=== PATIENT | female | born 1945 | race Caucasian/White ===

== ENCOUNTER 2017-10-27 14:33 | Outpatient (CLI) | payer MEDICARE | END 2017-10-27 14:34 | disposition home or self-care (01) | LOC: BICMAMMO 14:33 | PROVIDERS: ATTEND Obstetrics & Gynecology | DX: Z12.31 Encounter for screening mammogram for malignant neoplasm of breast (principal) | CPT/HCPCS: 77063; 77067 ==

== ENCOUNTER 2020-09-14 22:24 | Inpatient (IN) | payer MEDICARE ==
[2020-09-14] MEDS ORDERED: Dextrose 5% in Water 1,000 ML IV PRN (23:35)
[2020-09-14] MEDS ORDERED: Dextrose 50% Abboject 50 ML SYRINGE SLOW IVP PRN (23:35)
[2020-09-14] MEDS ORDERED: Ventilator Sedation Protocol 1 EACH FS ONE (23:38)
[2020-09-14] MEDS ORDERED: metroNIDAZOLE 500 MG/100 ML BAG ONE (23:38)
[2020-09-14] MEDS ORDERED: Ketamine 50 MG/ML (10ML VIAL) ONE ×2 (23:41→23:42)
[2020-09-14] MEDS ORDERED: Fentanyl 100 MCG/2 ML VIAL ONE (23:41)
[2020-09-14] MEDS ORDERED: Fentanyl BOLUS 250 ML IVPB PRN (23:45)
[2020-09-14] MEDS ORDERED: Lorazepam 2 MG/ML VIAL SLOW IVP PRN (23:45)
[2020-09-14] MEDS ORDERED: Propofol BOLUS 1,000 MG/100 ML VIAL IV PRN (23:45)
[2020-09-14] MEDS ORDERED: fentaNYL Citrate/PF 2,000 MCG in Sodium Chloride 0.9% 60 ML IV SCH (23:45)
[2020-09-14] MEDS ORDERED: Midazolam HCl 2 mg/2 ml Vial ONE (23:45)
[2020-09-14] MEDS ORDERED: DISCONTINUE PREVIOUS NARCOTIC PAIN MEDICATIONS AND BENZODIAZEPINES FS SCH (23:45)
[2020-09-14] MEDS ORDERED: Morphine 2 MG/ML VIAL SLOW IVP PRN (23:45)
[2020-09-14] MEDS ORDERED: Propofol 1,000 MG/100 ML VIAL IV PRN (23:45)
[2020-09-14] MEDS ORDERED: Albumin 5% 500 ML ONE ×2 (23:47→23:48)
[2020-09-14] MEDS ORDERED: Sodium Chloride 0.9% 10 ML ONE (23:57)
[2020-09-15 00:06] LABS: INR-International Normal Ratio 1.4; PTT 35.8 sec (22.9-36.1); Prothrombin Time 17.1 sec (12.0-14.7)
[2020-09-15] MEDS ORDERED: Dextrose 50% Abboject 50 ML SYRINGE ONE ×2 (01:15)
[2020-09-15] MEDS ORDERED: Sodium Bicarb 50 MEQ/50 ML Abboject 8.4% SYRINGE ONE ×3 (01:17→16:13)
[2020-09-15] MEDS ORDERED: Diltiazem HCl 125 MG, Admixture Fee 1 EACH in Sodium Chloride 0.9% 100 ML IVPB SCH (01:30)
[2020-09-15] MEDS ORDERED: Adenosine 6 MG/2 ML VIAL ONE ×2 (01:42→01:48)
[2020-09-15] MEDS ORDERED: Amiodarone 150 MG/3 ML VIAL ONE ×5 (01:55→02:23)
[2020-09-15 02:05] LABS: SARS-CoV-2 NAA Rapid Test Not Detected (NotDetected)
[2020-09-15] MEDS ORDERED: Calcium Chloride 1 GM/10 ML Abboject SYRINGE ONE ×2 (02:30→09:23)
[2020-09-15] MEDS: Sodium Chloride 0.9% 1,000 ML IV SCH ×3 (05:34→16:28)
[2020-09-15] MEDS: Piperacillin/Tazobactam 3.375 GM in Sodium Chloride 0.9% 100 ML IVPB SCH ×5 (05:46→23:03)
[2020-09-15 06:01] LABS: ALT (SGPT) 27 U/L (8-55); AST (SGOT) 99 U/L (5-34); Albumin 1.8 g/dL (3.4-4.8); Alkaline Phosphatase 112 U/L (40-110); Anion Gap 12 mmol/L (10-20); BUN (Urea Nitrogen) 30 mg/dL (9.8-20.1); Bilirubin, Total 2.3 mg/dL (0.2-1.2); Calc. Creatinine Clearance 0 mL/min (70-130); Calcium 7.9 mg/dL (7.8-10.44); Carbon Dioxide 20 mmol/L (23-31); Chloride 110 mmol/L (98-107); Globulin 1.7 g/dL (2.4-3.5); Glucose 112 mg/dL (83-110); Magnesium 1.8 mg/dL (1.6-2.6); Phosphorus 4.7 mg/dL (2.3-4.7); Potassium 4.3 mmol/L (3.5-5.1); Protein, Total 3.5 g/dL (6.0-8.3); Sodium 138 mmol/L (136-145)
--- NOTE | 2020-09-15 06:04 | OP ---
DATE OF PROCEDURE: 09/15/2020 PREOPERATIVE DIAGNOSES: 1. Perforated viscus with acute peritonitis. 2. Colonic mass. 3. Partial small bowel obstruction. 4. Acute septic shock. 5. Acute kidney injury secondary to acute septic shock. POSTOPERATIVE DIAGNOSES: 1. Perforated viscus with acute peritonitis. 2. Colonic mass. 3. Partial small bowel obstruction. 4. Acute septic shock. 5. Acute kidney injury secondary to acute septic shock. 6. Perforated splenic flexure neoplasm with extensive intraabdominal fecal peritonitis. Additionally, extensive adhesions were encountered involving multiple loops of small bowel and abdominal wall. 7. There were also large left lower quadrant abdominal wall defects which contained multiple loops of small and large bowel as well as omentum. OPERATIONS PERFORMED: 1. Placement of triple-lumen left subclavian central venous catheter. 2. Exploratory laparotomy. 3. Extensive adhesiolysis. 4. Total colectomy with segmental small bowel resection. 5. End ileostomy. 6. Placement of feeding nasojejunal tube. ANESTHESIA: General endotracheal. ESTIMATED BLOOD LOSS: 200 mL. FLUIDS GIVEN: 3500 mL crystalloids, 500 mL of albumin, and 3 units packed red blood cells. COUNTS: Sponge and instrument counts were verified as correct x2. COMPLICATIONS: None apparent at the time of operation. INDICATIONS FOR OPERATION: A 74-year-old woman presented to Emergency Department in [place] with several days of worsening abdominal pain, malaise, anorexia, and diarrhea. Clinical and radiographic examination were consistent with perforated viscus with pneumoperitoneum and free intraperitoneal fluid. Additionally, tumor was said to be in the descending colon. Also noted is non-incarcerated left lower quadrant large abdominal wall hernia. The patient was hemodynamically unstable in septic shock. Decision was made to bring the patient back to the operating room for urgent exploratory laparotomy. FINDINGS: Consistent with extensive intraabdominal adhesions from previous abdominal operations. There was a perforation of the proximal transverse colon, just proximal to the splenic flexure, where there is a bulky colonic mass. Additionally, intraabdominal adhesions had caused multiple strictures in the distal ileum. Decision was made to incorporate this with the colectomy. Additionally, the patient underwent previous sigmoidectomy with colostomy, which was ultimately taken down for colorectal anastomosis about approximately 30 years ago. Resecting the bulky tumor in the transverse colon leaves the patient with short length of colon which will be impossible to reach the pelvis. Therefore, decision was made to complete a total colectomy and proceed with permanent ileostomy. DESCRIPTION OF OPERATION: Informed consent was obtained from the patient, was brought to the operating room and placed in supine position. Following general anesthesia, left chest wall sterilely prepped and draped in usual fashion. The skin below the left clavicle was anesthetized with 1% lidocaine. The left subclavian vein was cannulated with an 18-gauge introducer needle returning dark venous blood. Guidewire passed through the needle and advanced into the left subclavian vein without resistance. Needle was withdrawn over the guidewire. A stab incision was made adjacent to the guidewire using 11 scalpel. Dilator was passed over the guidewire dilating the subcutaneous tissues. Dilator was removed and a triple-lumen central venous catheter was advanced over the guidewire and placed in the left subclavian vein without resistance stopping at the 18 cm jemma. Guidewire was removed. Dark venous blood was aspirated from all three ports, which were individually flushed with saline. Sterile dressings were applied. Attention was then turned over to the abdominal part of the operation. At that juncture, Olguin catheter was inserted and placed to bedside drain. Orogastric tube was inserted and placed to wall suction. The abdomen was then sterilely prepped and draped in usual fashion. A midline incision was made using 10 scalpel. Incision was carried through subcutaneous tissues and maintained hemostasis using cautery. The fascia was incised at midline along the line of the incision and the peritoneum was grasped x2 with hemostats. The peritoneal cavity was carefully entered using a fresh scalpel. Upon entrance into the peritoneal cavity, extensive amount of dense adhesions were encountered and were meticulously taken down. 2 hours of the operation were spent during the adhesiolysis. At that juncture, small bowel was run from ligament of Treitz down to the level of the distal ileum, where multiple loops of small bowel was entrapped into the large left lower quadrant defect. This was meticulously dissected off the surrounding structures and the hernia contents were reduced into the peritoneal cavity. The distal sigmoid colon appeared dusky. We were then able to run the rest of the small bowel to the level of the terminal ileum. The distal ileum had long segment with multiple interrupted strictures. Decision was made to incorporate these into the right colectomy. The large intestine was inspected from the cecum through the ascending, transverse colon down to the splenic flexure where a bulky colonic mass was encountered. Distal to this, bowel appeared to be decompressed. Due to previous sigmoidectomy with primary anastomosis, not enough length of colon will be left after the transverse colonic mass is resected. We, therefore, decided to complete the total colectomy. To achieve this, the right colon was mobilized along the white line of Toldt. Hepatic flexure was sharply taken down using Metzenbaum scissors. Care was taken to avoid injury to underlying duodenum. Lesser sac was opened. Stomach was freed from the colon. Care taken to avoid injuries to the stomach itself. Hemostasis was achieved using LigaSure device. The splenic flexure was sharply taken down. The remainder of the colon was then mobilized along the white line of Toldt on the left. I created a rent through the mesorectum through which a SANDY stapler was introduced and bowel was divided. I then created a rent in the mesentery of the ileum proximal to the involved strictured segments, through this again re-loaded SANDY stapler was introduced and the bowel was divided. Mesentery of the specimen was serially divided using LigaSure device with good hemostasis and was passed off the operative field for formal transmission to Pathology. Abdominal cavity was copiously irrigated, cleared with saline. I then turned my attention to the left lower quadrant hernia defect. The hernia sac was excised and the subcutaneous pocket was irrigated, cleared with saline. Large amount of purulent fluid having been evacuated from the peritoneal cavity, the abdominal cavity was again re-irrigated until it was clear. Oozing liver surface as well as the surface of the spleen, hemostasis was achieved here using Arixtra and direct pressure. Once this areas were inspected for good hemostasis, decision was made therefore to proceed with abdominal closure. Prior to this, a feeding nasojejunal tube was inserted by Anesthesia, the tip of which was palpated by myself within the gastric lumen. I manipulated tip of this catheter into proximal small bowel without resistance. I placed a #19 Sushil drain into the left lower quadrant subcutaneous pocket created by the previous hernia defect and allowed this to exit through a separate stab incision. I then closed the peritoneal aspect of the hernia defect using interrupted sutures of 0 Vicryl. I then created a core incision in the right lower quadrant in the area chosen for the ileostomy, and this was dilated to two fingerbreadths. [place] forceps introduced through the peritoneal cavity through this defect, grasping the stapled ileum. This was pulled out through the cord defect and secured within the peritoneal cavity using interrupted sutures of 3-0 silk at 3 points. At this juncture, I placed a sheet of Seprafilm in the deep pelvis returning the rest of the small bowel to normal anatomic location. I placed two other pieces of Seprafilm between small bowel loops due to the prior extensive adhesions. All sponges and instruments having been reported as correct x2. A second #19 Sushil drain was introduced into the deep pelvis and allowed to exit the abdominal cavity through a separate stab incision. Both drains were secured to anterior abdominal wall using 2-0 silk suture. Fascia was then approximated in the midline using a running stitch of #1 single stranded PDS. Subcutaneous tissues were pulse lavaged with 3 L of saline. Deep subcutaneous tissues were approximated using interrupted sutures of 2-0 Vicryl. Skin incisions closed using keith. Sterile dressings were applied here. I turned my attention then to the ileostomy site. Staple line was excised and the functional Ольга ileostomy was perfected using interrupted sutures of 3-0 Vicryl. Ostomy appliance was then put in place. The patient tolerated the operation without any apparent complication and was returned to the intensive care unit in critical, but stable condition. Job ID: [id number] [facility]
[2020-09-15 06:18] LABS: Band 46 % (5-11); Hemoglobin 9.4 g/dL (12.0-16.0); Lymphocytes 4 % (21-51); MDiff Complete? YES; Mean Corpuscular HGB CONC 31.4 g/dL (32.0-36.0); Mean Corpuscular Hemoglobin 28.2 pg (27.0-31.0); Mean Corpuscular Volume 89.9 fL (78.0-98.0); Mean Platelet Volume 9.5 fL (7.4-10.4); Monocytes 1 % (0-10); Neutrophil 49 % (42-75); Platelet Count 80 thou/uL (130-400); Platelet Morphology Comment Appears Decreased; RBC Distribution Width 14.8 % (11.5-14.5); Red Blood Cell (RBC) Count 3.34 mill/uL (4.20-5.40); Toxic Granulation SLIGHT; Vacuoles SLIGHT; White Blood Cell (WBC) Count 21.1 thou/uL (4.8-10.8)
--- NOTE | 2020-09-15 07:19 | HP ---
HISTORY OF PRESENT ILLNESS: Ms. Lai is a 74-year-old woman, who presented to [facility] in [place] earlier today. Patient reports her daughter visited with her and found her quite deconditioned with profound fatigue, abdominal pain, malaise, and poor hygiene over the past week. She was then brought to the emergency department, where she complained of about a week history of progressive abdominal pain, diarrhea, profound fatigue, anorexia, and weight loss over several weeks. Patient denies any fevers at all. She reports some chills. She admits to some nausea, but no emesis. She denies any hematochezia or melena. PAST MEDICAL HISTORY: Pertinent for essential hypertension and diverticulosis coli, for which she underwent surgery years ago. PAST SURGICAL HISTORY: Pertinent for childhood open appendectomy. She had a total abdominal hysterectomy with salpingo-oophorectomy many years ago. Additionally, she had sigmoidectomy with end colostomy approximately 30 years ago followed by colostomy takedown 6 months later. She has had no further surgery since that time. She has never had any colonoscopy. SOCIAL HISTORY: She lives independently. She has been a since November 2019 when she lost her . 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 She denies any cigarette smoking, ethanol, or illicit drug abuse. FAMILY HISTORY: Noncontributory for this patient's age. PREHOSPITALIZATION MEDICATIONS: Some antihypertensive. She does not recall specifics. ALLERGIES: PATIENT DENIES ANY KNOWN DRUG ALLERGIES. REVIEW OF SYSTEMS: 10-point review of systems essentially unremarkable except as stated in past medical history and chief complaint. PHYSICAL EXAMINATION: GENERAL: This reveals a 74-year-old normally developed woman, who is otherwise coherent and interactive, appears stated age. The patient is alert and oriented x3. She appears to be in no acute distress at the time of my evaluation. She is obviously quite fatigued. VITAL SIGNS: Blood pressure 86/43, pulse 113 and irregular, respiratory rate is 15, temperature 97.9 degrees Fahrenheit, oxygen saturation is 96% on room air. HEENT: Reveals normocephalic and atraumatic. Pupils are equal, round, and reactive to light and accommodation. Extraocular muscles are intact bilaterally. No scleral icterus present. Oral mucosa is quite pale and dry. She has no jugular venous distention noted. HEART: Reveals irregular rate and irregular rhythm. LUNGS: Clear to auscultation bilaterally. Her breathing is regular and nonlabored. ABDOMEN: Soft, moderately distended, and diffusely tender to palpation. She has a positive rebound tenderness. She has irregularly shaped midline incisional wound as well as McBurney's wound consistent with prior history of abdominal operations. There is a hernia defect involving the lower abdominal wall on both sides. No evidence of incarceration. Liver and spleen otherwise nonpalpable below costal margins. EXTREMITIES: Reveal 1+ bilateral pedal and radial pulses. Capillary refill nevertheless less than 2 seconds in all extremities. NEUROLOGIC: Reveals no focal deficits present. LABORATORY DATA: Laboratory findings from [place] includes a CBC with 43,700 white blood cells, hemoglobin and hematocrit at 9.9 and 33.5 respectively, MCV is 87.8, platelet count is 165,000. Metabolic profile includes sodium 136, potassium 4.8, chloride is 103, bicarb is 21, BUN is 34, creatinine is 1.79. Her creatinine was normal on 03/01/2020, it was 0.80 at that time. Glucose today is 71. Lactic acid is 1.7, AST and ALT are 63 and 28 respectively. Serum lipase is less than 4 units/L. Albumin is low at 1.9 g/dL. IMAGING DATA: I have personally reviewed CT scan of the abdomen and pelvis, which was obtained in [place] and this is remarkable for a colonic mass involving the descending colon in addition to multiple loops of distended proximal small bowel and pneumoperitoneum. Large abdominal wall defect in the left lower quadrant contains loops of small and large bowel, no evidence of incarceration. There is incidental notation of small bilateral pleural effusions. IMPRESSION: 1. Acute perforated viscus, likely secondary to perforated colon neoplasm. 2. Partial small bowel obstruction. 3. Acute peritonitis secondary to #1. 4. Acute septic shock. 5. Acute kidney injury. 6. Anemia of chronic disease. 7. Moderate protein-calorie malnutrition. RECOMMENDATIONS AND PLAN: 1. Broad-spectrum antibiotic therapy. 2. Urgent exploratory laparotomy and bowel resection with possible colostomy versus primary anastomosis. 3. Aggressive, but cautious fluid resuscitation, monitoring patient's renal function and urinary output as endpoint. 4. We will initiate enteral nutritional supplementation postoperatively. Anticipate ultimate discharge of this patient to inpatient rehabilitation. 5. Above findings and plan discussed with the patient in the presence of her nurse. I have advised her of the risks and benefits of the proposed surgery to include, but not limited to bleeding, infection, injury to bowel or surrounding structures. She indicated understanding information provided. 6. We made several attempts to contact her adult daughter via the telephone number she provided without success. Patient has granted consent for this admission and surgical intervention. Job ID: [id number]
[2020-09-15] MEDS ORDERED: Magnesium 2 GM/50 ML 2 GM in Premix Bag 1 BAG IVPB SCH (07:45)
--- NOTE | 2020-09-15 07:56 | RAD ---
XR Abdomen 1 View/KUB History: Dobbhoff tube placement Comparison: Radiograph prior day Findings: A weighted feeding tube tip projects over the upper abdomen likely within the gastric body. Suction tube tip projects over the gastric body. Right lower quadrant midline surgical keith. Impression: Weighted feeding tube tip and enteric suction tube tips both project over the gastric bod y.
--- NOTE | 2020-09-15 08:06 | RAD ---
XR Chest 1 View Portable History: Intubated patient Comparison: Radiograph September 14, 2020 Findings: Moderate layering pleural effusions. Weighted feeding tube and suction enteric tube tips ar e both below the diaphragm. Endotracheal tube tip at the clavicular level. Heart size is enlarged. Impression: 1. Satisfactory location of the endotracheal tube with tip at the clavicular level. 2. Enteric section and weighted feeding tube tips are below diaphragm although out of field of view. 3. Moderate effusions are similar as well as bibasilar atelectatic changes. 4. Pneumoperitoneum not seen.
--- NOTE | 2020-09-15 08:07 | RAD ---
XR Abdomen 1 View/KUB History: Dobbhoff tube placement Comparison: Radiograph same day Findings: A weighted feeding tube tip projects over the gastric body. Drainage catheters project over the left lower quadrant and central deep left pelvis. Surgical staple s along the abdomen/pelvis. Possible ostomy site over the pelvis. Small volume pneumoperitoneum. Impression: Weighted feeding tube tip and enteric tube suction tips both project over the gastric bod y.
[2020-09-15] MEDS: Famotidine/PF 20 mg/2ml Vial SLOW IVP SCH ×2 (09:00→21:45)
[2020-09-15] MEDS: Enoxaparin Sodium 30 MG/0.3 ML SYRINGE SC SCH (09:00)
[2020-09-15] MEDS ORDERED: Sodium Chloride 0.9% 500 ML IV SCH (09:15)
[2020-09-15] MEDS ORDERED: Esmolol 100 MG/10 ML VIAL ONE (09:23)
[2020-09-15] MEDS ORDERED: Dexamethasone 20 MG/5 ML VIAL ONE (09:23)
[2020-09-15] MEDS ORDERED: Ondansetron PF 4 MG/2 ML Vial ONE (09:23)
[2020-09-15] MEDS ORDERED: Rocuronium Bromide 10 MG/ML (10ML VIAL) ONE (09:23)
--- NOTE | 2020-09-15 09:49 | CT ---
CT OF BRAIN PERFORMED WITHOUT CONTRAST ENHANCEMENT: HISTORY: Altered mental status. FINDINGS: There is some mild generalized ventricular and sulcal prominence which is fairly age-appropriate. Th ere are no signs of intracerebral hemorrhage or extraaxial fluid collections. Mastoid air cells and visualized sinuses are clear. NG tube is present. IMPRESSION: No acute intracranial abnormalities. POS: ZOË
[2020-09-15] MEDS: Amiodarone 450 MG, Admixture Fee 1 EACH in Dextrose 5% in Water 250 ML IVPB SCH ×2 (11:23→23:34)
[2020-09-15] MEDS ORDERED: Sodium Chloride 0.9% 1,000 ML IV SCH (11:30)
[2020-09-15] MEDS ORDERED: Sodium Bicarbonate 50 MEQ in Dextrose 5% in Water 1,000 ML IV SCH (12:45)
[2020-09-15] MEDS ORDERED: Sodium Bicarb 50 MEQ/50 ML Abboject 8.4% SYRINGE IVP SCH ×2 (12:45→16:15)
[2020-09-15] MEDS ORDERED: Fluconazole In NaCl,Iso-Osm 400 MG in Premix Bag 1 BAG IVPB SCH (12:45)
[2020-09-15] MEDS ORDERED: Calcium Chloride 13.6 MEQ in Sodium Chloride 0.9% 100 ML IVPB SCH (12:45)
[2020-09-15] MEDS ORDERED: Artificial Tear Sol 15 ML BOT EA EYE PRN (12:58)
[2020-09-15 16:05] LABS: CO2 Tension 38.7 mmHg (35.0-45.0); O2 Tension (PaO2), arterial 106.6 mmHg (> 70.0); pH, Arterial 7.31 (7.35-7.45)
[2020-09-15 16:06] LABS: Actual Bicarbonate (HCO3a) 19.2 mEq/L (22-28); Analyzer IN Cardio ER; Base Excess (BEa) -6.4 mEq/L (-2.0 to +3.0); Calcium, Ionized (arterial) 1.33 mmol/L (1.12-1.30); Carboxyhemoglobin (COHb) 0.3 gm% (0.0-3.0); Hemoglobin (Hb) 9.6 g/dL (12.0-16.0); Potassium - ABG Lab 3.37 mmol/L (3.70-5.30)
[2020-09-15 16:11] LABS: Puncture Site Arterial Line
[2020-09-15 16:12] LABS: ALV-art Gradient 130.225 mmHg (0-20)
--- NOTE | 2020-09-15 16:13 | PRG ---
DATE OF SERVICE: 09/15/2020 SUBJECTIVE: The patient was seen this morning during rounds. First independently and then with Dr. Carcamo. She is intubated, but not sedated. She has not woken up from anesthesia yet. She is postoperative day 0, status post ex lap, extensive adhesiolysis, total colectomy with segmental small-bowel resection, and end ileostomy. There was concern as the patient did not have a gag or a cough reflex. Pupils were equal and reactive bilaterally. CT scan of the brain was completed at that time. Otherwise, the patient was continuing fluid resuscitation with intermittently hypotensive with associated decline in urinary output. She was responsive to IV fluid resuscitation. OBJECTIVE: VITAL SIGNS: Temperature 95, pulse 68, respirations 10, oxygen saturation 99% on the ventilator, blood pressure 93/56. GENERAL: Elderly female, lying in bed, intubated and sedated with no signs of acute distress. PULMONARY: Equal chest rise and fall. Clear breath sounds bilaterally. No signs of acute respiratory distress. CARDIAC: Regular rate and rhythm. GI: Abdomen is soft, nondistended. Midline abdominal wound dressing is in place with no signs of oozing. Her ileostomy is in place with no output. Tissue appears well perfused. EXTREMITIES: 2+ pulses in all extremities. Gross motor and sensation intact. There is some mild generalized swelling. NEUROLOGIC: GCS is 3T. LABORATORY FINDINGS: White count 21.1, hemoglobin 9.4, hematocrit 30.0, platelets 80. Sodium 138, potassium 4.3, chloride 110, bicarb 20, BUN 30, creatinine 1.20, glucose 112, lactic acid 1.2, phosphorus 4.7, magnesium 1.8. Cortisol is 108.7. DIAGNOSTIC FINDINGS: CT of the brain completed this morning demonstrates no acute intrathoracic abnormalities. ASSESSMENT: 1. Postop day #1, status post ex lap, adhesiolysis, total colectomy with segmental small-bowel resection and end ileostomy due to perforated viscus, colon mass, and peritonitis. 2. Acute kidney injury, improving. 3. Acute respiratory failure due to sepsis. 4. Sacral decubitus ulcer. 5. History of diverticulitis, hypertension, colostomy takedown, and partial bowel resection. PLAN: Continue n.p.o. Continue mechanical ventilation. Continue to monitor for the patient wake up from anesthesia. Pain control and sedation as needed. We will start the patient on Diflucan today. Continue Zosyn. Wound care to evaluate the patient. Continue JABARI drains x2. One amp of bicarb and 1 g of calcium given at bedside. Replace other electrolytes including magnesium. Continue fluid resuscitation and continue to monitor endpoint closely. This patient was seen and evaluated by Dr. Carcamo and myself this morning during rounds. Job ID: [id number] MTDD
[2020-09-15] MEDS: Lactated Ringer's 1,000 ML IV SCH (17:42)
[2020-09-15 21:53] LABS: Actual Bicarbonate (HCO3a) 19.1 mEq/L (22-28); Base Excess (BEa) -4.8 mEq/L (-2.0 to +3.0); CO2 Tension 30.9 mmHg (35.0-45.0); Calcium, Ionized (arterial) 1.29 mmol/L (1.12-1.30); Carboxyhemoglobin (COHb) 0.9 gm% (0.0-3.0); Hemoglobin (Hb) 9.2 g/dL (12.0-16.0); O2 Tension (PaO2), arterial 99.1 mmHg (> 70.0); Potassium - ABG Lab 3.21 mmol/L (3.70-5.30); pH, Arterial 7.41 (7.35-7.45)
[2020-09-15 21:55] LABS: ALV-art Gradient 147.475 mmHg (0-20); Puncture Site Arterial Line
--- NOTE | 2020-09-15 22:04 | RAD ---
CHEST ONE VIEW: History: Intubated patient. Comparison: Radiograph, same day. FINDINGS: Endotracheal tube tip at the clavicular level. Left subclavian central venous catheter with tip in th e SVC. Feeding tube and suction enteric tube tips below the diaphragm, out of the field of view. Prom inent right hemithorax skin fold. Moderate effusions. Airspace opacities are similar. IMPRESSION: Similar examination of the chest. POS: HOME
[2020-09-15 22:39] LABS: Hemoglobin 9.1 g/dL (12.0-16.0); Mean Corpuscular HGB CONC 31.5 g/dL (32.0-36.0); Mean Corpuscular Volume 88.8 fL (78.0-98.0); Mean Platelet Volume 10.5 fL (7.4-10.4); Platelet Count 61 thou/uL (130-400); RBC Distribution Width 14.9 % (11.5-14.5); Red Blood Cell (RBC) Count 3.24 mill/uL (4.20-5.40); White Blood Cell (WBC) Count 22.8 thou/uL (4.8-10.8)
[2020-09-15 22:49] LABS: Band 43 % (5-11); Crenated RBC SLIGHT = 1-5 cells (100X) (None Seen); Lymphocytes 5 % (21-51); MDiff Complete? YES; Metamyelocyte 3 % (0-0); Monocytes 2 % (0-10); Neutrophil 47 % (42-75); Platelet Morphology Comment Appears Decreased
[2020-09-15 22:56] LABS: Anion Gap 16 mmol/L (10-20); BUN (Urea Nitrogen) 30 mg/dL (9.8-20.1); Calc. Creatinine Clearance 48 mL/min (70-130); Calcium 8.5 mg/dL (7.8-10.44); Carbon Dioxide 20 mmol/L (23-31); Chloride 112 mmol/L (98-107); Glucose 84 mg/dL (83-110); Magnesium 2.5 mg/dL (1.6-2.6); Phosphorus 3.2 mg/dL (2.3-4.7); Potassium 3.3 mmol/L (3.5-5.1); Sodium 145 mmol/L (136-145)
[2020-09-16] MEDS: Lactated Ringer's 1,000 ML IV SCH ×3 (02:45→17:13)
[2020-09-16] MEDS ORDERED: Potassium Chloride 40 MEQ in Sodium Chloride 0.9% 250 ML 250 ML IVPB SCH (03:00)
--- NOTE | 2020-09-16 03:31 | PRG ---
DATE OF SERVICE: 09/16/2020 SUBJECTIVE: The patient was seen in the critical care unit, sedated on full mechanical ventilatory support. The patient's vital signs are currently stable and she remains afebrile. The patient's urinary output has been marginal most of the day, but is starting to pick. The patient was given fluids and albumin earlier today for low urinary output. The patient's maintenance IV fluids were changed to lactated Ringer's. LABORATORY DATA: This evening, WBC 22.8, RBC 3.24, hemoglobin 9.1, hematocrit 28.8. Sodium 145, potassium 3.3, chloride 112, carbon dioxide 20, BUN 30, creatinine 1.23, estimated GFR 42, magnesium 2.5. PLAN: Continue full mechanical ventilatory support. Continue to monitor hemodynamics and urinary output. We will replace electrolytes. Job ID: [id number]
[2020-09-16 05:07] LABS: Lactic Acid 0.9 mmol/L (0.5-2.2)
[2020-09-16 05:12] LABS: Anion Gap 16 mmol/L (10-20); BUN (Urea Nitrogen) 31 mg/dL (9.8-20.1); Calc. Creatinine Clearance 49 mL/min (70-130); Calcium 8.4 mg/dL (7.8-10.44); Carbon Dioxide 19 mmol/L (23-31); Chloride 113 mmol/L (98-107); Glucose 102 mg/dL (83-110); Magnesium 2.4 mg/dL (1.6-2.6); Phosphorus 2.8 mg/dL (2.3-4.7); Potassium 3.4 mmol/L (3.5-5.1); Sodium 145 mmol/L (136-145)
[2020-09-16 05:37] LABS: Anisocytosis SLIGHT = 6-15 cells (100X) (0-5/hpf); Band 38 % (5-11); Lymphocytes 9 % (21-51); MDiff Complete? YES; Mean Corpuscular Hemoglobin 27.8 pg (27.0-31.0); Mean Corpuscular Volume 89.6 fL (78.0-98.0); Mean Platelet Volume 6.1 fL (7.4-10.4); Neutrophil 53 % (42-75); Platelet Count 49 thou/uL (130-400); Platelet Morphology Comment Appears Decreased; RBC Distribution Width 15.1 % (11.5-14.5); Red Blood Cell (RBC) Count 3.24 mill/uL (4.20-5.40); White Blood Cell (WBC) Count 20.9 thou/uL (4.8-10.8)
[2020-09-16] MEDS: Piperacillin/Tazobactam 3.375 GM in Sodium Chloride 0.9% 100 ML IVPB SCH ×4 (05:42→23:16)
[2020-09-16] MEDS ORDERED: Potassium Phosphate 30 MMOL in Sodium Chloride 0.9% 250 ML 250 ML IVPB SCH (07:15)
[2020-09-16 07:46] LABS: Actual Bicarbonate (HCO3a) 18.2 mEq/L (22-28); Base Excess (BEa) -5.4 mEq/L (-2.0 to +3.0); CO2 Tension 28.8 mmHg (35.0-45.0); Calcium, Ionized (arterial) 1.28 mmol/L (1.12-1.30); Carboxyhemoglobin (COHb) 1.1 gm% (0.0-3.0); Hemoglobin (Hb) 9.5 g/dL (12.0-16.0); O2 Tension (PaO2), arterial 129.3 mmHg (> 70.0); Potassium - ABG Lab 3.44 mmol/L (3.70-5.30); pH, Arterial 7.42 (7.35-7.45)
[2020-09-16 08:14] LABS: Puncture Site RRA
--- NOTE | 2020-09-16 08:14 | RAD ---
XR Chest 1 View Portable History: Intubated patient Comparison: Radiograph prior day Findings: Moderate effusions are similar. Dense bibasilar atelectasis is similar. The central venous catheter is similar as well as the endotracheal tube along with the weighted feeding tube and enteric suction tubes. Impression: Similar examination of the chest.
[2020-09-16] MEDS ORDERED: Acetaminophen W/ Codeine 5 ML UDCUP PO PRN (08:47)
[2020-09-16] MEDS ORDERED: Morphine 2 MG/ML VIAL SLOW IVP PRN ×2 (08:49→11:45)
[2020-09-16] MEDS ORDERED: Fluconazole In NaCl,Iso-Osm 400 MG in Premix Bag 1 BAG IVPB SCH (09:00)
[2020-09-16] MEDS ORDERED: Furosemide 20 MG/2 ML VIAL SLOW IVP SCH (09:00)
[2020-09-16] MEDS: Famotidine/PF 20 mg/2ml Vial SLOW IVP SCH ×2 (09:18→20:52)
[2020-09-16] MEDS: Enoxaparin Sodium 30 MG/0.3 ML SYRINGE SC SCH ×2 (09:19→09:31)
[2020-09-16] MEDS: Acetaminophen 325 MG/10.15 ML UDCUP PO SCH ×3 (09:31→21:57)
[2020-09-16] MEDS ORDERED: Metoprolol Tartrate 5 MG/5 ML VIAL ONE (10:19)
[2020-09-16] MEDS ORDERED: Albumin 5% 250 ML ONE (10:29)
[2020-09-16] MEDS ORDERED: Metolazone 2.5 MG TAB PO SCH (10:30)
[2020-09-16] MEDS ORDERED: Metoprolol Tartrate 5 MG/5 ML VIAL IVP SCH (10:30)
[2020-09-16 11:14] LABS: Actual Bicarbonate (HCO3a) 19.7 mEq/L (22-28); Base Excess (BEa) -8.9 mEq/L (-2.0 to +3.0); CO2 Tension 55.5 mmHg (35.0-45.0); Calcium, Ionized (arterial) 1.28 mmol/L (1.12-1.30); Carboxyhemoglobin (COHb) 0.8 gm% (0.0-3.0); Hemoglobin (Hb) 10.6 g/dL (12.0-16.0); O2 Tension (PaO2), arterial 68.8 mmHg (> 70.0); Potassium - ABG Lab 4.34 mmol/L (3.70-5.30)
[2020-09-16 11:15] LABS: ALV-art Gradient 360.925 mmHg (0-20); Puncture Site Arterial Line; pH, Arterial 7.17 (7.35-7.45)
[2020-09-16] MEDS ORDERED: Fentanyl BOLUS 250 ML IVPB PRN (11:45)
[2020-09-16] MEDS ORDERED: Ventilator Sedation Protocol 1 EACH FS SCH (11:45)
[2020-09-16] MEDS ORDERED: Propofol BOLUS 1,000 MG/100 ML VIAL IV PRN (11:45)
[2020-09-16] MEDS ORDERED: Propofol 1,000 MG/100 ML VIAL IV PRN (11:45)
--- NOTE | 2020-09-16 12:02 | RAD ---
XR Chest 1 View Portable History: Reintubated Comparison: Radiograph same day Findings: Endotracheal tube tip at the clavicular level. Large effusions. Dense atelectasis both lung bases. Central venous catheter is similar. The enteric suction tube has been removed. The weighted feeding tube tip is below diaphragm although out of field of view. No pneumothorax. Impression: 1. Endotracheal tube tip at the clavicular level and the position. 2. Removed enteric suction tube.
[2020-09-16] MEDS: fentaNYL Citrate/PF 2,000 MCG in Sodium Chloride 0.9% 60 ML IV SCH (12:42)
[2020-09-16 12:51] LABS: Actual Bicarbonate (HCO3a) 18.3 mEq/L (22-28); Base Excess (BEa) -5.6 mEq/L (-2.0 to +3.0); CO2 Tension 29.9 mmHg (35.0-45.0); Calcium, Ionized (arterial) 1.22 mmol/L (1.12-1.30); Carboxyhemoglobin (COHb) 0.4 gm% (0.0-3.0); O2 Tension (PaO2), arterial 463.9 mmHg (> 70.0); Potassium - ABG Lab 3.99 mmol/L (3.70-5.30)
[2020-09-16 12:53] LABS: ALV-art Gradient -216.075 mmHg (0-20); Puncture Site Arterial Line
--- NOTE | 2020-09-16 14:33 | PRG ---
DATE OF SERVICE: 09/16/2020 I am seeing Ms. Lai today. She is a 74-year-old woman, who is postoperative day #1, status post exploratory laparotomy, extensive adhesiolysis, total colectomy with ileostomy. The patient is awake and alert on mechanical ventilator support. This morning, moving all extremities and following commands. Urinary output has been marginal overnight. She is on no vasopressor or inotropic support. OBJECTIVE: VITAL SIGNS: This morning included blood pressure 113/83, pulse is 73, respiratory rate 22, maximum temperature in last 24 hours is 98.1 degrees Fahrenheit, and oxygen saturation is 100% on FiO2 of 40%. HEENT: Pupils are equal, round, and reactive to light bilaterally. NECK: She has no jugular venous distention noted. HEART: Reveals regular rate and rhythm. No murmurs or gallops auscultated. LUNGS: Clear to auscultation bilaterally. Breathing, regular and unlabored. ABDOMEN: Soft and nondistended. Ileostomy is viable and nonproductive at this time. SKIN: Incision remains intact, clean, and dry. Peritoneal Kamar-Quinn drain returned 720 mL of serosanguinous fluid over the last 24 hours. The subcutaneous Kamar-Quinn drain returned 90 mL of serosanguinous fluid . EXTREMITIES: Reveal 2+ radial and pedal pulses bilaterally. NEUROLOGIC: Reveals no focal deficits present. LABORATORY FINDINGS: Include a CBC with 20,900 white blood cells, hemoglobin and hematocrit of 9.0 and 29.0 respectively, and platelet count is 49,000. Metabolic profile; sodium 145, potassium 3.4, chloride is 113, bicarb is 19, BUN is 31, creatinine is 1.20, glucose is 102, magnesium is 2.4, and phosphorus is 2.8. Chest x-ray today reveals residual right pleural effusion. No pneumothorax present. IMPRESSION: 1. Postop day #1, status post exploratory laparotomy, extensive adhesiolysis, total colectomy with permanent end-ileostomy. Pathology report is pending with regard to the colonic tumor mass. 2. Acute septic shock, stable. 3. Clinical oliguric renal insufficiency. I suspect the patient is probably still under resuscitated. 4. Acute hypokalemia. 5. Acute metabolic acidosis of hyperchloremic nature. 6. Acute hypophosphatemia. 7. Acute Respiratory Failure PLAN: 1. The patient was weaned and extubated and was reintubated within 2 hours for worsening hypoxemia as well as hypercarbia. 2. Correct abnormal electrolytes. 3. Increase total fluid intake. The patient was noted with acute hypoalbuminemia with serum albumin of 1.8 yesterday. Therefore, we will start albumin infusion to increase oncotic pressure in the meantime. We will obtain a 2D echocardiography to evaluate this patient's cardiac function. Above findings and plan discussed with the patient prior to intubation and also with the patient's son by telephone conversation. She indicates understanding information provided. I have answered her questions. Total critical care time is 45 minutes. Job ID: [id number] MTDD
[2020-09-16] MEDS: Albumin 25% 25 GM/100 ML BOT IVPB SCH ×2 (14:57→23:15)
[2020-09-16] MEDS ORDERED: Lactated Ringer's 1,000 ML IV SCH (15:45)
[2020-09-16 18:05] LABS: Lactic Acid 1.3 mmol/L (0.5-2.2)
[2020-09-16 18:09] LABS: ALT (SGPT) 24 U/L (8-55); AST (SGOT) 43 U/L (5-34); Albumin 2.6 g/dL (3.4-4.8); Alkaline Phosphatase 158 U/L (40-110); Anion Gap 17 mmol/L (10-20); BUN (Urea Nitrogen) 32 mg/dL (9.8-20.1); Bilirubin, Total 3.4 mg/dL (0.2-1.2); Calc. Creatinine Clearance 45 mL/min (70-130); Calcium 8.2 mg/dL (7.8-10.44); Carbon Dioxide 18 mmol/L (23-31); Chloride 114 mmol/L (98-107); Globulin 1.5 g/dL (2.4-3.5); Glucose 151 mg/dL (83-110); Magnesium 2.2 mg/dL (1.6-2.6); Phosphorus 3.3 mg/dL (2.3-4.7); Potassium 3.7 mmol/L (3.5-5.1); Protein, Total 4.1 g/dL (6.0-8.3); Sodium 145 mmol/L (136-145)
[2020-09-16 18:14] LABS: Band 54 % (5-11); Hemoglobin 7.7 g/dL (12.0-16.0); Hypochromia SLIGHT = 6-15 cells (100X) (0-5/hpf); Large Platelets SLIGHT; Lymphocytes 11 % (21-51); MDiff Complete? YES; Mean Corpuscular HGB CONC 31.6 g/dL (32.0-36.0); Mean Corpuscular Volume 88.8 fL (78.0-98.0); Mean Platelet Volume 12.4 fL (7.4-10.4); Monocytes 1 % (0-10); Neutrophil 33 % (42-75); Platelet Count 30 thou/uL (130-400); Platelet Morphology Comment Appears Decreased; Polychromasia SLIGHT = 2-3 cells (100X) (0-2/hpf); RBC Distribution Width 15.2 % (11.5-14.5); Reactive Lymphocytes 1 % (0-10); Red Blood Cell (RBC) Count 2.76 mill/uL (4.20-5.40); Target Cells SLIGHT = 2-5 cells (100X) (0-1/hpf); White Blood Cell (WBC) Count 12.7 thou/uL (4.8-10.8)
[2020-09-16] MEDS: Amiodarone 450 MG, Admixture Fee 1 EACH in Dextrose 5% in Water 250 ML IVPB SCH (18:19)
[2020-09-16] MEDS ORDERED: Potassium Phosphate 15 MMOL in Sodium Chloride 0.9% 250 ML 250 ML IVPB SCH (19:00)
[2020-09-16] MEDS ORDERED: Sodium Bicarb 50 MEQ/50 ML Abboject 8.4% SYRINGE IVP SCH (22:30)
[2020-09-17] MEDS ORDERED: Sodium Bicarb 50 MEQ/50 ML Abboject 8.4% SYRINGE IVP SCH (00:15)
[2020-09-17] MEDS: Lactated Ringer's 1,000 ML IV SCH ×3 (03:37→17:50)
[2020-09-17] MEDS: Acetaminophen 325 MG/10.15 ML UDCUP PO SCH ×4 (03:41→20:25)
[2020-09-17] MEDS ORDERED: Furosemide 100 MG in Sodium Chloride 0.9% 100 ML IVPB SCH (04:00)
[2020-09-17] MEDS: DOBUTamine 500 mg/250 ml 500 MG in Premix Bag 1 BAG IVPB SCH ×2 (04:12→09:30)
[2020-09-17 04:29] LABS: Anion Gap 15 mmol/L (10-20); BUN (Urea Nitrogen) 36 mg/dL (9.8-20.1); Calc. Creatinine Clearance 45 mL/min (70-130); Calcium 8.2 mg/dL (7.8-10.44); Carbon Dioxide 22 mmol/L (23-31); Chloride 112 mmol/L (98-107); Glucose 178 mg/dL (83-110); Magnesium 2.2 mg/dL (1.6-2.6); Phosphorus 3.8 mg/dL (2.3-4.7); Potassium 3.6 mmol/L (3.5-5.1); Sodium 145 mmol/L (136-145)
[2020-09-17 05:10] LABS: Hemoglobin 8.4 g/dL (12.0-16.0); Mean Corpuscular Hemoglobin 28.4 pg (27.0-31.0); Mean Corpuscular Volume 88.7 fL (78.0-98.0); Mean Platelet Volume 13.9 fL (7.4-10.4); Platelet Count 24 thou/uL (130-400); RBC Distribution Width 15.3 % (11.5-14.5); Red Blood Cell (RBC) Count 2.95 mill/uL (4.20-5.40); White Blood Cell (WBC) Count 9.7 thou/uL (4.8-10.8)
[2020-09-17 05:12] LABS: Band 25 % (5-11); Lymphocytes 12 % (21-51); MDiff Complete? YES; Myelocyte 1 % (0-0); Neutrophil 62 % (42-75); Platelet Morphology Comment Appears Decreased; Target Cells SLIGHT = 2-5 cells (100X) (0-1/hpf)
--- NOTE | 2020-09-17 05:23 | PRG ---
DATE OF SERVICE: 09/16/2020 SUBJECTIVE: The patient was seen during evening rounds in the critical care unit. The patient is currently sedated and on full ventilatory support. The patient has had a low urinary output all day. The patient did receive albumin and a liter bolus of normal saline earlier today. The patient does continue to follow commands. The patient is currently not on any vasopressors or inotropes. OBJECTIVE: VITAL SIGNS: Stable and she remains afebrile. The patient's JABARI drain has a minimal serosanguineous output. LABORATORY DATA: P.m. labs include WBC 12.7, RBC 2.76, hemoglobin 7.7, hematocrit 24.5, platelets 30. PLAN: We will transfuse 1 unit of packed red blood cells as the patient's hemoglobin is 7.7 and her urinary output is low. Continue to monitor urinary output and hemodynamics. We will start the patient on dobutamine as her SVRI is elevated and cardiac output and cardiac index are low. Continue supportive care and full ventilatory support. Pending echocardiogram. The plan was discussed with Dr. Carcamo. Job ID: [id number]
[2020-09-17] MEDS: Piperacillin/Tazobactam 3.375 GM in Sodium Chloride 0.9% 100 ML IVPB SCH (06:17)
--- NOTE | 2020-09-17 07:57 | RAD ---
Portable frontal chest radiograph: 09/17/2020 COMPARISON: 09/16/2020 HISTORY: Intubated patient FINDINGS: Stable endotracheal tube, Dobbhoff feeding tube, and left vascular catheter. New nasogastri c tube extends into the left upper quadrant. Persistent pulmonary vascular congestion. Persistent bibasilar airspace disease/consolidation with associated pleural effusions, left greater than right. IMPRESSION: New nasogastric tube-otherwise unchanged.
[2020-09-17 08:11] LABS: Actual Bicarbonate (HCO3a) 18.9 mEq/L (22-28); Base Excess (BEa) -3.2 mEq/L (-2.0 to +3.0); CO2 Tension 24.4 mmHg (35.0-45.0); Calcium, Ionized (arterial) 1.17 mmol/L (1.12-1.30); Carboxyhemoglobin (COHb) 1.1 gm% (0.0-3.0); Hemoglobin (Hb) 8.9 g/dL (12.0-16.0); Potassium - ABG Lab 3.31 mmol/L (3.70-5.30); pH, Arterial 7.51 (7.35-7.45)
[2020-09-17 08:12] LABS: Puncture Site Arterial Line
[2020-09-17] MEDS: Metolazone 5 MG TAB PO SCH (09:26)
[2020-09-17 09:29] LABS: Actual Bicarbonate (HCO3a) 21.3 mEq/L (22-28); Base Excess (BEa) -2.2 mEq/L (-2.0 to +3.0); Calcium, Ionized (arterial) 1.17 mmol/L (1.12-1.30); Carboxyhemoglobin (COHb) 0.7 gm% (0.0-3.0); Hemoglobin (Hb) 9.2 g/dL (12.0-16.0); O2 Tension (PaO2), arterial 150.3 mmHg (> 70.0); Potassium - ABG Lab 3.29 mmol/L (3.70-5.30); pH, Arterial 7.44 (7.35-7.45)
[2020-09-17] MEDS: Fluconazole In NaCl,Iso-Osm 200 MG in Premix Bag 1 BAG IVPB SCH (09:29)
[2020-09-17] MEDS: Enoxaparin Sodium 30 MG/0.3 ML SYRINGE SC SCH (09:29)
[2020-09-17 09:30] LABS: Puncture Site Arterial Line
[2020-09-17] MEDS: Albumin 25% 25 GM/100 ML BOT IVPB SCH (09:33)
[2020-09-17] MEDS: fentaNYL Citrate/PF 2,000 MCG in Sodium Chloride 0.9% 60 ML IV SCH (10:36)
[2020-09-17] MEDS: Amiodarone 450 MG, Admixture Fee 1 EACH in Dextrose 5% in Water 250 ML IVPB SCH (11:59)
[2020-09-17] MEDS: Piperacillin/Tazobactam 2.25 GM in Sodium Chloride 0.9% 100 ML IVPB SCH ×3 (11:59→23:38)
[2020-09-17] MEDS: Lorazepam 2 MG/ML VIAL SLOW IVP PRN (13:48)
[2020-09-17 14:15] LABS: Critical Call w/ Read Back CCU.JAG; Hemoglobin 8.4 g/dL (12.0-16.0); Mean Corpuscular HGB CONC 32.2 g/dL (32.0-36.0); Mean Corpuscular Hemoglobin 28.5 pg (27.0-31.0); Mean Corpuscular Volume 88.6 fL (78.0-98.0); Mean Platelet Volume 13.5 fL (7.4-10.4); Platelet Count 21 thou/uL (130-400); RBC Distribution Width 15.7 % (11.5-14.5); Red Blood Cell (RBC) Count 2.96 mill/uL (4.20-5.40); White Blood Cell (WBC) Count 11.8 thou/uL (4.8-10.8)
[2020-09-17 14:23] LABS: Anion Gap 13 mmol/L (10-20); BUN (Urea Nitrogen) 33 mg/dL (9.8-20.1); Calc. Creatinine Clearance 45 mL/min (70-130); Calcium 7.9 mg/dL (7.8-10.44); Carbon Dioxide 23 mmol/L (23-31); Chloride 113 mmol/L (98-107); Glucose 177 mg/dL (83-110); Magnesium 2.1 mg/dL (1.6-2.6); Phosphorus 3.1 mg/dL (2.3-4.7); Potassium 3.4 mmol/L (3.5-5.1); Sodium 146 mmol/L (136-145)
[2020-09-17 14:42] LABS: Band 12 % (5-11); Lymphocytes 6 % (21-51); Monocytes 1 % (0-10); Neutrophil 81 % (42-75)
[2020-09-17 14:43] LABS: MDiff Complete? YES
[2020-09-17 14:44] LABS: Anisocytosis SLIGHT = 6-15 cells (100X) (0-5/hpf); Target Cells SLIGHT = 2-5 cells (100X) (0-1/hpf); Vacuoles MODERATE
[2020-09-17] MEDS ORDERED: Potassium Phosphate 30 MMOL in Sodium Chloride 0.9% 250 ML 250 ML IVPB SCH (16:30)
--- NOTE | 2020-09-17 16:47 | PRG ---
DATE OF SERVICE: 09/17/2020 SUBJECTIVE: The patient was seen this morning during rounds. She is intubated and sedated. Overnight, the patient was placed on a Lasix drip as well as a dobutamine drip. Since that time, the patient's urinary output has improved minimally from 0 to 5. She is hemodynamically stable. Awake and alert. Answers questions appropriately. Nursing at the bedside reports no significant changes, JABARI drains continue to put out serosanguineous output. OBJECTIVE: VITAL SIGNS: Temperature 97.6, pulse 111, respirations 14, oxygen saturation 100% on the ventilator, and blood pressure 128/95. GENERAL: An ill-appearing elderly female, intubated and sedated, with no signs of acute distress. PULMONARY: Equal chest rise and fall. Clear breath sounds bilaterally and slightly diminished at the bases. No signs of acute respiratory distress. CARDIAC: Tachycardic, but regular rhythm. GI: Abdomen is soft, appropriately tender to palpation, nondistended. Ostomy is well perfused and there is a green output in bag. No gas. Midline abdominal wound is clean, dry, and intact. Saleem were removed and replaced by nursing today. Two left lower quadrant drains, one with higher outputs with serosanguineous output and the other with serous output. EXTREMITIES: 2+ pulses in all extremities. Edema throughout upper and lower extremities. NEUROLOGIC: GCS is eyes 3, verbal 1T, and motor 6. LABORATORY FINDINGS: White count 9.7, hemoglobin 8.4, hematocrit 26.2, and platelets 24. Sodium 146, potassium 3.6, chloride 111, bicarb 22, BUN 36, creatinine 1.29, and glucose 178. Phosphorus 3.8. Magnesium 2.2. BNP 476. DIAGNOSTIC FINDINGS: Chest x-ray completed this morning demonstrates new nasogastric tube, otherwise unchanged. Echo completed today demonstrates ejection fraction is visually estimated at 45% to 50%, left ventricular size is normal, apex is hypokinetic. ASSESSMENT: 1. Postoperative day 2 status post exploratory laparotomy, extensive adhesiolysis, total colectomy with segmental small-bowel resection, and end colostomy for colon mass and colon rupture. 2. Acute respiratory failure due to sepsis. 3. Sepsis. 4. Acute kidney injury, slightly worsened. 5. Supraventricular tachycardia, now rate controlled. 6. Thrombocytopenia. 7. History of diverticulitis. 8. Hypertension. 9. Colostomy takedown. 10. Partial bowel resection. PLAN: Continue n.p.o. Continue dobutamine and Lasix drips. Re-evaluate labs this afternoon. Continue amiodarone drip. Continue Zosyn. We will renal dose the patient's antibiotics. Job ID: [id number]
[2020-09-17] MEDS: Famotidine/PF 20 mg/2ml Vial SLOW IVP SCH ×2 (20:26→20:40)
--- NOTE | 2020-09-18 01:38 | PRG ---
DATE OF SERVICE: 09/17/2020 The patient was seen during evening rounds in the critical care unit. The patient remains on full ventilatory support. The patient is sedated, but arousable and follows commands. The patient remains on a dobutamine drip at this time. The patient's Lovenox has been held due to her thrombocytopenia. The patient had her electrolytes replaced earlier today. The patient is hypothermic, currently on a warmer. The patient's urinary output has increased some today. Later in the night, the patient's blood pressure did drop. Albumin was given. We will continue to monitor urinary output and hemodynamics. We will continue to warm patient for hypothermia. Continue full mechanical ventilatory support until patient is hemodynamically stable. Job ID: [id number]
[2020-09-18] MEDS: Acetaminophen 325 MG/10.15 ML UDCUP PO SCH ×4 (03:07→20:18)
[2020-09-18] MEDS: Amiodarone 450 MG, Admixture Fee 1 EACH in Dextrose 5% in Water 250 ML IVPB SCH ×2 (03:10→17:57)
[2020-09-18 04:11] LABS: Magnesium 2.1 mg/dL (1.6-2.6); Phosphorus 4.5 mg/dL (2.3-4.7)
[2020-09-18 04:15] LABS: Platelet Count 20 thou/uL (130-400)
[2020-09-18 04:53] LABS: Anisocytosis SLIGHT = 6-15 cells (100X) (0-5/hpf); Band 33 % (5-11); Hemoglobin 8.3 g/dL (12.0-16.0); Lymphocytes 10 % (21-51); MDiff Complete? YES; Mean Corpuscular HGB CONC 30.7 g/dL (32.0-36.0); Mean Corpuscular Hemoglobin 27.6 pg (27.0-31.0); Mean Corpuscular Volume 89.9 fL (78.0-98.0); Mean Platelet Volume 14.7 fL (7.4-10.4); Neutrophil 57 % (42-75); Platelet Morphology Comment Appears Decreased; RBC Distribution Width 15.8 % (11.5-14.5); Red Blood Cell (RBC) Count 3.01 mill/uL (4.20-5.40); White Blood Cell (WBC) Count 12.7 thou/uL (4.8-10.8)
[2020-09-18] MEDS: Piperacillin/Tazobactam 2.25 GM in Sodium Chloride 0.9% 100 ML IVPB SCH ×3 (05:04→17:03)
[2020-09-18] MEDS: fentaNYL Citrate/PF 2,000 MCG in Sodium Chloride 0.9% 60 ML IV SCH (06:58)
[2020-09-18 07:34] LABS: Anion Gap 16 mmol/L (10-20); BUN (Urea Nitrogen) 34 mg/dL (9.8-20.1); Calc. Creatinine Clearance 46 mL/min (70-130); Calcium 7.8 mg/dL (7.8-10.44); Carbon Dioxide 21 mmol/L (23-31); Chloride 113 mmol/L (98-107); Glucose 176 mg/dL (83-110); Potassium 4.3 mmol/L (3.5-5.1); Sodium 146 mmol/L (136-145)
[2020-09-18] MEDS: Lactated Ringer's 1,000 ML IV SCH (07:55)
[2020-09-18] MEDS: Metolazone 5 MG TAB PO SCH (07:55)
[2020-09-18] MEDS: Enoxaparin Sodium 30 MG/0.3 ML SYRINGE SC SCH (08:02)
[2020-09-18] MEDS: Fluconazole In NaCl,Iso-Osm 200 MG in Premix Bag 1 BAG IVPB SCH (08:19)
[2020-09-18] MEDS ORDERED: Sodium Bicarbonate 150 MEQ in Dextrose 5% in Water 1,000 ML IV SCH (08:30)
[2020-09-18] MEDS ORDERED: Metolazone 2.5 MG TAB PO SCH (09:00)
[2020-09-18] MEDS: Lorazepam 2 MG/ML VIAL SLOW IVP PRN (09:41)
[2020-09-18] MEDS: Albumin 25% 25 GM/100 ML BOT IVPB SCH (15:56)
[2020-09-18] MEDS ORDERED: Sodium Bicarbonate 50 MEQ in Dextrose 5% in Water 1,000 ML IV SCH (16:00)
--- NOTE | 2020-09-18 16:39 | PRG ---
DATE OF SERVICE: 09/18/2020 SUBJECTIVE: Ms. Lai is a 74-year-old woman, postoperative day #3, status post exploratory laparotomy, extensive adhesiolysis, total colectomy with ileostomy. The patient remains on mechanical ventilator support. She is sedated with fentanyl. She remains on dobutamine at 2.5 mcg/kg per minute. Urinary output is slightly improving. She is arousable to voice, moving all extremities and following commands. OBJECTIVE: VITAL SIGNS: This morning include blood pressure 118/85, pulse is 112 and irregular, respiratory rate is 18, maximum temperature in last 24 hours is 98.6 degrees Fahrenheit, oxygen saturation is 100% on FiO2 of 35% on mechanical ventilator support. HEENT: Reveals pupils equally round and reactive to light bilaterally. NECK: She has no jugular venous distention noted. HEART: Reveals irregular rate and irregular rhythm. LUNGS: Reveal bibasilar rhonchi. Breathing regular and nonlabored. ABDOMEN: Soft and nondistended. Incision is intact, clean, and dry. Kamar-Quinn drains in place returning 105 and 990 mL of serous fluid respectively over the last 24 hours. EXTREMITIES: Reveal 2+ radial and pedal pulses bilaterally. No ankle edema is present. NEUROLOGIC: Reveals no focal deficits present. LABORATORY FINDINGS: Today include a CBC with 12,700 white blood cells, hemoglobin and hematocrit stable at 8.3 and 27.0 respectively, platelet count is low at 20,000, but stable. Metabolic profile; sodium 146, potassium is 4.3, chloride is 113, bicarb is 21, BUN is 34, creatinine is 1.36, glucose is 176, magnesium 2.1, and phosphorus is 4.5. BNP 511.9. I have personally reviewed chest x-ray, which was obtained yesterday. This reveals cardiomegaly with increasing pulmonary vascular markings. I did also review the report of the echocardiogram, which was obtained yesterday, pertinent for ejection fraction of 45% to 50%, apical hypokinesis, [id number] mitral regurgitation. IMPRESSION: 1. Postoperative day #3, status post exploratory laparotomy, total colectomy with ileostomy, and extensive adhesiolysis. 2. Acute respiratory failure. 3. Acute congestive heart failure. 4. Acute blood loss anemia, stable. 5. Acute hypomagnesemia. 6. Acute hypernatremia. PLAN: 1. Correct abnormal electrolytes. 2. We will continue with inotropic support and gentle diuresis. 3. We will increase free water intake, however, decrease overall total fluid intake. 4. We will ask Cardiology to evaluate the patient with regard to the abnormal echocardiography findings. Above findings and plan have been discussed with the patient's son, his name is Eitan, and he has indicated understanding of information provided and agreed with the plans. I have answered his questions. Total critical care time is 40 minutes. Job ID: [id number]
[2020-09-18 17:35] LABS: Troponin I 0.948 ng/mL (< 0.028)
[2020-09-18] MEDS ORDERED: Sodium Chloride 0.9% (PF) 10 ML VIAL FS PRN (20:15)
[2020-09-18] MEDS: Pantoprazole 40 MG VIAL IVP SCH (20:22)
[2020-09-18] MEDS: DOBUTamine 500 mg/250 ml 500 MG in Premix Bag 1 BAG IVPB SCH (20:25)
--- NOTE | 2020-09-18 22:28 | OP ---
DATE OF PROCEDURE: 09/18/2020 PROCEDURE PERFORMED: Arterial line insertion. INDICATION: Invasive monitoring and frequent blood gas analysis as needed in face of hemodynamic monitoring. Further indication, deveined and nonviable right radial arterial line. Shock requiring inotropic agents. Acute heart failure. CONSENT: Implied/emergent. DESCRIPTION OF PROCEDURE: Patient was prepped and draped in usual fashion. Left radial artery was palpated. Collateral circulation was confirmed. Hand hygiene was undertaken. The patient's wrist was secured in a flexed position, secured with tape to bedside table that had been cleaned with bleach wipe. The area of the skin was prepped with 4% chlorhexidine and allowed to completely dry. Under sterile technique, sterile gloves, mask were donned. Sterile field was created with OR towels. Next, a 20-gauge arrow catheter was inserted with palpation to the left radial artery with one attempt, bright red blood flashed. Via Seldinger technique, catheter was placed over the guidewire with no complication. Guidewire and the needle were then removed. The catheter was advanced to the hub. Pressure was applied at the end of the catheter, this was removed. Next, a flushed pressurized line was hooked up to the catheter. The catheter was next sewn in place with 0 nylon suture x1. This was secured with Tegaderm and tape. There was good waveform. Sharps were disposed off. Total blood loss less than 2 mL. Confirmed placement by an appropriate waveform on the monitor. COMPLICATIONS: None. The patient tolerated the procedure well. Job ID: [id number]
[2020-09-19] MEDS: Piperacillin/Tazobactam 2.25 GM in Sodium Chloride 0.9% 100 ML IVPB SCH ×5 (00:08→23:18)
[2020-09-19] MEDS: Albumin 25% 25 GM/100 ML BOT IVPB SCH ×2 (00:08→07:58)
[2020-09-19] MEDS: Acetaminophen 325 MG/10.15 ML UDCUP PO SCH ×4 (03:10→20:19)
[2020-09-19 04:50] LABS: Hemoglobin 8.2 g/dL (12.0-16.0); Mean Corpuscular Volume 90.3 fL (78.0-98.0); Platelet Count 26 thou/uL (130-400); RBC Distribution Width 16.1 % (11.5-14.5); Red Blood Cell (RBC) Count 2.94 mill/uL (4.20-5.40); White Blood Cell (WBC) Count 14.2 thou/uL (4.8-10.8)
[2020-09-19 05:15] LABS: MDiff Complete? YES
[2020-09-19 05:16] LABS: Band 20 % (5-11); Large Platelets SLIGHT; Lymphocytes 8 % (21-51); Metamyelocyte 1 % (0-0); Neutrophil 71 % (42-75); Platelet Morphology Comment Appears Decreased
[2020-09-19 05:32] LABS: Anion Gap 13 mmol/L (10-20); BUN (Urea Nitrogen) 36 mg/dL (9.8-20.1); Calc. Creatinine Clearance 54 mL/min (70-130); Carbon Dioxide 24 mmol/L (23-31); Chloride 112 mmol/L (98-107); Glucose 170 mg/dL (83-110); Phosphorus 3.1 mg/dL (2.3-4.7); Sodium 145 mmol/L (136-145)
[2020-09-19 07:22] LABS: Critical Call Chem Troponin I RESULT DECREASING; Troponin I 0.712 ng/mL (< 0.028)
[2020-09-19] MEDS: Amiodarone 450 MG, Admixture Fee 1 EACH in Dextrose 5% in Water 250 ML IVPB SCH (07:53)
[2020-09-19] MEDS: Metolazone 5 MG TAB PO SCH (07:53)
[2020-09-19] MEDS: Fluconazole In NaCl,Iso-Osm 200 MG in Premix Bag 1 BAG IVPB SCH (08:00)
[2020-09-19 08:48] LABS: Actual Bicarbonate (HCO3a) 25.3 mEq/L (22-28); Base Excess (BEa) -0.8 mEq/L (-2.0 to +3.0); CO2 Tension 49.1 mmHg (35.0-45.0); Calcium, Ionized (arterial) 1.18 mmol/L (1.12-1.30); Hemoglobin (Hb) 8.6 g/dL (12.0-16.0); O2 Tension (PaO2), arterial 65.4 mmHg (> 70.0); Potassium - ABG Lab 3.94 mmol/L (3.70-5.30); pH, Arterial 7.33 (7.35-7.45)
[2020-09-19 08:51] LABS: Puncture Site Arterial Line
[2020-09-19 08:52] LABS: ALV-art Gradient 122.775 mmHg (0-20)
[2020-09-19] MEDS: Furosemide 100 MG in Sodium Chloride 0.9% 100 ML IVPB SCH (09:59)
[2020-09-19] MEDS ORDERED: Furosemide 40 MG/4 ML VIAL SLOW IVP SCH (10:30)
--- NOTE | 2020-09-19 13:59 | PRG ---
DATE OF SERVICE: 09/19/2020 SUBJECTIVE: Ms. Lai is currently stable. Likely extubation in the next 24 hours. She is currently intubated and sedated. Her cardiac output and cardiac index have improved overnight. She is on low-dose Dobutrex. It has not been weaned. OBJECTIVE: VITAL SIGNS: Blood pressure 129/85, pulse 123, respirations 20. LUNGS: Rhonchi and rales bilaterally. HEART: Irregularly irregular. ABDOMEN: Decreased bowel sounds. EXTREMITIES: 1+ pitting edema. PERTINENT LABORATORY DATA: Hemoglobin 8.2, hematocrit 26.5, platelet count 26. IMPRESSION: 1. Acute diastolic heart failure. 2. Recent colectomy. 3. Mild cardiomyopathy. 4. [id number] mitral regurgitation. RECOMMENDATIONS: Ms. Lai's blood pressure appears stable. Her heart rate is increased in the 120s. This is likely due to dobutamine. We would recommend trying to wean off Dobutrex. Her cardiac output and cardiac index have improved. Her cardiac output and index may also improve with decreasing heart rate. The patient is to be extubated in the next 24 hours if weanable. Job ID: [id number]
[2020-09-19] MEDS ORDERED: Digoxin 0.5 MG/2 ML AMP SLOW IVP SCH (15:00)
--- NOTE | 2020-09-19 15:08 | PRG ---
DATE OF SERVICE: 09/19/2020 SUBJECTIVE: Ms. Lai is a 74-year-old woman, postoperative day #4, status post exploratory laparotomy, extensive adhesiolysis, total colectomy with ileostomy. The patient remains on mechanical ventilator support. She is on dobutamine at 2.5 mcg/kg per minute. Urinary output is adequate for this patient's age and weight. She is on no vasopressor support. She is tolerating tube feeds at 10 mL/h. She is on amiodarone by continuous infusion to treat acute paroxysmal atrial fibrillation with rapid ventricular response. OBJECTIVE: VITAL SIGNS: Currently include blood pressure 129/85, pulse 123 and irregular, respiratory rate is 12, maximum temperature in last 24 hours is 98.6 degrees Fahrenheit, oxygen saturation 100% on FiO2 of 35%, mechanical ventilator support. HEENT: Pupils are equal, round, and reactive to light bilaterally. NECK: She has no jugular venous distention noted. HEART: Reveals irregular rate and rhythm. LUNGS: Reveals scattered rhonchi. Breathing regular and nonlabored. ABDOMEN: Soft, nontender, and nondistended. Ileostomy is viable with moderate amount of liquid stool. SKIN: Incision is intact, clean, dry. NEUROLOGIC: Reveals no focal deficits present. LABORATORY FINDINGS: Today include a CBC with 14,200 white blood cells, hemoglobin and hematocrit are 8.2 and 26.5 respectively. Platelet count is 26,000. Metabolic profile; sodium 145, potassium 4.0, chloride is 112, bicarb is 24, BUN is 36, creatinine is 1.17, glucose is 170, magnesium 2.0, and phosphorus 3.1. BUN and creatinine yesterday 34 and 1.36 respectively. Pathology report from the surgical specimen is pertinent for stage IIA T3 N0 M0 moderately differentiated adenocarcinoma of the colon. IMPRESSION: 1. Stage IIA T3 N0 M0 moderately differentiated adenocarcinoma of the colon. 2. Acute respiratory failure. 3. Postoperative day #4 status post laparotomy, extensive adhesiolysis, and total colectomy with ileostomy. 4. Acute congestive heart failure exacerbation. 5. Paroxysmal atrial fibrillation with rapid ventricular response. 6. Acute blood loss anemia, stable. PLAN: 1. Continue with gentle diuresis, monitoring renal function as well as hemodynamic parameters as endpoint. 2. Continue with full mechanical ventilator support and begin ventilatory wean as tolerated. 3. We will ask Oncology to evaluate the patient with regard to this new diagnosis of colon cancer. Total critical care time is 40 minutes. Job ID: [id number]
[2020-09-19] MEDS ORDERED: Albumin 25% 25 GM/100 ML BOT IVPB SCH (16:00)
--- NOTE | 2020-09-19 19:05 | CON ---
DATE OF CONSULTATION: REASON FOR CONSULT: Colon cancer. HISTORY OF PRESENT ILLNESS: Ms. Lai is a 74-year-old female who presented to the [facility] with abdominal pain and fatigue. She underwent abdominal pelvis CT which showed irregular mass involving the mid descending colon. She appeared to have a partial small-bowel obstruction. She was transferred to this facility and underwent exploratory laparotomy. She was noted to have perforated viscus with acute peritonitis, partial small-bowel obstruction. She was obstructed. She underwent a total colectomy with segmental small bowel resection and an end ileostomy. Her pathology returned invasive adenocarcinoma, moderately differentiated. The tumor size was 9 x 4.5 x 1 cm. It invaded the muscularis propria and focally into the adipose tissue making it a pT3, 0 of 17 lymph nodes were positive. All margins were negative for invasive carcinoma. She was a pT3 N0 MX colon cancer. The patient unfortunately has been in septic shock due to peritonitis and she is in the ICU on the ventilator. She is on dobutamine, amiodarone, and Lasix drips. She is sedated with Diprivan. History was obtained from review of medical records. PAST MEDICAL HISTORY: 1. Hypertension. 2. Diverticulitis. PAST SURGICAL HISTORY: Appendectomy, total hysterectomy, sigmoidectomy with end-colostomy followed by takedown. ALLERGIES: TO SULFA. CURRENT MEDICATIONS: 1. Amiodarone. 2. Lanoxin. 3. Dobutamine. 4. Fentanyl. 5. Fluconazole. 6. Lasix. 7. Zaroxolyn. 8. Protonix. 9. Zosyn. 10. Diprivan. FAMILY HISTORY: Unable to obtain. SOCIAL HISTORY: Apparently lives independently and has been a since November. No alcohol, tobacco, or illicit drug use. REVIEW OF SYSTEMS: Unable to obtain secondary to intubation and sedation. PHYSICAL EXAMINATION: VITAL SIGNS: Temperature 98.6, pulse is 123, respiratory rate is 17, BP is 134/87. She is 100% on 50% FiO2. GENERAL: Ill-appearing female, in no acute distress. HEENT: Normocephalic, atraumatic. NECK: Supple. CARDIOVASCULAR: Regular rate and rhythm. She is tachycardic. LUNGS: She has scattered rhonchi throughout. ET tube in place. ABDOMEN: Soft. She has a colostomy with brown stool. Midline incision with keith and a JABARI drain in her left lower quadrant. EXTREMITIES: 1+ edema in all extremities. NEUROLOGICAL: Unable to assess secondary to sedation. PERTINENT LABORATORY DATA AND X-RAYS: WBCs are 14.2, hemoglobin 8.2, hematocrit 26.5, platelets 26,000, 71% neutrophils, 20% bands, 8% lymphocytes. PT 17.1, INR is 1.4, PTT 35.8. Sodium 145, potassium 4, chloride 112, CO2 is 24, BUN 36, creatinine 1.17, calcium 8, bilirubin 3.4, AST 43, ALT is 24, alkaline phosphatase is 158. Serum total protein is 4.1, albumin 2.6, globulin 1.5. RADIOLOGY: Per HPI. ASSESSMENT: 1. Moderately-differentiated invasive adenocarcinoma of colon. 2. Septic shock secondary to peritonitis. DISCUSSION: Given patient's large tumor and adhesions, she maybe a candidate for chemotherapy. Obviously she has to recover from her acute illness. She is currently on the ventilator with pressure support. There is no family at bedside, so we will return once the patient has recovered from her septic shock. Case to be discussed with Dr. Chun. Thank you for the consult. Job ID: [id number]
[2020-09-19 20:18] LABS: Hemoglobin 9.2 g/dL (12.0-16.0); Mean Corpuscular HGB CONC 31.5 g/dL (32.0-36.0); Mean Corpuscular Hemoglobin 28.4 pg (27.0-31.0); Mean Corpuscular Volume 90.2 fL (78.0-98.0); RBC Distribution Width 16.1 % (11.5-14.5); Red Blood Cell (RBC) Count 3.25 mill/uL (4.20-5.40); White Blood Cell (WBC) Count 19.5 thou/uL (4.8-10.8)
[2020-09-19] MEDS: Digoxin 0.5 MG/2 ML AMP SLOW IVP SCH (20:18)
[2020-09-19] MEDS: Pantoprazole 40 MG VIAL IVP SCH (20:19)
[2020-09-19 20:40] LABS: Band 9 % (5-11); Hypochromia SLIGHT = 6-15 cells (100X) (0-5/hpf); Lymphocytes 12 % (21-51); MDiff Complete? YES; Monocytes 1 % (0-10); Neutrophil 78 % (42-75); Platelet Count 47 thou/uL (130-400); Platelet Morphology Comment Appears Decreased; Toxic Granulation SLIGHT; Vacuoles SLIGHT
[2020-09-19 20:41] LABS: Anion Gap 15 mmol/L (10-20); BUN (Urea Nitrogen) 32 mg/dL (9.8-20.1); Calc. Creatinine Clearance 27 mL/min (70-130); Calcium 8.2 mg/dL (7.8-10.44); Carbon Dioxide 26 mmol/L (23-31); Chloride 109 mmol/L (98-107); Glucose 141 mg/dL (83-110); Magnesium 1.9 mg/dL (1.6-2.6); Phosphorus 2.3 mg/dL (2.3-4.7); Sodium 146 mmol/L (136-145)
[2020-09-19] MEDS ORDERED: Magnesium 2 GM/50 ML 2 GM in Premix Bag 1 BAG IVPB SCH (21:15)
[2020-09-19] MEDS ORDERED: Potassium Phosphate 15 MMOL in Sodium Chloride 0.9% 250 ML 250 ML IVPB SCH (21:30)
[2020-09-20] MEDS: Acetaminophen 325 MG/10.15 ML UDCUP PO SCH ×4 (03:15→21:49)
[2020-09-20] MEDS: Digoxin 0.5 MG/2 ML AMP SLOW IVP SCH (05:13)
[2020-09-20 05:14] LABS: Anisocytosis SLIGHT = 6-15 cells (100X) (0-5/hpf); Band 36 % (5-11); Hemoglobin 9.2 g/dL (12.0-16.0); Lymphocytes 8 % (21-51); MDiff Complete? YES; Mean Corpuscular HGB CONC 30.9 g/dL (32.0-36.0); Mean Corpuscular Volume 90.3 fL (78.0-98.0); Mean Platelet Volume 10.2 fL (7.4-10.4); Monocytes 1 % (0-10); Neutrophil 55 % (42-75); Platelet Count 53 thou/uL (130-400); Platelet Morphology Comment Appears Decreased; RBC Distribution Width 16.1 % (11.5-14.5); Red Blood Cell (RBC) Count 3.29 mill/uL (4.20-5.40); White Blood Cell (WBC) Count 20.9 thou/uL (4.8-10.8)
[2020-09-20] MEDS: Piperacillin/Tazobactam 2.25 GM in Sodium Chloride 0.9% 100 ML IVPB SCH ×4 (05:14→23:46)
[2020-09-20 05:27] LABS: Anion Gap 13 mmol/L (10-20); BUN (Urea Nitrogen) 31 mg/dL (9.8-20.1); Calc. Creatinine Clearance 29 mL/min (70-130); Calcium 8.2 mg/dL (7.8-10.44); Carbon Dioxide 28 mmol/L (23-31); Chloride 107 mmol/L (98-107); Glucose 170 mg/dL (83-110); Magnesium 2.2 mg/dL (1.6-2.6); Potassium 3.8 mmol/L (3.5-5.1); Sodium 144 mmol/L (136-145)
[2020-09-20 08:24] LABS: Base Excess (BEa) 3.1 mEq/L (-2.0 to +3.0); CO2 Tension 38.2 mmHg (35.0-45.0); Calcium, Ionized (arterial) 1.15 mmol/L (1.12-1.30); Carboxyhemoglobin (COHb) 0.9 gm% (0.0-3.0); Hemoglobin (Hb) 9.7 g/dL (12.0-16.0); O2 Tension (PaO2), arterial 114.3 mmHg (> 70.0); Potassium - ABG Lab 3.79 mmol/L (3.70-5.30); pH, Arterial 7.47 (7.35-7.45)
[2020-09-20] MEDS ORDERED: Potassium Chloride 40 MEQ in Premix Bag 1 BAG IVPB SCH (08:45)
[2020-09-20 08:48] LABS: Digoxin 1.43 ng/mL (0.8-2.0)
[2020-09-20] MEDS: Metolazone 5 MG TAB PO SCH (08:54)
[2020-09-20 08:56] LABS: Puncture Site Arterial Line
[2020-09-20] MEDS: Fluconazole In NaCl,Iso-Osm 200 MG in Premix Bag 1 BAG IVPB SCH (09:01)
--- NOTE | 2020-09-20 09:08 | RAD ---
Chest AP view INDICATION: Intubation COMPARISON: Prior exam dated September 17, 2020 FINDINGS: Lungs: There is worsening bilateral lower lobe airspace disease. Cardiac silhouette: There is persistent mild cardiomegaly Pulmonary vasculature: There is persistent pulmonary vascular congestion Pleural spaces: There are enlarging bilateral pleural effusions. Upper abdomen: No abnormality seen. Osseous structures: Osseous structures are unchanged. Additional findings: ET tube, gastric catheter, feeding tube and left subclavian central venous cath eter are unchanged. No pneumothorax. IMPRESSION: Findings suspicious for worsening volume overload or CHF. There is worsening opacity within both lowe r lobes which may reflect atelectasis with layering pleural effusion. Continued follow-up is recommended.
[2020-09-20] MEDS ORDERED: Metoprolol Tartrate 5 MG/5 ML VIAL IVP SCH (12:30)
[2020-09-20] MEDS: Amiodarone 450 MG, Admixture Fee 1 EACH in Dextrose 5% in Water 250 ML IVPB SCH (14:59)
[2020-09-20] MEDS: Carvedilol 3.125 MG TAB PO SCH (17:10)
[2020-09-20] MEDS: Pantoprazole 40 MG VIAL IVP SCH (21:50)
[2020-09-21] MEDS: Furosemide 100 MG in Sodium Chloride 0.9% 100 ML IVPB SCH (02:51)
[2020-09-21] MEDS: Acetaminophen 325 MG/10.15 ML UDCUP PO SCH ×4 (02:51→21:01)
[2020-09-21 05:01] LABS: Band 39 % (5-11); Hemoglobin 9.3 g/dL (12.0-16.0); Hypochromia SLIGHT = 6-15 cells (100X) (0-5/hpf); Lymphocytes 3 % (21-51); MDiff Complete? YES; Mean Corpuscular HGB CONC 31.6 g/dL (32.0-36.0); Mean Corpuscular Hemoglobin 28.3 pg (27.0-31.0); Mean Corpuscular Volume 89.5 fL (78.0-98.0); Mean Platelet Volume 11.9 fL (7.4-10.4); Neutrophil 58 % (42-75); Platelet Count 100 thou/uL (130-400); Platelet Morphology Comment Appears Decreased; RBC Distribution Width 16.2 % (11.5-14.5); White Blood Cell (WBC) Count 20.6 thou/uL (4.8-10.8)
[2020-09-21 05:05] LABS: Anion Gap 13 mmol/L (10-20); BUN (Urea Nitrogen) 28 mg/dL (9.8-20.1); Calc. Creatinine Clearance 83 mL/min (70-130); Calcium 7.1 mg/dL (7.8-10.44); Carbon Dioxide 29 mmol/L (23-31); Chloride 100 mmol/L (98-107); Glucose 193 mg/dL (83-110); Magnesium 1.7 mg/dL (1.6-2.6); Phosphorus 1.8 mg/dL (2.3-4.7); Potassium 4.6 mmol/L (3.5-5.1); Sodium 137 mmol/L (136-145)
--- NOTE | 2020-09-21 05:22 | PRG ---
DATE OF SERVICE: 09/20/2020 SUBJECTIVE: Ms. Lai is a 74-year-old woman. She is postoperative day #5, status post exploratory laparotomy, extensive adhesiolysis, and total colectomy with ileostomy for what is probably going to be a stage IIA T3N0M0 moderately-differentiated adenocarcinoma of the colon. She remains on mechanical ventilator support. She is in acute congestive heart failure exacerbation. Currently, urinary output is responsive to diuresis. She remains on dobutamine at 2.5 mcg/kg per minute. OBJECTIVE: VITAL SIGNS: This morning includes blood pressure 133/81, pulse is 120 and irregular, respiratory rate is 18, maximum temperature in last 24 hours is 98.9 degrees Fahrenheit, oxygen saturation 100% on FiO2 of 35%, on mechanical ventilator support. HEENT: Pupils are equal, round, and reactive to light and accommodation. Bilateral scleral edema has resolved. She has no jugular venous distention noted. HEART: Reveals irregular rate and rhythm. LUNGS: Reveals bibasilar rhonchi. Breathing regular and nonlabored. ABDOMEN: Soft, nontender, and nondistended. Peritoneal Kamar-Quinn drain has returned 910 mL of ascites in the last 24 hours. Subcutaneous Kamar-Quinn drain returned 270 mL of serous fluid over the last 24 hours as well. Bowel sounds are present. Ileostomy is viable and functional with liquid stool and gas. EXTREMITIES: Reveal 2+ radial and pedal pulses bilaterally. No ankle edema is present. NEUROLOGIC: Reveals no focal deficits present. LABORATORY FINDINGS: Today includes a CBC with 20,900 white blood cells, hemoglobin and hematocrit are stable at 9.2 and 29.7 respectively, platelet count is 53,000 and improving. Metabolic profile; sodium 144, potassium 3.8, chloride is 107, bicarb is 28, BUN is 31, creatinine is 1.0, and this is in contrast to BUN and creatinine of 32 and 1.05 yesterday. Glucose is 170, magnesium 2.2, and phosphorus is 3.0. IMPRESSION: 1. Postoperative day #5, status post exploratory laparotomy, total colectomy with end ileostomy. 2. Acute respiratory failure. 3. Acute congestive heart failure exacerbation. 4. Acute blood loss anemia, stable. 5. Acute hypokalemia. 6. Acute paroxysmal atrial fibrillation with rapid ventricular response. The patient is on both amiodarone and digoxin. PLAN: 1. Correct abnormal electrolytes. 2. Continue with forced diuresis and monitor the patient for resolution of the acute congestive heart failure, this will be an endpoint. 3. Continue with enteral nutritional supplementation. We will increase tube feeds to goal. 4. Increase activity per Physical and Occupational Therapy. 5. Continue with full mechanical ventilator support and we will consider extubating the patient once she is out of congestive heart failure. Above findings and plan discussed with the patient and subsequently with her adult son, Mr. Eitan Lai, by telephone conversation. He indicated understanding of information provided. I have answered his questions. Total critical care time is 45 minutes. Job ID: [id number] MTDD
[2020-09-21] MEDS: Piperacillin/Tazobactam 2.25 GM in Sodium Chloride 0.9% 100 ML IVPB SCH ×4 (05:59→17:31)
[2020-09-21] MEDS ORDERED: Magnesium 2 GM/50 ML 2 GM in Premix Bag 1 BAG IVPB SCH (06:15)
[2020-09-21] MEDS ORDERED: Sodium Phosphate 30 MMOL in Sodium Chloride 0.9% 250 ML 250 ML IVPB SCH (06:30)
[2020-09-21] MEDS: Amiodarone 450 MG, Admixture Fee 1 EACH in Dextrose 5% in Water 250 ML IVPB SCH (06:45)
[2020-09-21] MEDS: Carvedilol 3.125 MG TAB PO SCH ×2 (08:25→16:35)
[2020-09-21] MEDS: Metolazone 5 MG TAB PO SCH (08:25)
[2020-09-21] MEDS: Fluconazole In NaCl,Iso-Osm 200 MG in Premix Bag 1 BAG IVPB SCH (08:26)
--- NOTE | 2020-09-21 08:50 | RAD ---
Exam: Chest one view HISTORY:Right lower lobe pneumonia. Comparison: 09/20/2020, 09/17/2020 FINDINGS: Lines and tubes: Redemonstration of a Dobbhoff feeding tube, nasogastric tube and endotracheal tube. Stable left-sided subclavian vascular catheter. Cardiac silhouette:Cardiomegaly. Aorta: Unremarkable Pulmonary vessels: Normal Costophrenic angles: Small bilateral pleural effusions. Degree of pleural fluid in the right hemithor ax has decreased. The degree of pleural fluid in left hemithorax has slightly progressed. LUNGS: Persistent bibasilar opacities. Degree of opacification in the lung bases has not significantl y changed. Pneumothorax: None Osseous abnormalities: None IMPRESSION: Persistent bibasilar pleural-parenchymal changes.
[2020-09-21] MEDS ORDERED: Digoxin 0.5 MG/2 ML AMP SLOW IVP SCH (09:00)
--- NOTE | 2020-09-21 14:29 | PRG ---
DATE OF SERVICE: 09/21/2020 SUBJECTIVE: The patient was seen this morning during rounds. She was intubated and comfortable with no signs of acute distress. Fentanyl drip was held and the patient was ultimately extubated by Dr. Carcamo and myself this morning. She is alert and oriented, following commands. OBJECTIVE: VITAL SIGNS: Temperature 98.1, pulse 72, respirations 24, oxygen saturation 97% on the ventilator, blood pressure 127/70. GENERAL: Well-appearing elderly female, sitting up in bed, intubated, awake and alert with no signs of acute distress. PULMONARY: Equal chest rise and fall. Clear breath sounds in bilateral upper lung downing and diminished at the bilateral lower lung downing. No signs of acute respiratory distress. CARDIAC: Regular rate and rhythm. GI: Abdomen is soft, appropriately tender to palpation, nondistended. Midline abdominal wound is clean, dry, and intact. Ostomy is well perfused with output. EXTREMITIES: 2+ pulses in all extremities. Moderate extremity swelling throughout. Gross motor and sensation intact. NEUROLOGIC: GCS is eyes 4, verbal 1T, and motor 6. LABORATORY FINDINGS: White count 20.6, hemoglobin 9.3, hematocrit 25.6, platelets 100. Sodium 137, potassium 4.6, chloride 100, bicarb 26, BUN 28, creatinine 0.77, glucose 193, phosphorus 1.9, magnesium 1.6. DIAGNOSTIC FINDINGS: Chest x-ray completed this morning demonstrates persistent bibasilar pleural-parenchymal changes. ASSESSMENT: 1. Postoperative day 6 status post exploratory laparotomy, extensive adhesiolysis total colectomy with segmental small-bowel resection and end ileostomy due to perforated viscus caused by colonic mass. 2. Adenocarcinoma identified on colon mass. 3. Acute kidney injury, resolved. 4. Atrial fibrillation with rapid ventricular response, resolved. 5. Thrombocytopenia, improving. 6. Acute hypophosphatemia. 7. History of diverticulitis, hypertension, colostomy takedown, and partial bowel resection. PLAN: The patient was extubated today and discontinue all IV fluids. Continue tube feeds at goal. Discontinue amiodarone. Continue digoxin, Zaroxolyn, Entresto, and carvedilol. Discontinue Lasix drip and change to Lasix 40 mg IV push daily. Continue to monitor I's and O's. The patient remains awake and alert and maintaining her airway and swallowing. We will advance her to a clear liquid diet this afternoon. The patient has been off dobutamine for the past 24 hours. This patient was seen and examined by Dr. Carcamo and myself this morning during rounds. Job ID: [id number]
[2020-09-21] MEDS: Pantoprazole 40 MG VIAL IVP SCH (21:01)
[2020-09-21] MEDS: Amiodarone 200 MG TAB PO SCH (21:02)
[2020-09-22] MEDS: Piperacillin/Tazobactam 2.25 GM in Sodium Chloride 0.9% 100 ML IVPB SCH ×4 (00:41→17:34)
[2020-09-22] MEDS: Acetaminophen 325 MG/10.15 ML UDCUP PO SCH ×4 (03:39→20:24)
[2020-09-22 05:23] LABS: Anion Gap 11 mmol/L (10-20); BUN (Urea Nitrogen) 26 mg/dL (9.8-20.1); Carbon Dioxide 32 mmol/L (23-31); Chloride 99 mmol/L (98-107); Potassium 3.9 mmol/L (3.5-5.1); Sodium 138 mmol/L (136-145)
[2020-09-22 05:24] LABS: Calc. Creatinine Clearance 85 mL/min (70-130); Calcium 8.6 mg/dL (7.8-10.44); Glucose 187 mg/dL (83-110); Magnesium 1.8 mg/dL (1.6-2.6); Phosphorus 2.6 mg/dL (2.3-4.7)
[2020-09-22 05:27] LABS: Band 18 % (5-11); Eosinophils 1 % (0-10); Hemoglobin 10.1 g/dL (12.0-16.0); Lymphocytes 2 % (21-51); MDiff Complete? YES; Mean Corpuscular HGB CONC 30.6 g/dL (32.0-36.0); Mean Corpuscular Hemoglobin 27.6 pg (27.0-31.0); Mean Corpuscular Volume 90.1 fL (78.0-98.0); Mean Platelet Volume 11.2 fL (7.4-10.4); Neutrophil 79 % (42-75); Platelet Count 159 thou/uL (130-400); Platelet Morphology Comment Appears Adequate; RBC Distribution Width 16.5 % (11.5-14.5); Red Blood Cell (RBC) Count 3.68 mill/uL (4.20-5.40); White Blood Cell (WBC) Count 23.1 thou/uL (4.8-10.8)
[2020-09-22] MEDS: Carvedilol 3.125 MG TAB PO SCH ×2 (08:10→16:21)
[2020-09-22] MEDS: Amiodarone 200 MG TAB PO SCH ×2 (08:10→20:24)
[2020-09-22] MEDS: Furosemide 40 MG/4 ML VIAL SLOW IVP SCH (08:11)
[2020-09-22] MEDS: Fluconazole In NaCl,Iso-Osm 200 MG in Premix Bag 1 BAG IVPB SCH (08:11)
--- NOTE | 2020-09-22 08:14 | RAD ---
Chest AP view INDICATION: Right lower lobe status post extubation evaluate COMPARISON: Prior exam dated September 21, 2020 FINDINGS: Lungs: There is worsening hazy airspace disease of the left perihilar region, left lower lobe and ri ght lung base Cardiac silhouette: There is worsening cardiomegaly Pulmonary vasculature: There is worsening pulmonary vascular congestion and central edema. Pleural spaces: Worsening moderate left and small right pleural effusions. No pneumothorax. Upper abdomen: Feeding tube is again seen projecting below the left hemidiaphragm and beyond the fie ld-of-view. Osseous structures: There is scattered degenerative and osteoarthritic change present. Additional findings: Left subclavian central venous catheter is unchanged. The patient has been extu bated. IMPRESSION: 1. Worsening CHF. 2. Interval extubation. 3. No pneumothorax
[2020-09-22] MEDS ORDERED: Magnesium Sulfate 2 GM in Sodium Chloride 0.9% 250 ML 250 ML IVPB SCH (08:30)
[2020-09-22] MEDS ORDERED: Magnesium 2 GM/50 ML 2 GM in Premix Bag 1 BAG IVPB SCH (08:45)
--- NOTE | 2020-09-22 15:50 | ULT ---
BILATERAL LOWER EXTREMITY VENOUS DOPPLER EVALUATION PROVIDED CLINICAL HISTORY: History of bilateral lower extremity edema TECHNIQUE: Grayscale, color doppler and spectral doppler images were obtained of the common femoral , femoral, profunda femoral, popliteal and posterior tibial veins of both lower extremities. FINDINGS: There is partially occlusive thrombus seen within the right common femoral vein, proximal greater sap henous vein and proximal superficial femoral vein. There is normal compression, flow and augmentation seen within the deep venous structures of the left lower extremity. IMPRESSION: Partially occlusive thrombus within the right common femoral vein, proximal greater saphenous vein an d proximal right superficial femoral vein. No evidence of DVT in the left lower extremity.
--- NOTE | 2020-09-22 15:55 | PRG ---
DATE OF SERVICE: 09/22/2020 SUBJECTIVE: The patient remains in the critical care unit. She is status post exploratory laparotomy for perforated viscus. She was extubated yesterday. She did well overnight. She, unfortunately, did not pass her swallow test by Speech, so they will continue to evaluate her. Otherwise, she is tolerating her tube feeds, and her pain is controlled. She is planned on working with Therapy to get out of bed today. The patient's ileostomy is functioning properly. Her JABARI drains put out 30 mL so far today and 160 mL. OBJECTIVE: VITAL SIGNS: Temperature is 98.5, heart rate 105, blood pressure 110/80, respirations 24, oxygen saturation 96% on 2 L via nasal cannula. GENERAL: The patient is resting comfortably in bed. She is awake, conversant appropriate. HEENT: Unremarkable. LUNGS: Scattered wheezes bilaterally. HEART: Regular rate and rhythm. ABDOMEN: Soft without gross peritoneal signs. Her ostomy shows stool and gas in the bag. Her midline dressing is clean, dry, and intact. EXTREMITIES: Neurovascularly intact x4. LABORATORY FINDINGS: White blood cell count 23.1, hemoglobin 10.1, hematocrit 33.1, platelets 159. Sodium 138, potassium 3.9, chloride 99, CO2 of 32, BUN 26, creatinine 0.69, glucose 187, magnesium 1.8, and phosphorus 2.6. RADIOGRAPHIC STUDIES: AP chest x-ray shows worsening CHF, interval extubation, and no pneumothorax. ASSESSMENT AND PLAN: 1. Status post exploratory laparotomy, extensive adhesiolysis with total colectomy with segmental small bowel resection and end-ileostomy due to perforated viscus caused by colonic mass, postop day #7. 2. Adenocarcinoma, pending plan by Oncology. 3. Acute kidney injury, resolved. 4. Atrial fibrillation with rapid ventricular response, resolved. 5. Thrombocytopenia, resolved. 6. History of diverticulitis, hypertension, colostomy takedown, and partial bowel resection. PLAN: Continue supportive care. The patient has received 40 mg of Lasix this morning. We will repeat that dose this evening and continue to follow her CHF. The patient will have labs in the morning. Repeat chest x-ray. Repeat evaluation by Speech and continue tube feeds. This patient was discussed with Dr. Carcamo this morning. We will get bilateral lower extremity venograms to evaluate for DVT and begin chemical VTE prophylaxis today. Job ID: [id number]
[2020-09-22] MEDS ORDERED: Enoxaparin Sodium 40 MG/0.4 ML SYRINGE SC SCH (16:00)
[2020-09-22] MEDS ORDERED: Metolazone 2.5 MG TAB PO SCH (17:45)
[2020-09-22] MEDS: Pantoprazole 40 MG VIAL IVP SCH (20:24)
[2020-09-22] MEDS ORDERED: Furosemide 40 MG/4 ML VIAL SLOW IVP SCH (21:00)
[2020-09-23] MEDS: Piperacillin/Tazobactam 2.25 GM in Sodium Chloride 0.9% 100 ML IVPB SCH ×4 (00:04→17:04)
[2020-09-23] MEDS: Acetaminophen 325 MG/10.15 ML UDCUP PO SCH ×4 (04:21→20:56)
[2020-09-23 06:07] LABS: Anion Gap 13 mmol/L (10-20); BUN (Urea Nitrogen) 27 mg/dL (9.8-20.1); Calc. Creatinine Clearance 90 mL/min (70-130); Calcium 8.6 mg/dL (7.8-10.44); Carbon Dioxide 31 mmol/L (23-31); Glucose 156 mg/dL (83-110); Magnesium 1.9 mg/dL (1.6-2.6); Phosphorus 2.8 mg/dL (2.3-4.7); Potassium 3.8 mmol/L (3.5-5.1); Sodium 138 mmol/L (136-145)
[2020-09-23 06:09] LABS: Chloride 98 mmol/L (98-107)
[2020-09-23 06:13] LABS: Band 13 % (5-11); Hypochromia SLIGHT = 6-15 cells (100X) (0-5/hpf); Lymphocytes 6 % (21-51); MDiff Complete? YES; Mean Corpuscular HGB CONC 30.1 g/dL (32.0-36.0); Mean Corpuscular Hemoglobin 27.1 pg (27.0-31.0); Mean Corpuscular Volume 90.1 fL (78.0-98.0); Mean Platelet Volume 10.3 fL (7.4-10.4); Monocytes 5 % (0-10); Neutrophil 76 % (42-75); Platelet Count 207 thou/uL (130-400); Platelet Morphology Comment Appears Adequate; RBC Distribution Width 16.5 % (11.5-14.5); Red Blood Cell (RBC) Count 3.32 mill/uL (4.20-5.40); White Blood Cell (WBC) Count 21.9 thou/uL (4.8-10.8)
[2020-09-23] MEDS: Carvedilol 3.125 MG TAB PO SCH ×2 (07:55→16:23)
[2020-09-23] MEDS: Spironolactone 25 MG TAB PO SCH (07:55)
[2020-09-23] MEDS: Amiodarone 200 MG TAB PO SCH ×2 (07:55→20:56)
[2020-09-23] MEDS: Furosemide 40 MG/4 ML VIAL SLOW IVP SCH (07:56)
[2020-09-23] MEDS ORDERED: Sodium Phosphate 15 MMOL in Sodium Chloride 0.9% 250 ML 250 ML IVPB SCH (08:30)
[2020-09-23] MEDS ORDERED: Magnesium Sulfate 2 GM in Sodium Chloride 0.9% 250 ML 250 ML IVPB SCH (08:30)
[2020-09-23] MEDS: Fluconazole In NaCl,Iso-Osm 200 MG in Premix Bag 1 BAG IVPB SCH (08:59)
[2020-09-23] MEDS ORDERED: Enoxaparin Sodium 30 MG/0.3 ML SYRINGE SC SCH (09:00)
--- NOTE | 2020-09-23 12:25 | PRG ---
DATE OF SERVICE: 09/23/2020 SUBJECTIVE: Ms. Lai is extubated. She is off Dobutrex. She appears weak. No specific complaints. OBJECTIVE: VITAL SIGNS: Blood pressure 119/59, pulse 85, respirations 20. LUNGS: Minimal rhonchi and rales bilaterally. HEART: Regular rate and rhythm. ABDOMEN: Soft, nontender, nondistended. EXTREMITIES: No edema. PERTINENT LABORATORY DATA: Include hemoglobin 9.0. Creatinine 0.64. IMPRESSION: 1. Diastolic dysfunction. 2. Mild cardiomyopathy. 3. Recent colectomy. 4. DVT RECOMMENDATIONS: Ms. Lai is currently doing well. Blood pressure and heart rate are marginal in the upper 90s to 110s. The patient did develop atrial fibrillation, has been on p.o. amiodarone therapy. We will reduce . Continue carvedilol at the current dose. The patient is also started on Entresto, which may be off-label due to LVEF 45% to 50%. We will continue to monitor, but consider stopping Entresto. Also recommend full dose ACT with lovenox if ok with GS. When near DC, recommend eliquis. There is no contradiction to ACT unless surgery feels she is at high risk for bleeding on lovenox If high risk, recommend IVC filter Job ID: [id number] [facility]
--- NOTE | 2020-09-23 13:42 | PRG ---
DATE OF SERVICE: 09/23/2020 SUBJECTIVE: The patient remains in the critical care unit. She is status post exploratory laparotomy for perforated viscus. She did well overnight. She is tolerating her tube feeds and her pain is controlled. She is scheduled to get out of bed with therapy today and be re-evaluated by Speech Therapy. PHYSICAL EXAMINATION: VITAL SIGNS: Temperature 98.4, heart rate 81, blood pressure 105/57, respirations 22, oxygen saturation 100% on 2 L via nasal cannula. GENERAL: The patient is resting comfortably in bed. She is sitting up. She is awake, conversant, appropriate, and appears to be at her baseline. HEENT: Unremarkable. Dobhoff tube is in place. LUNGS: Have scant wheezes bilaterally, this is improved from my previous exam. HEART: Regular rate and rhythm. ABDOMEN: Soft, minimally tender with no gross peritoneal signs. Her ostomy bag shows stool and gas. EXTREMITIES: Neurovascularly intact x4. LABORATORY FINDINGS: White blood cell count 21.9, hemoglobin 9.0, hematocrit 29.9, platelets 207. Sodium 138, potassium 3.8, chloride 98, CO2 of 31, BUN 27, creatinine 0.64, glucose 156, magnesium 1.9, phosphorus 2.8. There are no radiographs to review this morning. ASSESSMENT AND PLAN: 1. Status post exploratory laparotomy, extensive adhesiolysis with total colectomy with segmental small bowel resection and end ileostomy due to perforated viscus caused by colonic mass, postoperative day 8. 2. Adenocarcinoma, pending plan by Oncology. 3. Acute kidney injury, resolved. 4. Atrial fibrillation with rapid ventricular response, resolved. 5. Thrombocytopenia, resolved. 6. History of diverticulitis, hypertension, colostomy takedown, and partial bowel resection. Plan will be to continue supportive care, encourage out of bed with physical therapy, re-evaluation by Speech. Continue tube feeds and we will move the patient to the [facility] today. The evaluation and examination were discussed with Dr. Carcamo this morning. Job ID: [id number]
[2020-09-23] MEDS: Apixaban 5 MG TAB PO SCH (20:56)
[2020-09-23] MEDS: Pantoprazole 40 MG VIAL IVP SCH (20:56)
[2020-09-24] MEDS: Piperacillin/Tazobactam 2.25 GM in Sodium Chloride 0.9% 100 ML IVPB SCH ×4 (00:35→17:43)
[2020-09-24] MEDS: Acetaminophen 325 MG/10.15 ML UDCUP PO SCH ×5 (04:03→21:43)
[2020-09-24 04:24] LABS: #Eosinphils 0.1 thou/uL (0.0-0.7); #Lymphocytes 1.5 thou/uL (1.20-3.40); #Monocytes 0.4 thou/uL (0.11-0.59); #Neutrophils 19.5 thou/uL (1.40-6.50); %Basophils 0.1 % (0.0-1.0); %Eosinophils 0.3 % (0.0-10.0); %Lymphocytes 7.1 % (21.0-51.0); %Monocytes 1.6 % (0.0-10.0); %Neutrophils 90.9 % (42.0-75.0); Hemoglobin 8.3 g/dL (12.0-16.0); Mean Corpuscular HGB CONC 30.5 g/dL (32.0-36.0); Mean Corpuscular Hemoglobin 27.7 pg (27.0-31.0); Mean Corpuscular Volume 90.7 fL (78.0-98.0); Mean Platelet Volume 9.7 fL (7.4-10.4); Platelet Count 239 thou/uL (130-400); RBC Distribution Width 16.3 % (11.5-14.5); Red Blood Cell (RBC) Count 2.99 mill/uL (4.20-5.40); White Blood Cell (WBC) Count 21.5 thou/uL (4.8-10.8)
[2020-09-24 04:47] LABS: Anion Gap 10 mmol/L (10-20); BUN (Urea Nitrogen) 24 mg/dL (9.8-20.1); Calc. Creatinine Clearance 92 mL/min (70-130); Calcium 8.9 mg/dL (7.8-10.44); Carbon Dioxide 34 mmol/L (23-31); Chloride 100 mmol/L (98-107); Glucose 165 mg/dL (83-110); Phosphorus 2.8 mg/dL (2.3-4.7); Potassium 3.6 mmol/L (3.5-5.1); Sodium 140 mmol/L (136-145)
[2020-09-24] MEDS: Fluconazole In NaCl,Iso-Osm 200 MG in Premix Bag 1 BAG IVPB SCH (08:21)
[2020-09-24] MEDS: Carvedilol 3.125 MG TAB PO SCH (08:22)
[2020-09-24] MEDS: Apixaban 5 MG TAB PO SCH ×2 (08:22→21:43)
[2020-09-24] MEDS: Amiodarone 200 MG TAB PO SCH (08:22)
[2020-09-24] MEDS: Spironolactone 25 MG TAB PO SCH (08:22)
[2020-09-24] MEDS: Furosemide 40 MG/4 ML VIAL SLOW IVP SCH (08:22)
--- NOTE | 2020-09-24 16:10 | CON ---
DATE OF CONSULTATION: 09/24/2020 HISTORY OF PRESENT ILLNESS: Ms. Lai has no current complaints. She has been transferred out of the ICU to the intermediate care unit. She appears to be in sinus rhythm and has since 09/20. PHYSICAL EXAMINATION: VITAL SIGNS: Blood pressure 106/57, pulse 78, temperature afebrile. LUNGS: Clear to auscultation. HEART: Regular rate and rhythm. ABDOMEN: Decreased bowel sounds, but present. EXTREMITIES: 1+ pitting edema. PERTINENT LABORATORY DATA: Hemoglobin 8.3, hematocrit 27.1, white blood cell count 21.5. IMPRESSION: 1. Atrial fibrillation, now sinus rhythm. 2. Diastolic dysfunction. 3. Colon mass status post colectomy. 4. Deep venous thrombosis. RECOMMENDATIONS: 1. Ms. Lai is started on anticoagulation therapy and would continue. 2. Decrease amiodarone to 400 mg p.o. q.a.m. x1 month only. 3. Discontinue Entresto (no indication for LVEF 45% to 50%). 4. Discontinue carvedilol in place of bisoprolol, which is her outpatient medication. Otherwise, I have no further recommendations. Plan is to follow up Ms. Lai in the next several weeks as an outpatient. Please re-consult if needed. Job ID: [id number]
--- NOTE | 2020-09-24 16:37 | PDOC.MOPN ---
Interval History: Patient awake, out of the ICU - Vital Signs Vital Signs: Vital Signs (12 hours) Temp Pulse Resp Pulse Ox 09/24/20 15:00 97.7 F 09/24/20 11:09 97.8 F 09/24/20 08:00 100 09/24/20 07:24 97.6 F 09/24/20 06:54 100 09/24/20 06:52 78 23 H 100 Weight Admit Weight 170 lb 10.3 oz Weight 168 lb Most Recent Monitor Data Heart Rate from ECG 76 NIBP 111/55 NIBP BP-Mean 73 Respiration from ECG 19 SpO2 100 - Physical Exam General: Alert Lungs: Other (rhonchi) Cardiovascular: Regular rate Abdomen: Other Neurological: Normal speech - Labs Result Diagrams: 09/24/20 03:57 09/24/20 03:57 Lab results: Laboratory Results - last 24 hr 09/24/20 03:57: WBC 21.5 H, RBC 2.99 L, Hgb 8.3 L, Hct 27.1 L, MCV 90.7, MCH 27.7, MCHC 30.5 L, RDW 16.3 H, Plt Count 239, MPV 9.7, Neutrophils % 90.9 H, Lymphocytes % 7.1 L, Monocytes % 1.6, Eosinophils % 0.3, Basophils % 0.1, Neutrophils # 19.5 H, Lymphocytes # 1.5, Monocytes # 0.4, Eosinophils # 0.1, Basophils # 0.0 09/24/20 03:57: Sodium 140, Potassium 3.6, Chloride 100, Carbon Dioxide 34 H, Anion Gap 10, BUN 24 H, Creatinine 0.63, Estimated GFR (MDRD) Greater than 90, Glucose 165 H, Calcium 8.9, Phosphorus 2.8, Magnesium 2.0 Status: lab reviewed by me A/P - Problem (1) Colon adenocarcinoma Current Visit: Yes Code(s): C18.9 - MALIGNANT NEOPLASM OF COLON, UNSPECIFIED Status: Acute (2) Perforated bowel Current Visit: Yes Code(s): K63.1 - PERFORATION OF INTESTINE (NONTRAUMATIC) Status: Acute - Plan Plan: 1. Patient appears to have Stage II colon cancer with bowel perf 2. She may benefit from chemotherapy once she recovers. 3. Discussed with patient, she will follow-up in our clinic in a couple of weeks to discuss further.
--- NOTE | 2020-09-24 18:00 | PRG ---
DATE OF SERVICE: 09/24/2020 SUBJECTIVE: Ms. Lai is a 74-year-old woman who is postoperative day #9 status post exploratory laparotomy, completion total colectomy with end ileostomy. The patient developed postoperative acute congestive heart failure and now resolved atrial fibrillation. This morning, she is awake and alert. She tolerates tube feeds at goal. Urinary output remains adequate for this patient's age and weight. OBJECTIVE: VITAL SIGNS: Today include blood pressure 119/62, pulse 85, respiratory rate is 21, maximum temperature in the last 24 hours 98.2 degrees Fahrenheit, and oxygen saturation 100% on 2 L by nasal cannula oxygen. HEENT: Pupils equally round and reactive to light and accommodation. NECK: She has no jugular venous distention noted. HEART: Regular rate and rhythm. No murmurs or gallops auscultated. LUNGS: Clear to auscultation bilaterally. Her breathing is regular and nonlabored. ABDOMEN: Soft, nontender, and nondistended. Her ileostomy is viable and productive of stool and gas. [place] were removed; however, the wound immediately opened as there was no healing in the wound itself. There is no gross purulence down to the fascia, which is intact. Subcutaneous edema is, however, noted. NEUROLOGIC: No focal deficits present. LABORATORY FINDINGS: Today include a CBC with 21,500 white blood cells, hemoglobin and hematocrit 8.3 and 27.1 respectively, and platelet count is 239,000. Metabolic profile: Sodium 140, potassium 3.6, chloride is 100, bicarb is 34, BUN is 24, creatinine 0.63, and glucose is 165. Magnesium 2.0. Phosphorus is 2.8. IMPRESSION: 1. Postinjury day #9 status post exploratory laparotomy with total colectomy with end ileostomy. 2. Stage IIA M0 N0 moderately differentiated adenocarcinoma of the colon. 3. Resolved acute atrial fibrillation with rapid ventricular response. 4. Resolving acute congestive heart failure. 5. Acute hypokalemia. 6. Acute hypophosphatemia. 7. Chronic malnutrition and poor wound healing. PLAN: 1. Correct abnormal electrolytes. 2. We will ask wound care nursing to place a wound VAC in the midline incisional wound. 3. Increase activity per Physical and Occupational Therapy. 4. Ask speech and Language pathologist to evaluate the patient for swallow function, at which time oral nutritional intake could be advanced as recommended. 5. The patient will ultimately be transferred to inpatient rehabilitation versus prison facility upon discharge from this hospitalization. Above findings and plan discussed with the patient who indicates understanding information provided. I have answered her questions. Job ID: [id number]
[2020-09-24] MEDS: Pantoprazole 40 MG VIAL IVP SCH (21:43)
[2020-09-25] MEDS: Piperacillin/Tazobactam 2.25 GM in Sodium Chloride 0.9% 100 ML IVPB SCH ×5 (01:26→23:07)
[2020-09-25] MEDS: Acetaminophen 325 MG/10.15 ML UDCUP PO SCH ×4 (01:26→22:04)
[2020-09-25 05:15] LABS: #Eosinphils 0.1 thou/uL (0.0-0.7); #Lymphocytes 1.5 thou/uL (1.20-3.40); #Monocytes 0.4 thou/uL (0.11-0.59); #Neutrophils 16.3 thou/uL (1.40-6.50); %Basophils 0.2 % (0.0-1.0); %Eosinophils 0.4 % (0.0-10.0); %Lymphocytes 8.1 % (21.0-51.0); %Monocytes 2.1 % (0.0-10.0); %Neutrophils 89.1 % (42.0-75.0); Hemoglobin 7.5 g/dL (12.0-16.0); Mean Corpuscular HGB CONC 30.4 g/dL (32.0-36.0); Mean Corpuscular Hemoglobin 27.7 pg (27.0-31.0); Mean Corpuscular Volume 91.2 fL (78.0-98.0); Platelet Count 239 thou/uL (130-400); RBC Distribution Width 16.2 % (11.5-14.5); White Blood Cell (WBC) Count 18.2 thou/uL (4.8-10.8)
[2020-09-25 05:40] LABS: Anion Gap 12 mmol/L (10-20); BUN (Urea Nitrogen) 23 mg/dL (9.8-20.1); Calc. Creatinine Clearance 99 mL/min (70-130); Calcium 8.9 mg/dL (7.8-10.44); Carbon Dioxide 33 mmol/L (23-31); Chloride 100 mmol/L (98-107); Glucose 147 mg/dL (83-110); Magnesium 1.8 mg/dL (1.6-2.6); Phosphorus 2.8 mg/dL (2.3-4.7); Potassium 3.8 mmol/L (3.5-5.1); Sodium 141 mmol/L (136-145)
[2020-09-25] MEDS: Apixaban 5 MG TAB PO SCH ×2 (09:56→22:05)
[2020-09-25] MEDS: Spironolactone 25 MG TAB PO SCH (09:57)
[2020-09-25] MEDS: Amiodarone 200 MG TAB PO SCH (09:59)
[2020-09-25] MEDS: Metamucil PACK PER TUBE SCH (09:59)
[2020-09-25] MEDS: Bisoprolol Fumarate 5 MG TAB PO SCH (09:59)
[2020-09-25] MEDS: Furosemide 40 MG/4 ML VIAL SLOW IVP SCH (09:59)
[2020-09-25] MEDS: Fluconazole In NaCl,Iso-Osm 200 MG in Premix Bag 1 BAG IVPB SCH (10:00)
[2020-09-25 11:11] LABS: Actual Bicarbonate (HCO3a) 17.5 mEq/L (22-28); Analyzer IN Cardio OR; Base Excess (BEa) -9.3 mEq/L (-2.0 to +3.0); Calcium, Ionized (arterial) 1.28 mmol/L (1.12-1.30); Carboxyhemoglobin (COHb) 0.9 gm% (0.0-3.0); Hemoglobin (Hb) 7.9 g/dL (12.0-16.0); O2 Tension (PaO2), arterial 229.5 mmHg (> 70.0)
[2020-09-25 11:21] LABS: Actual Bicarbonate (HCO3a) 20.5 mEq/L (22-28); Analyzer IN Cardio OR; Base Excess (BEa) -6.1 mEq/L (-2.0 to +3.0); Calcium, Ionized (arterial) 1.21 mmol/L (1.12-1.30); Carboxyhemoglobin (COHb) 1.4 gm% (0.0-3.0); Hemoglobin (Hb) 7.8 g/dL (12.0-16.0); O2 Tension (PaO2), arterial 177.1 mmHg (> 70.0); pH, Arterial 7.27 (7.35-7.45)
[2020-09-25 11:22] LABS: Actual Bicarbonate (HCO3a) 21.1 mEq/L (22-28); Analyzer IN Cardio OR; Base Excess (BEa) -5.4 mEq/L (-2.0 to +3.0); CO2 Tension 45.4 mmHg (35.0-45.0); Calcium, Ionized (arterial) 1.16 mmol/L (1.12-1.30); Carboxyhemoglobin (COHb) 0.4 gm% (0.0-3.0); Hemoglobin (Hb) 9.8 g/dL (12.0-16.0); O2 Tension (PaO2), arterial 197.9 mmHg (> 70.0); Potassium - ABG Lab 4.17 mmol/L (3.70-5.30); pH, Arterial 7.29 (7.35-7.45)
[2020-09-25 11:22] LABS: Actual Bicarbonate (HCO3a) 20.3 mEq/L (22-28); Analyzer IN Cardio OR; Base Excess (BEa) -6.4 mEq/L (-2.0 to +3.0); CO2 Tension 46.4 mmHg (35.0-45.0); Calcium, Ionized (arterial) 1.17 mmol/L (1.12-1.30); Carboxyhemoglobin (COHb) 1.1 gm% (0.0-3.0); Hemoglobin (Hb) 8.1 g/dL (12.0-16.0); O2 Tension (PaO2), arterial 158.9 mmHg (> 70.0); Potassium - ABG Lab 4.15 mmol/L (3.70-5.30); pH, Arterial 7.26 (7.35-7.45)
[2020-09-25 12:12] LABS: Puncture Site Arterial Line
[2020-09-25 12:12] LABS: Puncture Site Arterial Line; pH, Arterial 7.24 (7.35-7.45)
[2020-09-25 12:13] LABS: Puncture Site Arterial Line
[2020-09-25 12:13] LABS: Puncture Site Arterial Line
--- NOTE | 2020-09-25 17:36 | EKG ---
Test Reason : Blood Pressure : / mmHG Vent. Rate : 090 BPM Atrial Rate : 090 BPM P-R Int : 140 ms QRS Dur : 086 ms QT Int : 482 ms P-R-T Axes : 037 -23 039 degrees QTc Int : 589 ms Normal sinus rhythm Minimal voltage criteria for LVH, may be normal variant Cannot rule out Anterior infarct , age undetermined Prolonged QT Abnormal ECG No previous ECGs available Confirmed by Harley MACK ([id number]) on 09/25/2020 5:35:45 PM Referred By: CHELSEA Confirmed By:Harley MACK
--- NOTE | 2020-09-25 19:04 | PRG ---
DATE OF SERVICE: 09/25/2020 SUBJECTIVE: Ms. Lai is a 74-year-old woman. She is postoperative day #10 status post exploratory laparotomy, total colectomy with end ileostomy. The surgery was for stage IIA M0 N0 moderately differentiated adenocarcinoma of the colon. The patient developed postoperative acute congestive heart failure exacerbation, which is resolving. Atrial fibrillation with rapid ventricular response has resolved. The patient is awake and alert this morning. She reports adequate pain control. Urinary output is adequate for this patient's age and weight. She is tolerating tube feeds at goal. She is intolerant of oral intake due to this acute dysphagia. She reports some odynophagia due to multiple ulcers. OBJECTIVE: VITAL SIGNS: This morning on evaluation include blood pressure 119/61, pulse 86, respiratory rate 23, maximum temperature in the last 24 hours is 98.6 degrees Fahrenheit, oxygen saturation 100% on FiO2 of 2 L by nasal cannula oxygen. HEENT: Reveals normocephalic and atraumatic. Pupils are equal, round, and reactive to light and accommodation. She has no jugular venous distention noted. HEART: Reveals regular rate and rhythm. LUNGS: Clear to auscultation bilaterally. Her breathing is regular and nonlabored. ABDOMEN: Soft, nontender, and nondistended. Ileostomy is viable and productive of liquid stool and gas. NEUROLOGIC: Reveals no focal deficits present. LABORATORY FINDINGS: Today include a CBC with 18,200 white blood cells, hemoglobin and hematocrit 7.5 and 24.7 respectively. Platelet count is 239,000. Metabolic profile; sodium 141, potassium 3.8, chloride is 100, bicarb is 33, BUN is 23, creatinine is 0.58, glucose is 147, magnesium is 1.8, and phosphorus is 2.8. IMPRESSIONS: 1. Postoperative day #10 status post exploratory laparotomy and right hemicolectomy with permanent ileostomy. 2. Acute congestive heart failure exacerbation, resolving. 3. Acute hypokalemia. 4. Acute hypomagnesemia. 5. Acute hypophosphatemia. 6. Acute blood loss anemia, stable. 7. Recently diagnosed stage IIA M0 N0 moderately differentiated carcinoma of the colon. PLAN: 1. Correct abnormal electrolytes. 2. Increase activity per Physical and Occupational Therapy. 3. The patient is hemodynamically stable for transfer to general surgical floor. 4. She has been followed by Oncology. We hope to transfer the patient to a [place] [facility] facility versus inpatient rehabilitation upon discharge. Job ID: [id number]
[2020-09-25] MEDS: Pantoprazole 40 MG VIAL IVP SCH (22:05)
--- NOTE | 2020-09-26 04:10 | PRG ---
DATE OF SERVICE: 09/25/2020 SUBJECTIVE: Patient was seen this evening during rounds. She was sitting up in bed, awake and alert with no signs of acute distress. She reported her pain was well controlled and she is tolerating her tube feeds just reported that she was feeling a little bit warm. Her blankets were readjusted in the room and the patient reports she will ask for a fan if she does not cool off. OBJECTIVE: VITAL SIGNS: Temperature 98.3, pulse 61, respirations 18, oxygen saturation 99% on 2 L nasal cannula, blood pressure 102/62. GENERAL: Well-appearing elderly female, sitting up in bed with no signs of acute distress. ASSESSMENT: 1. Postop day 10 status post exploratory laparotomy, extensive adhesional lysis, total colectomy with segmental small-bowel resection and end colostomy due to perforated viscus and colonic mass. 2. Sacral decubitus ulcer. 3. Acute kidney injury, resolved. 4. Supraventricular tachycardia in the OR, resolved. 5. Deep vein thrombosis to right common femoral vein, proximal greater saphenous vein, and proximal right superior femoral vein. 6. History of diverticulitis, hypertension, colostomy takedown, and partial small-bowel resection. PLAN: Continue current diet and pain regimen. Continue physical and occupational therapy. Continue supportive care. The patient is pending placement. She is ready for discharge at this time. Job ID: [id number]
[2020-09-26] MEDS: Acetaminophen 325 MG/10.15 ML UDCUP PO SCH ×4 (04:25→21:09)
[2020-09-26] MEDS: Piperacillin/Tazobactam 2.25 GM in Sodium Chloride 0.9% 100 ML IVPB SCH ×4 (05:27→23:27)
[2020-09-26 07:23] LABS: #Eosinphils 0.1 thou/uL (0.0-0.7); #Lymphocytes 1.2 thou/uL (1.20-3.40); #Monocytes 0.4 thou/uL (0.11-0.59); #Neutrophils 12.8 thou/uL (1.40-6.50); %Basophils 0.3 % (0.0-1.0); %Eosinophils 0.5 % (0.0-10.0); %Lymphocytes 8.2 % (21.0-51.0); %Monocytes 2.5 % (0.0-10.0); %Neutrophils 88.6 % (42.0-75.0); Hemoglobin 7.9 g/dL (12.0-16.0); Mean Corpuscular HGB CONC 29.2 g/dL (32.0-36.0); Mean Corpuscular Hemoglobin 26.7 pg (27.0-31.0); Mean Corpuscular Volume 91.5 fL (78.0-98.0); Mean Platelet Volume 9.5 fL (7.4-10.4); Platelet Count 304 thou/uL (130-400); RBC Distribution Width 16.3 % (11.5-14.5); Red Blood Cell (RBC) Count 2.97 mill/uL (4.20-5.40); White Blood Cell (WBC) Count 14.4 thou/uL (4.8-10.8)
[2020-09-26 07:24] LABS: Anion Gap 14 mmol/L (10-20); BUN (Urea Nitrogen) 25 mg/dL (9.8-20.1); Calc. Creatinine Clearance 0 mL/min (70-130); Calcium 9.4 mg/dL (7.8-10.44); Carbon Dioxide 29 mmol/L (23-31); Chloride 101 mmol/L (98-107); Glucose 155 mg/dL (83-110); Magnesium 1.7 mg/dL (1.6-2.6); Phosphorus 2.9 mg/dL (2.3-4.7); Sodium 140 mmol/L (136-145)
[2020-09-26 08:45] LABS: Hypochromia SLIGHT = 6-15 cells (100X) (0-5/hpf); MDiff Complete? YES; Platelet Morphology Comment Appears Adequate; Polychromasia SLIGHT = 2-3 cells (100X) (0-2/hpf); Target Cells SLIGHT = 2-5 cells (100X) (0-1/hpf)
[2020-09-26] MEDS: Spironolactone 25 MG TAB PO SCH (08:52)
[2020-09-26] MEDS: Amiodarone 200 MG TAB PO SCH (08:52)
[2020-09-26] MEDS: Furosemide 40 MG/4 ML VIAL SLOW IVP SCH (08:53)
[2020-09-26] MEDS: Metamucil PACK PER TUBE SCH (08:53)
[2020-09-26] MEDS: Apixaban 5 MG TAB PO SCH ×2 (08:53→21:10)
[2020-09-26] MEDS: Fluconazole In NaCl,Iso-Osm 200 MG in Premix Bag 1 BAG IVPB SCH (08:53)
[2020-09-26] MEDS: Bisoprolol Fumarate 5 MG TAB PO SCH (08:54)
[2020-09-26] MEDS ORDERED: SODIUM PHOSPHATE IVPB SCH (14:30)
[2020-09-26] MEDS ORDERED: SODIUM CHLORIDE 0.9% IVPB SCH (14:30)
[2020-09-26] MEDS ORDERED: MAGNESIUM SULFATE IVPB SCH (14:30)
[2020-09-26] MEDS ORDERED: Magnesium Sulfate 3 GM in Sodium Chloride 0.9% 100 ML IVPB SCH (15:00)
[2020-09-26] MEDS: Ferrous Sulfate 325 MG TAB PO SCH (15:36)
--- NOTE | 2020-09-26 18:24 | PRG ---
DATE OF SERVICE: 09/26/2020 SUBJECTIVE: The patient was seen during morning rounds on the surgical floor. The patient is awake, alert, in no distress. The patient denies any pain at this time. Wound care is currently at bedside, changing out her abdominal incision wound VAC. The patient was also evaluated by Speech Therapy today and reports a delay in swallowing and cough. They will re-evaluate tomorrow to see if they can start to feed her. The patient remains on tube feeds at goal. The patient had no overnight events. OBJECTIVE: VITAL SIGNS: Temperature 98.2, pulse 77, respirations 20, SpO2 of 98% on 3 L nasal cannula, and blood pressure 105/63. GENERAL: Elderly female, awake, alert, in no distress. HEENT: Unremarkable. No JVD. CARDIAC: Regular rate and regular rhythm. RESPIRATORY: Good inspiratory and expiratory effort. Respirations are even and nonlabored. ABDOMEN: Soft, nontender, nondistended. Ileostomy is viable and productive of liquid stool and gas. The abdominal wound VAC in place and working appropriately. NEUROLOGIC: No focal deficits. LABORATORY DATA: WBC 14.4, RBC 2.97, hemoglobin 7.9, hematocrit 27.7, and platelets 304. Sodium 140, potassium 4.0, chloride 101, BUN 25, creatinine 0.64, estimated GFR 90, glucose 155, calcium 9.4, phosphorus 2.9, and magnesium 1.7. DIAGNOSTICS: There are no new diagnostics to review today. ASSESSMENT: 1. Postop day #11, status post exploratory laparotomy and right hemicolectomy with permanent ileostomy. 2. Acute congestive heart failure exacerbation, resolving. 3. Acute blood loss anemia, stable. 4. Recently-diagnosed moderately-differentiated carcinoma of the colon. PLAN: Correct electrolytes. Increase activity per Physical and Occupational Therapy. Continue speech eval daily. Pain management and supportive care. Continue tube feeds at goal. The plan was discussed with Dr. Carcamo who agreed. Job ID: [id number]
[2020-09-26] MEDS: Pantoprazole 40 MG VIAL IVP SCH (21:06)
[2020-09-27] MEDS: Acetaminophen 325 MG/10.15 ML UDCUP PO SCH ×4 (02:02→20:46)
--- NOTE | 2020-09-27 02:35 | PRG ---
DATE OF SERVICE: 09/26/2020 SUBJECTIVE: Patient was seen this evening during rounds. She was lying in bed, resting comfortably and asleep with no signs of acute distress. Nursing reported no acute events. OBJECTIVE: VITAL SIGNS: Temperature 98.5, pulse 85, respirations 18, oxygen saturation 96% on 2 L nasal cannula, blood pressure 108/68. ASSESSMENT: 1. Postoperative day 11 status post exploratory laparotomy with extensive adhesiolysis, total colectomy with segmental small-bowel resection, and end colostomy secondary to perforated viscus caused by colon mass. 2. Sacral decubitus ulcer. 3. Acute kidney injury, resolved. 4. Supraventricular tachycardia, resolved. 5. Thrombocytopenia. 6. Deep venous thrombosis to right lower extremity. 7. History of diverticulitis, hypertension, colostomy takedown, and partial bowel resection. PLAN: Continue tube feeds. Continue working with Speech. Continue physical and occupational therapy. We will consider discontinuing amiodarone as the patient's blood pressure is kind of remained soft. We will discuss this with Dr. Carcamo in the morning time. Job ID: [id number]
[2020-09-27 06:10] LABS: Anion Gap 14 mmol/L (10-20); BUN (Urea Nitrogen) 27 mg/dL (9.8-20.1); Calc. Creatinine Clearance 91 mL/min (70-130); Carbon Dioxide 29 mmol/L (23-31); Chloride 102 mmol/L (98-107); Potassium 4.2 mmol/L (3.5-5.1); Sodium 141 mmol/L (136-145)
[2020-09-27 06:11] LABS: Calcium 9.2 mg/dL (7.8-10.44); Glucose 173 mg/dL (83-110); Magnesium 2.1 mg/dL (1.6-2.6); Phosphorus 2.8 mg/dL (2.3-4.7)
[2020-09-27 06:26] LABS: Band 3 % (5-11); Hemoglobin 6.7 g/dL (12.0-16.0); Hypochromia SLIGHT = 6-15 cells (100X) (0-5/hpf); Lymphocytes 7 % (21-51); MDiff Complete? YES; Mean Corpuscular HGB CONC 30.3 g/dL (32.0-36.0); Mean Corpuscular Hemoglobin 27.7 pg (27.0-31.0); Mean Corpuscular Volume 91.4 fL (78.0-98.0); Mean Platelet Volume 8.4 fL (7.4-10.4); Monocytes 5 % (0-10); Neutrophil 85 % (42-75); Nucleated RBC 1 % (0); Platelet Count 376 thou/uL (130-400); Platelet Morphology Comment Appears Adequate; Red Blood Cell (RBC) Count 2.42 mill/uL (4.20-5.40); White Blood Cell (WBC) Count 13.9 thou/uL (4.8-10.8)
[2020-09-27] MEDS: Piperacillin/Tazobactam 2.25 GM in Sodium Chloride 0.9% 100 ML IVPB SCH ×3 (06:28→17:38)
[2020-09-27] MEDS ORDERED: Sodium Phosphate 30 MMOL in Sodium Chloride 0.9% 250 ML 250 ML IVPB SCH (08:00)
[2020-09-27] MEDS: Fluconazole In NaCl,Iso-Osm 200 MG in Premix Bag 1 BAG IVPB SCH (08:44)
[2020-09-27] MEDS: Bisoprolol Fumarate 5 MG TAB PO SCH (08:56)
[2020-09-27] MEDS: Ferrous Sulfate 325 MG TAB PO SCH ×2 (09:20→17:36)
[2020-09-27] MEDS: Amiodarone 200 MG TAB PO SCH (09:20)
[2020-09-27] MEDS: Ascorbic Acid 500 mg Chewable Tablet PO SCH (09:20)
[2020-09-27] MEDS: Metamucil PACK PER TUBE SCH (09:21)
[2020-09-27] MEDS: Furosemide 40 MG/4 ML VIAL SLOW IVP SCH (09:21)
[2020-09-27] MEDS: Apixaban 5 MG TAB PO SCH ×2 (09:21→20:47)
[2020-09-27] MEDS: Spironolactone 25 MG TAB PO SCH (09:21)
[2020-09-27] MEDS ORDERED: Iron, Sodium Ferric Gluconate 250 MG in Sodium Chloride 0.9% 100 ML IVPB SCH (12:00)
--- NOTE | 2020-09-27 12:16 | PRG ---
DATE OF SERVICE: 09/27/2020 SUBJECTIVE: Ms. Lai is postoperative day #11, status post exploratory laparotomy, total colectomy with end ileostomy for stage IIA M0 N0 moderately differentiated adenocarcinoma of the colon. She remains quite fatigued and deconditioned. She is tolerating tube feeds at goal, although the nasojejunal tube was clogged overnight and multiple attempts to declog has been unsuccessful. Her urinary output is adequate for her age and weight. OBJECTIVE: VITAL SIGNS: This morning include blood pressure 110/69, pulse is 94 and irregular, respiratory rate is 18, temperature is 97.9 degrees Fahrenheit, and oxygen saturation 98% on room air. HEENT: Pupils are equal, round, and reactive to light and accommodation. NECK: She has no jugular venous distention noted. HEART: Reveals irregular rate and rhythm. Rate controlled. LUNGS: Reveal scattered rhonchi. Breathing, regular and unlabored. ABDOMEN: Soft, nontender, and nondistended. Ileostomy is viable and functional with stool and gas. NEUROLOGIC: Reveals no focal deficits present. LABORATORY FINDINGS: Include a CBC with 13,900 white blood cells, hemoglobin and hematocrit are 6.7 and 22.1 respectively. The patient's platelet count is 376,000. Metabolic profile: Sodium 141, potassium 4.2, chloride is 102, bicarb is 29, BUN is 27, creatinine 0.62, glucose is 173, magnesium is 2.1, and phosphorus 2.8. IMPRESSION: 1. Postoperative day #11, status post exploratory laparotomy and total colectomy with permanent ileostomy. 2. Acute blood loss anemia. 3. Acute hypophosphatemia. PLAN: 1. Correct abnormal electrolytes. 2. The patient will be transfused 1 unit of packed red blood cells. 3. We will initiate iron replacement therapy. 4. Nasojejunal tube was removed. 5. Speech and Language pathologist to evaluate the patient for oral intake. If the patient fails to take adequate daily calorie requirement over the next 24 hours, we will consider replacement of the feeding tube to facilitate enteral nutritional supplementation at that time. Job ID: [id number]
[2020-09-27] MEDS: Pantoprazole 40 MG VIAL IVP SCH (20:47)
[2020-09-27] MEDS: TAZOBACTAM IVPB SCH (23:40)
[2020-09-27] MEDS: SODIUM CHLORIDE 0.9% IVPB SCH (23:40)
[2020-09-27] MEDS: PIPERACILLIN IVPB SCH (23:40)
--- NOTE | 2020-09-28 00:41 | PRG ---
DATE OF SERVICE: 09/27/2020 SUBJECTIVE: The patient was seen this evening during rounds. She was lying in bed, resting comfortably and asleep with no signs of acute distress. Nursing reported no acute events. OBJECTIVE: VITAL SIGNS: Temperature 97.6, pulse 90, respirations 16, oxygen saturation 99% on 2 L nasal cannula, and blood pressure 112/69. GENERAL: Well-appearing elderly female, sitting up in bed, resting comfortably and asleep with no signs of acute distress. ASSESSMENT: 1. Postoperative day 12 status post exploratory laparotomy, adhesiolysis, and total colectomy with segmental small-bowel resection and end colostomy for perforated viscus due to colonic mass. 2. Acute kidney injury, resolved. 3. Sacral decubitus ulcer, persistent. 4. Supraventricular tachycardia in OR, resolved. 5. Deep venous thrombosis, right lower extremity. 6. History of diverticulitis, hypertension, colostomy takedown, and partial bowel resection. PLAN: Continue current diet and pain regimen. Continue physical and occupational therapy. Repeat blood work in the morning as the patient received 1 unit of blood for hemoglobin of 6.7 due to acute blood loss anemia secondary to surgery. Job ID: [id number]
[2020-09-28] MEDS: Acetaminophen 325 MG/10.15 ML UDCUP PO SCH ×4 (04:12→22:05)
[2020-09-28] MEDS: TAZOBACTAM IVPB SCH ×2 (04:45→15:16)
[2020-09-28] MEDS: SODIUM CHLORIDE 0.9% IVPB SCH ×2 (04:45→15:16)
[2020-09-28] MEDS: PIPERACILLIN IVPB SCH ×2 (04:45→15:16)
[2020-09-28 06:12] LABS: #Basophils 0.1 thou/uL (0.0-0.2); #Eosinphils 0.1 thou/uL (0.0-0.7); #Lymphocytes 1.2 thou/uL (1.20-3.40); #Monocytes 0.4 thou/uL (0.11-0.59); #Neutrophils 8.8 thou/uL (1.40-6.50); %Basophils 0.6 % (0.0-1.0); %Eosinophils 0.7 % (0.0-10.0); %Neutrophils 83.7 % (42.0-75.0); Hemoglobin 7.9 g/dL (12.0-16.0); Mean Corpuscular HGB CONC 31.3 g/dL (32.0-36.0); Mean Corpuscular Volume 89.5 fL (78.0-98.0); Mean Platelet Volume 7.7 fL (7.4-10.4); Platelet Count 398 thou/uL (130-400); RBC Distribution Width 15.7 % (11.5-14.5); Red Blood Cell (RBC) Count 2.83 mill/uL (4.20-5.40); White Blood Cell (WBC) Count 10.5 thou/uL (4.8-10.8)
[2020-09-28 06:36] LABS: Anion Gap 13 mmol/L (10-20); BUN (Urea Nitrogen) 21 mg/dL (9.8-20.1); Calc. Creatinine Clearance 99 mL/min (70-130); Calcium 9.3 mg/dL (7.8-10.44); Carbon Dioxide 30 mmol/L (23-31); Chloride 104 mmol/L (98-107); Glucose 108 mg/dL (83-110); Magnesium 1.9 mg/dL (1.6-2.6); Potassium 3.9 mmol/L (3.5-5.1); Sodium 143 mmol/L (136-145)
[2020-09-28] MEDS: Apixaban 5 MG TAB PO SCH ×2 (08:08→22:06)
[2020-09-28] MEDS: Furosemide 40 MG/4 ML VIAL SLOW IVP SCH (08:08)
[2020-09-28] MEDS: Spironolactone 25 MG TAB PO SCH (08:08)
[2020-09-28] MEDS: Amiodarone 200 MG TAB PO SCH (08:08)
[2020-09-28] MEDS: Ferrous Sulfate 325 MG TAB PO SCH ×2 (08:09→17:41)
[2020-09-28] MEDS: Ascorbic Acid 500 mg Chewable Tablet PO SCH (08:09)
[2020-09-28] MEDS: Metamucil PACK PER TUBE SCH (08:09)
[2020-09-28] MEDS ORDERED: Piperacillin/Tazobactam 2.25 GM VIAL ONE (11:59)
[2020-09-28] MEDS ORDERED: Saccharomyces boulardii 250 MG CAP PO SCH (12:00)
[2020-09-28] MEDS ORDERED: Piperacillin/Tazobactam 3.375 GM in Sodium Chloride 0.9% 100 ML IVPB SCH (12:15)
[2020-09-28] MEDS: Piperacillin/Tazobactam 3.375 GM in Sodium Chloride 0.9% 100 ML IVPB SCH ×2 (12:27→17:40)
[2020-09-28 14:08] VITALS: BMI 27.1
[2020-09-28] MEDS: Bisoprolol Fumarate 5 MG TAB PO SCH (15:07)
--- NOTE | 2020-09-28 18:12 | PRG ---
DATE OF SERVICE: 09/28/2020 SUBJECTIVE: The patient was seen during morning rounds. Awake, alert, no distress. The patient had no overnight events. The patient is tolerating her modified regular diet without any difficulties. The patient did receive blood yesterday for low hemoglobin. Her hemoglobin is stable this morning. The patient's ileostomy continues to put out liquid stool. The patient's wound VAC is working appropriately. The patient denies any pain at this time. Her urinary output is adequate for age and weight. OBJECTIVE: VITAL SIGNS: Temperature 98.2, pulse 86, respirations 16, SpO2 of 100% on 2 L nasal cannula, blood pressure 129/79. GENERAL: Elderly female, awake, alert, in no distress. HEENT: Unremarkable. RESPIRATORY: Good inspiratory and expiratory effort. Respirations are even and nonlabored. CARDIAC: Regular rate, regular rhythm. ABDOMEN: Soft, nontender, nondistended. Ileostomy is viable and has productive liquid stool and gas. NEUROLOGIC: No focal deficits. LABORATORY DATA: WBC 10.5, RBC 2.83, hemoglobin 7.9, hematocrit 25.3, platelets 398. Sodium 143, potassium 3.9, chloride 104, BUN 21, creatinine 0.58, estimated GFR greater than 90, phosphorus 3.0, magnesium 1.9. DIAGNOSTICS: There is no new diagnostics to review today. IMPRESSION: 1. Postop day #12 status post exploratory laparotomy and total colectomy with permanent ileostomy. 2. Acute blood loss anemia, stable. PLAN: Continue supportive care and pain regimen. Continue modified diet as tolerated. The patient is pending placement to [facility] swing bed. Wound Care to continue wound VAC changes 3 days a week. The plan was discussed with the attending, who agrees. Job ID: [id number]
[2020-09-28] MEDS: Pantoprazole 40 MG VIAL IVP SCH (22:06)
--- NOTE | 2020-09-29 02:08 | PRG ---
DATE OF SERVICE: 09/28/2020 SUBJECTIVE: The patient was seen this evening during rounds. She was sitting up in bed, sleeping comfortably with no signs of acute distress. Nursing reported no acute events. OBJECTIVE: VITAL SIGNS: Temperature 97.9, pulse 83, respirations 16, oxygen saturation 100% on 1.5 L nasal cannula, and blood pressure 127/74. GENERAL: Well-appearing elderly female, sitting up in bed, resting comfortably with no signs of acute distress. ASSESSMENT: 1. Postop day 13 status post exploratory laparotomy, extensive adhesiolysis, total colectomy with segmental small-bowel resection, and end colostomy due to perforated viscus caused by colonic mass. 2. Acute kidney injury, resolved. 3. Sacral decubitus ulcer. 4. Supraventricular tachycardia in OR. 5. Deep venous thrombosis, right lower extremity. 6. History of diverticulitis, hypertension, colostomy takedown, and partial small-bowel resection. PLAN: Continue current diet and pain regimen. Continue physical and occupational therapy. Discontinue antibiotics. The patient is pretty much ready for discharge to [facility]. We will re-evaluate her in the morning. Job ID: [id number]
[2020-09-29] MEDS: Acetaminophen 325 MG/10.15 ML UDCUP PO SCH ×2 (02:42→09:05)
[2020-09-29 05:45] LABS: Anion Gap 14 mmol/L (10-20); BUN (Urea Nitrogen) 18 mg/dL (9.8-20.1); Calc. Creatinine Clearance 92 mL/min (70-130); Calcium 9.8 mg/dL (7.8-10.44); Carbon Dioxide 31 mmol/L (23-31); Chloride 104 mmol/L (98-107); Glucose 96 mg/dL (83-110); Magnesium 1.9 mg/dL (1.6-2.6); Phosphorus 3.2 mg/dL (2.3-4.7); Potassium 3.8 mmol/L (3.5-5.1); Sodium 145 mmol/L (136-145)
[2020-09-29 06:54] LABS: Anisocytosis SLIGHT = 6-15 cells (100X) (0-5/hpf); Band 8 % (5-11); Eosinophils 3 % (0-10); Hemoglobin 7.8 g/dL (12.0-16.0); Lymphocytes 12 % (21-51); MDiff Complete? YES; Mean Corpuscular HGB CONC 29.8 g/dL (32.0-36.0); Mean Corpuscular Hemoglobin 26.9 pg (27.0-31.0); Mean Corpuscular Volume 90.4 fL (78.0-98.0); Mean Platelet Volume 10.5 fL (7.4-10.4); Monocytes 4 % (0-10); Neutrophil 72 % (42-75); Platelet Clumps MARKED; Platelet Count 352 thou/uL (130-400); RBC Distribution Width 15.6 % (11.5-14.5); Reactive Lymphocytes 1 % (0-10); Red Blood Cell (RBC) Count 2.91 mill/uL (4.20-5.40); White Blood Cell (WBC) Count 9.5 thou/uL (4.8-10.8)
[2020-09-29] MEDS: Metamucil PACK PER TUBE SCH (09:03)
[2020-09-29] MEDS: Ascorbic Acid 500 mg Chewable Tablet PO SCH (09:04)
[2020-09-29] MEDS: Saccharomyces boulardii 250 MG CAP PO SCH (09:04)
[2020-09-29] MEDS: Furosemide 40 MG TAB PO SCH (09:04)
[2020-09-29] MEDS: Amiodarone 200 MG TAB PO SCH (09:04)
[2020-09-29] MEDS: Apixaban 5 MG TAB PO SCH ×2 (09:04→21:26)
[2020-09-29] MEDS: Ferrous Sulfate 325 MG TAB PO SCH ×2 (09:04→16:47)
[2020-09-29] MEDS: Spironolactone 25 MG TAB PO SCH (09:04)
[2020-09-29] MEDS: Bisoprolol Fumarate/HCTZ 5 mg/6.25 mg Tablet PO SCH (09:09)
[2020-09-29] MEDS: Acetaminophen 325 MG TAB PO SCH ×2 (15:06→21:26)
[2020-09-29] MEDS ORDERED: Lidocaine 1% (PF) 30 ML VIAL ONE (15:11)
--- NOTE | 2020-09-29 19:43 | PRG ---
DATE OF SERVICE: 09/29/2020 SUBJECTIVE: The patient was seen during morning rounds. Awake, alert, in no distress. The patient had no overnight events. The patient continues to tolerate a regular diet with modifications. The patient still has some ulcers on her tongue and mouth, which has caused her to have some difficulty swallowing, needing modified diet. The patient is still requiring oxygen at this time. The patient had a mild decrease in her urine output and ileostomy output overnight. In the last 8 hours, the patient's output has been adequate. OBJECTIVE: VITAL SIGNS: Temperature 98.6, pulse 79, respirations 18, SpO2 of 98% on 1.5 L nasal cannula, blood pressure 114/73. GENERAL: Elderly female, awake, alert, in no distress. HEENT: Head is atraumatic and normocephalic. Lips are cracked and bleeding. Mucous membranes are moist, ulcers noted to tongue. RESPIRATIONS: Good inspiratory and expiratory effort. Breath sounds clear and nonlabored. CARDIAC: Regular rate. Regular rhythm. ABDOMEN: Soft, nontender, nondistended. Ostomy is viable. Liquid stool and gas present. Abdominal incision with VAC in place working appropriately. NEUROLOGIC: No focal deficits. LABORATORY DATA: WBC 9.5, RBC 2.91, hemoglobin 7.8, hematocrit 26.3, platelets 252. Sodium 145, potassium 3.8, BUN 18, creatinine 0.59, estimated GFR greater than 90, glucose 96, calcium 9.5, phosphorus 3.2 magnesium 1.9. DIAGNOSTICS: No new diagnostics to review today. IMPRESSION: 1. Postop day #13 status post exploratory laparotomy and total colectomy with permanent ileostomy. 2. Acute blood loss anemia, stable. 3. Sacral decubitus. 4. Deconditioning. PLAN: Continue supportive care and pain regimen. We will stop Lasix IV and change to p.o. The patient has been accepted to [facility]. I did attempt to do [id number] with Dr. Lizama, but unable to get through with him. I did leave a message, but I have not had a return phone call. Nurse is unable to call report until [id number] is obtained. We will continue to try. Dr. Carcamo did evaluate the patient and remove the wound VAC and close the wound with keith. The patient's Olguin catheter has been removed. We will monitor urinary output. The patient will follow up in clinic in 2 weeks for evaluation of wound and ostomy. Continue a regular modified diet and supplement with Ensure. The plan was discussed with the patient who agrees. Job ID: [id number]
[2020-09-29] MEDS: Pantoprazole 40 MG VIAL IVP SCH (21:27)
--- NOTE | 2020-09-29 21:32 | OP ---
DATE OF PROCEDURE: 09/29/2020 PREOPERATIVE DIAGNOSES: 1. Status post exploratory laparotomy with total colectomy and ileostomy for stage II colon cancer. 2. Open abdominal wound. POSTOPERATIVE DIAGNOSES: 1. Status post exploratory laparotomy with total colectomy and ileostomy for stage II colon cancer. 2. Open abdominal wound. PROCEDURE PERFORMED: Delayed primary closure of abdominal wound. INDICATIONS FOR PROCEDURE: A 74-year-old woman, underwent laparotomy with total colectomy and end ileostomy on 09/15/2020. The incisional wound failed to heal after 9 days. Wound VAC was placed and wound is inspected today with good granulation. Decision was made to close the wound in a delayed primary fashion. DESCRIPTION OF PROCEDURE: Informed consent was obtained from the patient, placed in supine position. The wound was sterilely prepped and draped in usual fashion. The wound bed was infiltrated with 1% lidocaine. Skin edges were then approximated using keith. Sterile dressings were applied. The patient tolerated procedure without any apparent complication and remained hemodynamically stable following completion of procedure. Job ID: [id number]
--- NOTE | 2020-09-30 01:38 | PRG ---
DATE OF SERVICE: 09/29/2020 SUBJECTIVE: The patient was seen this evening during rounds. She was sitting up in bed, resting comfortably and asleep with no signs of acute distress. Nursing reported no acute events. OBJECTIVE: VITAL SIGNS: Temperature 97.8, pulse 82, respirations 16, oxygen saturation 96% on 1 L nasal cannula, and blood pressure 108/56. ASSESSMENT: 1. Postop day 14, status post exploratory laparotomy, extensive adhesiolysis, total colectomy, segmental small-bowel resection, and end colostomy due to perforated viscus caused by colon mass. 2. Acute kidney injury, resolved. 3. Supraventricular tachycardia, resolved. 4. Deep venous thrombosis, right lower extremity. 5. History of diverticulitis, hypertension, colostomy takedown, and partial bowel resection. PLAN: Continue current diet and pain regimen. Continue physical and occupational therapy. The patient's abdominal VAC was taken down and the skin was stapled today by Dr. Carcamo. She is pending discharge to [facility] bed. We are awaiting for Dr. Lizama to call back to do the doc-to-doc. She is ready for discharge at this time. Job ID: [id number]
[2020-09-30] MEDS: Acetaminophen 325 MG TAB PO SCH ×2 (02:01→08:53)
[2020-09-30 05:02] LABS: #Eosinphils 0.1 thou/uL (0.0-0.7); #Lymphocytes 1.3 thou/uL (1.20-3.40); #Monocytes 0.4 thou/uL (0.11-0.59); #Neutrophils 6.3 thou/uL (1.40-6.50); %Basophils 0.5 % (0.0-1.0); %Eosinophils 1.4 % (0.0-10.0); %Lymphocytes 16.1 % (21.0-51.0); %Monocytes 4.3 % (0.0-10.0); %Neutrophils 77.7 % (42.0-75.0); Hemoglobin 7.7 g/dL (12.0-16.0); Mean Corpuscular Hemoglobin 27.2 pg (27.0-31.0); Mean Corpuscular Volume 90.5 fL (78.0-98.0); Mean Platelet Volume 7.3 fL (7.4-10.4); Platelet Count 446 thou/uL (130-400); RBC Distribution Width 15.9 % (11.5-14.5); Red Blood Cell (RBC) Count 2.84 mill/uL (4.20-5.40); White Blood Cell (WBC) Count 8.1 thou/uL (4.8-10.8)
[2020-09-30 05:11] LABS: Anion Gap 11 mmol/L (10-20); BUN (Urea Nitrogen) 15 mg/dL (9.8-20.1); Calc. Creatinine Clearance 93 mL/min (70-130); Calcium 9.9 mg/dL (7.8-10.44); Carbon Dioxide 32 mmol/L (23-31); Chloride 105 mmol/L (98-107); Glucose 92 mg/dL (83-110); Magnesium 1.8 mg/dL (1.6-2.6); Phosphorus 3.1 mg/dL (2.3-4.7); Potassium 3.6 mmol/L (3.5-5.1); Sodium 144 mmol/L (136-145)
[2020-09-30] MEDS: Amiodarone 200 MG TAB PO SCH (08:52)
[2020-09-30] MEDS: Spironolactone 25 MG TAB PO SCH (08:53)
[2020-09-30] MEDS: Ascorbic Acid 500 mg Chewable Tablet PO SCH (08:53)
[2020-09-30] MEDS: Ferrous Sulfate 325 MG TAB PO SCH (08:53)
[2020-09-30] MEDS: Bisoprolol Fumarate/HCTZ 5 mg/6.25 mg Tablet PO SCH (08:53)
[2020-09-30] MEDS: Saccharomyces boulardii 250 MG CAP PO SCH (08:53)
[2020-09-30] MEDS: Apixaban 5 MG TAB PO SCH (08:53)
[2020-09-30] MEDS: Furosemide 40 MG TAB PO SCH (08:53)
[2020-09-30] MEDS: Metamucil PACK PER TUBE SCH (08:54)
[2020-09-30 11:32] VITALS: BP 122/71; TEMP 97.7
[2020-10-01] MEDS ORDERED: Apixaban 5 MG TAB PO SCH (09:00)
--- NOTE | 2020-10-01 12:00 | DIS ---
DATE OF ADMISSION: 09/15/2020 DATE OF DISCHARGE: 09/30/2020 ATTENDING: Dr. Carcamo. CONSULTS: 1. Cardiology, Dr. Gonzales. 2. Oncology, Dr. Templeton. PROCEDURES: On 09/15/20, placement of a triple-lumen left subclavian central venous catheter, exploratory laparotomy, extensive adhesiolysis, total colectomy with segmental small bowel resection, end colectomy. On 09/18/20, placement of an arterial line for hemodynamics monitoring. On 09/29/20, delayed primary closure of abdominal wound with keith. PRIMARY DIAGNOSES: Acute perforated viscus secondary to perforated colon neoplasm, partial small-bowel obstruction, acute peritonitis, acute septic shock, acute kidney injury, anemia of chronic illness, moderate protein calorie malnutrition, sacral decubitus ulcer, supraventricular tachycardia postop, deep venous thrombosis of right lower extremity. SECONDARY DIAGNOSES: Diverticulitis, hypertension, colostomy takedown, partial small bowel resection. DISCHARGE MEDICATIONS: 1. Acetaminophen 325 mg p.o. q.6 hours. 2. Amiodarone 400 mg daily x1 month, then can discontinue. 3. Eliquis 5 mg p.o. b.i.d. 4. Artificial Tears. 5. Vitamin C 500 mg p.o. daily. 6. Bisoprolol/HCTZ 5-6.25 mg daily. 7. Ferrous sulfate 325 mg p.o. b.i.d. 8. Furosemide 40 mg p.o. daily. 9. DuoNeb as needed. 10. Protonix 40 mg p.o. daily. 11. Metamucil daily. 12. Florastor 250 mg p.o. daily for 30 days. 13. Aldactone 25 mg p.o. q.a.m. No discontinued medications. HISTORY OF PRESENT ILLNESS AND HOSPITAL COURSE: This is a 74-year-old woman who presented to [place] ER with deconditioning, fatigue, abdominal pain, and poor hygiene over the past week. The patient's daughter found her this way at her home. The patient was brought to the emergency room and complained of progressive abdominal pain, diarrhea, profound fatigue and weight loss over several weeks. The patient did not have any fever, but did report some chills. The patient had some nausea, nausea, but no vomiting. The patient denied any hematochezia and melena. The patient was transferred to [facility]. The patient was treated for septic shock and was intubated and on multiple pressors for several days. The patient was eventually weaned off pressors and extubated. The patient did go into SVT postop. Cardiology was consulted. The patient was evaluated by Oncology for stage II colon cancer with bowel perforation. The patient's nutrition was given via tube feeds. The patient was eventually able to take in a regular diet with modifications. The patient did receive a total of 5 units of packed red blood cells during her entire stay for anemia. Her ileostomy was viable and producing gas and liquid stools. The patient worked with Physical and Occupational therapy, although the patient was not able to ambulate due to her severe deconditioning. The patient did have a wound VAC placed to her midline abdominal wound that was managed by Wound Care and change 3 days a week. Wound Care also treated her sacral decubitus. On the day of discharge, the patient was evaluated by Dr. Carcamo. The patient's abdominal wound VAC was taken down and the skin was closed with keith. The patient was tolerating a regular modified diet. The patient continued to have good output in her ostomy. Her vital signs were stable and her exam was unremarkable including cardiopulmonary and GI exam. The patient's labs consisted of a hemoglobin of 7.7, hematocrit 25.7. Her white count was normal. Her BUN 15, creatinine 0.58, sodium 144, potassium 3.6. The patient was deemed stable for transfer to [facility]. Report was called to Dr. Lizama. The patient will continue to have Physical Therapy, Occupational Therapy, and Speech Therapy while she is at [facility]. DISPOSITION: Stable. DISCHARGE INSTRUCTIONS: 1. Location: [facility] unit. 2. Diet: Regular diet with modifications. 3. Activity: As tolerated. 4. Followup: Follow up with Cardiology in 2 weeks. Follow up with Dr. Carcamo on October 16, 2020, at 2:00 p.m. for staple removal. Follow up with Oncology, Dr. Templeton. They will schedule her appointment. This is just a summary of the patient's hospital stay. Please see the entire medical record for details. Job ID: [id number] [facility]
== END 2020-09-30 13:05 | DRG 853 ==
LOC: ERS 22:24 → SDC/OP 09-15 00:17 → CCU 09-15 01:01 → IMCU/EMU 09-23 22:43 → SURG B 09-25 18:22
PROVIDERS: ADMIT Surgery; ATTEND Surgery
PROC: 0DB80ZZ Excision of Small Intestine, Open Approach (ICD-10-PCS; principal; 2020-09-15)
PROC: 5A1955Z Respiratory Ventilation, Greater than 96 Consecutive Hours (ICD-10-PCS; 2020-09-15)
PROC: 0BH17EZ Insertion of Endotracheal Airway into Trachea, Via Natural or Artificial Opening (ICD-10-PCS; 2020-09-15)
PROC: 0DTF0ZZ Resection of Right Large Intestine, Open Approach (ICD-10-PCS; 2020-09-15)
PROC: 0DTG0ZZ Resection of Left Large Intestine, Open Approach (ICD-10-PCS; 2020-09-15)
PROC: 0D1B0Z4 Bypass Ileum to Cutaneous, Open Approach (ICD-10-PCS; 2020-09-15)
PROC: 02HV33Z Insertion of Infusion Device into Superior Vena Cava, Percutaneous Approach (ICD-10-PCS; 2020-09-15)
PROC: 0DH67UZ Insertion of Feeding Device into Stomach, Via Natural or Artificial Opening (ICD-10-PCS; 2020-09-15)
PROC: 3E033XZ Introduction of Vasopressor into Peripheral Vein, Percutaneous Approach (ICD-10-PCS; 2020-09-15)
PROC: 0DNW0ZZ Release Peritoneum, Open Approach (ICD-10-PCS; 2020-09-15)
PROC: 0WQF0ZZ Repair Abdominal Wall, Open Approach (ICD-10-PCS; 2020-09-15)
PROC: 5A2204Z Restoration of Cardiac Rhythm, Single (ICD-10-PCS; 2020-09-15)
PROC: 03HY32Z Insertion of Monitoring Device into Upper Artery, Percutaneous Approach (ICD-10-PCS; 2020-09-18)
PROC: 0HQ7XZZ Repair Abdomen Skin, External Approach (ICD-10-PCS; 2020-09-29)
DX: A41.9 Sepsis, unspecified organism (principal); R65.21 Severe sepsis with septic shock; J96.00 Acute respiratory failure, unspecified whether with hypoxia or hypercapnia; I50.31 Acute diastolic (congestive) heart failure; K65.0 Generalized (acute) peritonitis; E44.0 Moderate protein-calorie malnutrition; K56.600 Partial intestinal obstruction, unspecified as to cause; N17.9 Acute kidney failure, unspecified; E87.2 Acidosis; I47.1 Supraventricular tachycardia; E87.0 Hyperosmolality and hypernatremia; D62 Acute posthemorrhagic anemia; I42.9 Cardiomyopathy, unspecified; I82.411 Acute embolism and thrombosis of right femoral vein; C18.9 Malignant neoplasm of colon, unspecified; K57.92 Diverticulitis of intestine, part unspecified, without perforation or abscess without bleeding; D63.8 Anemia in other chronic diseases classified elsewhere; L89.159 Pressure ulcer of sacral region, unspecified stage; E87.6 Hypokalemia; E83.39 Other disorders of phosphorus metabolism; D69.6 Thrombocytopenia, unspecified; I11.0 Hypertensive heart disease with heart failure; I48.0 Paroxysmal atrial fibrillation; Z20.822 Contact with and (suspected) exposure to COVID-19; R53.81 Other malaise; E83.42 Hypomagnesemia; I34.0 Nonrheumatic mitral (valve) insufficiency; Z90.49 Acquired absence of other specified parts of digestive tract; Z90.710 Acquired absence of both cervix and uterus; Z90.721 Acquired absence of ovaries, unilateral; Z93.3 Colostomy status; Z88.2 Allergy status to sulfonamides; Z68.25 Body mass index [BMI] 25.0-25.9, adult
CPT/HCPCS: 0240U; 36415; 36416; 36430; 36600; 70450; 71045; 74018; 80048; 80053; 80162; 82040; 82533; 82805; 83605; 83735; 83880; 84100; 84484; 85007; 85025; 85027; 85610; 85730; 86850; 86900; 86901; 88309; 88361; 93005; 93010; 93306; 93970; 94002; 94003; 94640; 94660; 96374; C9113; J0153; J0282; J1100; J1160; J1250; J1450; J1650; J1940; J2001; J2060; J2250; J2405; J2543; J2916; J3010; J3475; J3480; J3490; J7050; J7070; J7620; P9016; P9045; P9047; S0028

== ENCOUNTER 2020-10-05 15:01 | Inpatient (IN) | payer MEDICARE ==
[~2020-10-05 15:01] MED LIST: Iopamidol-370 76% 500 ML 1 ML ONE
[2020-10-05 15:50] LABS: Bilirubin Small (Negative); Blood, Urine Large (Negative); Glucose, Urine (Dipstick) Negative (Negative); Ketone, Urine Trace mg/dL (Negative); Leukocyte Moderate (Negative); Nitrite Positive (Negative); Protein, Urine (Dipstick) > or equal to 300 mg/dL (Neg-Trace); Urobilinogen 0.2 mg/dL (Less than 2)
[2020-10-05 15:52] LABS: Clarity Opaque (Clear)
--- NOTE | 2020-10-05 15:58 | RAD ---
XR Chest 1 View Portable HISTORY: Altered mental status, seizure COMPARISON: Earlier exam of 11:24 AM from same date FINDINGS: There are mild atelectatic changes at the left lung base which appear to be new since the p revious exam. A small left pleural effusion cannot be excluded. Remainder the exam is otherwise unchanged.
[2020-10-05 15:59] LABS: Hemoglobin 10.1 g/dL (12.0-16.0); Mean Corpuscular HGB CONC 30.5 g/dL (32.0-36.0); Mean Corpuscular Volume 91.8 fL (78.0-98.0); Mean Platelet Volume 7.3 fL (7.4-10.4); Platelet Count 596 thou/uL (130-400); RBC Distribution Width 15.8 % (11.5-14.5); Red Blood Cell (RBC) Count 3.59 mill/uL (4.20-5.40); White Blood Cell (WBC) Count 24.2 thou/uL (4.8-10.8)
[2020-10-05 15:59] LABS: Specific Gravity, Urine 1.027 (1.002-1.036)
[2020-10-05 16:04] LABS: RBC/HPF Greater than 50 HPF (0-3); Squamous Epithelial 0-3 HPF (0-3); WBC/HPF Greater Than 50 HPF (0-3)
[2020-10-05 16:04] LABS: PTT 38.4 sec (22.9-36.1); Prothrombin Time 22.9 sec (12.0-14.7)
[2020-10-05 16:05] LABS: Bacteria/HPF 4+ HPF (None Seen); Calcium Oxalate Crystals 1+ HPF (None Seen); Renal Epithelial 0-3 HPF (None Seen)
[2020-10-05 16:20] LABS: ALT (SGPT) 27 U/L (8-55); AST (SGOT) 19 U/L (5-34); Alkaline Phosphatase 204 U/L (40-110); Anion Gap 13 mmol/L (10-20); BUN (Urea Nitrogen) 31 mg/dL (9.8-20.1); Bilirubin, Total 0.4 mg/dL (0.2-1.2); Calc. Creatinine Clearance 0 mL/min (70-130); Calcium 10.9 mg/dL (7.8-10.44); Carbon Dioxide 32 mmol/L (23-31); Chloride 97 mmol/L (98-107); Globulin 4.4 g/dL (2.4-3.5); Glucose 128 mg/dL (83-110); Potassium 4.2 mmol/L (3.5-5.1); Protein, Total 7.4 g/dL (6.0-8.3); Sodium 138 mmol/L (136-145)
[2020-10-05 16:28] LABS: Anisocytosis SLIGHT = 6-15 cells (100X) (0-5/hpf); Band 15 % (5-11); Eosinophils 2 % (0-10); Lymphocytes 17 % (21-51); MDiff Complete? YES; Metamyelocyte 4 % (0-0); Monocytes 4 % (0-10); Myelocyte 7 % (0-0); Neutrophil 51 % (42-75); Platelet Morphology Comment Appears Increased; Polychromasia SLIGHT = 2-3 cells (100X) (0-2/hpf)
--- NOTE | 2020-10-05 16:33 | PDOC.FPRHP ---
- History of Present Illness Chief Complaint: AMS History of Present Illness: This is a 74 y/o F with recent history of colectomy in 08/2020 due to a colon neoplasm resulting in perforation; after she was stabilized during this admission, she was transferred to [facility] where she remained until earlier today. Per report, around 1300 today she was noted to have some seizure like activity and subsequently became A&O x0. Prior to this, she was A&O x4. She was taken from the medical floor to the ER at [facility], where she had CT head revealing findings suspcious for L JUNIOR BRAND MANAGER infarct or possible underlying mass. Per ED provider report, had some rhythmic movements which resolved with administration of ativan. She was transferred to our facility for higher level of care. Evaluation performed in ED deemed that she was not an appropriate candidate for TPA. CTA head was performed, revealing patent L JUNIOR BRAND MANAGER. Unable to g ather further information from patient due to mental status. Discussed with daughter Lashawn, and son Chance. Son Chance reports some difficulty with speech while on the phone with patient last night, but no other deficits. ED course: vanc, rocephin, IVF, CXR, CT abd/pelvis - Allergies/Adverse Reactions Allergies Allergy/AdvReac Type Severity Reaction Status Date / Time Sulfa (Sulfonamide Allergy Verified 10/06/20 02:25 Antibiotics) - Home Medications Medication Instructions Recorded Confirmed Type Bisoprolol/Hydrochlorothiazide 1 tablet PO DAILY 09/17/20 10/06/20 History [Bisoprolol-Hctz 5-6.25 mg Tab] Acetaminophen [Tylenol Regular 325 mg PO Q6H tab 09/30/20 10/06/20 Rx Strength] Amiodarone [Cordarone] 400 mg PO QAM tab 09/30/20 10/06/20 Rx Apixaban [Eliquis] 10 mg PO BID tab 09/30/20 10/06/20 Rx Ferrous Sulfate [Feosol] 325 mg PO BID-WM tab 09/30/20 10/06/20 Rx Furosemide [Lasix] 40 mg PO 0900 tab 09/30/20 10/06/20 Rx Pantoprazole [Protonix] 40 mg IVP HS vial 09/30/20 10/06/20 Rx Saccharomyces boulardii [Florastor] 250 mg PO DAILY cap 09/30/20 10/06/20 Rx Spironolactone [Aldactone] 25 mg PO QAM-WM tab 09/30/20 10/06/20 Rx Ipratropium/Albuterol Sulfate 2.5 mg NEB [id number] 10/06/20 10/06/20 History [DuoNeb] - History PMHx: colon cancer, supraventricular tachycardia, RLE DVT, hypertension, HFrEF (EF 40-45%), diverticulosis PSHx: appendectomy, hysterectomy, sigmoidectomy w/colostomy, ex lap w/total colectomy, partial small bowel resection FHx: non-contributory Social: no tobacco/etoh/drug use per chart review - Review of Systems ROS unobtainable: due to mental status - Vital signs BP 150/87, HR 90, RR 25, 99% on 2L, Wt 55kg - Physical Exam -Constitutional: not alert or oriented HEENT: normocephalic and atraumatic, no scleral icterus, other (L pupil > R pupil, both reactive) -HEENT: dry mucous membranes, oral thrush Neck: supple, no LAD Chest: no-tender to palpation Heart: RRR, pulses present -Heart: bilateral non-pitting lower extremity edema, cool extremities bilaterally -Lungs: decreased breath sounds bilaterally on posterior examination, grossly aspirating Abdomen: soft, other (colostomy present with dark green stool) Musculoskeletal: normal structure Neurological: other (R upper extremity clonus) Skin: capillary refill <2 seconds Heme/Lymphatic: other (scattered purpura bilateral upper extremities) Psychiatric: other (unable to assess due to mental status) FMR H&P: Results - Labs Result Diagrams: 10/06/20 07:08 10/06/20 07:08 Lab results: WBC 24.2 thou/uL (4.8-10.8) H 10/05/20 15:48 Hgb 10.1 g/dL (12.0-16.0) L 10/05/20 15:48 Hct 33.0 % (36.0-47.0) L 10/05/20 15:48 MCV 91.8 fL (78.0-98.0) 10/05/20 15:48 Plt Count 596 thou/uL (130-400) H 10/05/20 15:48 Band Neuts % (Manual) 15 % (5-11) H 10/05/20 15:48 Sodium 138 mmol/L (136-145) 10/05/20 15:48 Potassium 4.2 mmol/L (3.5-5.1) 10/05/20 15:48 Chloride 97 mmol/L (98-107) L 10/05/20 15:48 Carbon Dioxide 32 mmol/L (23-31) H 10/05/20 15:48 BUN 31 mg/dL (9.8-20.1) H 10/05/20 15:48 Creatinine 1.26 mg/dL (0.6-1.1) H 10/05/20 15:48 Glucose 128 mg/dL (83-110) H 10/05/20 15:48 Lactic Acid 0.9 mmol/L (0.5-2.2) 10/05/20 15:48 Calcium 10.9 mg/dL (7.8-10.44) H 10/05/20 15:48 Total Bilirubin 0.4 mg/dL (0.2-1.2) 10/05/20 15:48 AST 19 U/L (5-34) 10/05/20 15:48 ALT 27 U/L (8-55) 10/05/20 15:48 Alkaline Phosphatase 204 U/L (40-110) H 10/05/20 15:48 B-Natriuretic Peptide 48.6 pg/mL (0-100) 10/05/20 15:48 Serum Total Protein 7.4 g/dL (6.0-8.3) 10/05/20 15:48 Albumin 3.0 g/dL (3.4-4.8) L 10/05/20 15:48 Urine Ketones Trace mg/dL (Negative) A 10/05/20 15:35 Urine Blood Large (Negative) A 10/05/20 15:35 Urine Nitrite Positive (Negative) A 10/05/20 15:35 Ur Leukocyte Esterase Moderate (Negative) H 10/05/20 15:35 Urine RBC Greater than 50 HPF (0-3) A 10/05/20 15:35 Urine WBC Greater Than 50 HPF (0-3) A 10/05/20 15:35 Ur Squamous Epith Cells 0-3 HPF (0-3) 10/05/20 15:35 Urine Bacteria 4+ HPF (None Seen) A 10/05/20 15:35 - EKG Interpretation EKG: LVH, sinus rhythm FMR H&P: A/P - Plan This is a 74 y/o F with recent diagnosis of colon cancer who underwent total colectomy after perforation due to neoplasm, who presents with altered mental status. Acute encephalopathy Unclear etiology. DDx includes: stroke, seizure, brain metastasis. May also be metabolic encephalopathy related to UTI, although lower suspicion that this is the biggest contributing factor to current mental status. CT head with possible L JUNIOR BRAND MANAGER infarct, f/u CTA with patent L JUNIOR BRAND MANAGER. Not a candidate for TPA. GCS 10 on admission evaluation. - admit to stroke - seizure, fall precautions - consult to neurology Dr. Guerra, discussed case briefly, will see in AM - consult to palliative care, appreciate assistance with discussing goals of care and prognosis as her clinical course unfolds - consult to EAR MOLD LABORATORY TECHNICIAN for swallow evaluation and cognitive assessment, pending improvement of current mental status - consider MRI pending pt/family goals of care Sepsis 2/2 UTI UA grossly positive. WBC 24. Tachycardia 90. Tachypnea 25. Hemodynamically stable. - f/u urine cx - will continue rocephin, de-escalate abx pending cx results - mIVF at 75 cc/hr, monitor respiratory status given hx heart failure - f/u procalcitonin Acute hypoxic respiratory failure 99% on 2L NC, previously no O2 requirement. Consider aspiration vs less likely volume overload as etiology. - continue to monitor O2 sats, maintain >92% - will wean O2 as tolerated Colon cancer s/p total colectomy Recent surgery due to colon cancer w/perforation due to neoplasm, total alejandro ctomy 08/2020. Prolonged hospital course, recently discharged to [facility] on 09/30/20. - routine colostomy care - consider metastasis as possible contributing factor Hypercalcemia of malignancy May also be contributing factor to current mental status. 11.2 when corrected for albumin. - IV fluids - recheck in AM - consider additional therapy in AM pending f/u calcium, renal function: calcitonin, ZA, lasix, steroids Supraventricular tachycardia Post-operative SVT, was started on amiodarone and instructed to take for 30 days. - held on admission, consider resuming in AM RLE DVT Diagnosed during recent hospitalization 08/2020. - eliquis not resumed on admission due to patient mental status - consider conversion to therapeutic lovenox in AM - will not place SCDs tonight due possible persistent DVT in RLE HTN Normotensive, borderline low BP. - hold home antihypertensives, resume as needed Heart failure Echo 08/2020 with EF 40-45%. Per [facility] chart review, diuretics held on day of admission due to hypotension. - held diuretics on admission due to borderline blood pressure - consider resuming in AM pending volume & respiratory status DVT ppx: see above GI ppx: not indicated CODE: DNAR IVF: LR 75 cc/hr Diet: NPO Dispo: Prognosis is guarded. Discussed with daughter Lashawn Dunn and son Chance Lai. Jointly decided on DNAR code status. FMR H&P: Upper Level - Pertinent history Pt is a 74 yo female with PMH significant for colon cancer with colectomy 09/16 who presents for acute altered mentation. She was AAO x 4 this morning and had an acute event described as a seizure. She had a CT revealing possible stroke vs metastatic lesion. CT in 09/16 did not reveal a lesion but is not as sensitive as an MRI. She was noted to have continued seizure activity and noted during my examination. She has clonus of the R extremity. She otherwise was non-responsive but protecting her airway. She was also noted to have a UTI. Vitals stable Pertinent Exam - nonresponsive, GCS 10, aspirating on exam/rhonchi, does not appear fluid overloaded, RRR - Plan Date/Time: 10/05/20 1632 A/P: Pt will be admitted to neuro floor. Treat UTI with ceftriaxone. Will monitor for resolution of AMS with abx. Stroke and metastatic lesion are in differential with worse prognosis. Discussed findings with Leona (daughter), Chance (son). Discussed poor prognosis if this is stroke vs metastatic lesion. Discussed consideration of hospice of AMS does not resolve. Children are next in line for MPOA - decided as a group she would be DNR. Will discuss case with Neurology. I, Joselo Mendez, have evaluated this patient and agree with findings/plan as outlined by mba intern resident. Pertinent changes/additions are listed here. Addendum - Attending - Attending Attestation Date/Time: 10/05/20 [id number] I personally evaluated the patient and discussed the management with Dr. Ascencio I agree with the History, Examination, Assessment and Plan documented above with any addition or exceptions noted below. Transfered from [facility]. Admit for multiple acute processes. See below. Encephalopathic. Etiology unclear at this time. Infectious vs hypovolemic vs CVA vs status Sepsis due to UTI but concern for bacteremia and surgical/cancer complications. Use low threshold to image abdomen. Will notify surg about admission. Continue IVFs at this time but watch fluid status and needs closely. Culture pending. Continue emperic antibx. If not improving in [address] ESBL coverage. CT concerning for CVA. MRI pending. Consider EEG to make sure not in status. Poor prognosis. Guarded. Notify family. Consult palliative. Yoli
--- NOTE | 2020-10-05 16:53 | CT ---
CT arteriogram neck with IV contrast and 3-D imaging CT arteriogram head with IV contrast and 3-D imaging CT brain with and without IV contrast HISTORY: CVA. Seizure. COMPARISON: Noncontrast exam from earlier on the same date. FINDINGS: There is no evidence of acute intracranial hemorrhage. On the noncontrast study, the subtle area of decreased density at the medial aspect of the left occipital lobe has not changed significantly since the most recent exam. After contrast administration, however, vessels are seen wi thin this area, suggesting that it may represent an old area of infarct. No enhancing brain lesions apparent. Good contrast flow at the aortic arch with normal branching of the great vessels. Good flow into each carotid and vertebral system. No significant plaque. Each internal carotid artery is widely patent. [place] of [place] is intact. Right LUMBER STACKER DRIVER fed primarily from persistent origin right posterior comm unicating artery. Good flow into each cerebral and cerebellar system. No filling defect of the left LUMBER STACKER DRIVER evident. IMPRESSION : No acute abnormalities are demonstrated. Findings were called to Dr. Lam in the emergency department at 1628 hours. Code CR.
[2020-10-05] MEDS ORDERED: cefTRIAXone\\ROCEPHIN 1 GM VIAL ONE (16:57)
[2020-10-05] MEDS ORDERED: Vancomycin 1 GM/200 ML BAG ONE (16:57)
[2020-10-05] MEDS ORDERED: Artificial Tear Sol 15 ML BOT EA EYE PRN (19:43)
[2020-10-05] MEDS: Lactated Ringer's 1,000 ML IV SCH (21:57)
[2020-10-05] MEDS: Pantoprazole 40 MG VIAL IVP SCH (22:00)
[2020-10-06 02:42] VITALS: BMI 27.3
--- NOTE | 2020-10-06 06:04 | PDOC.FM ---
- Subjective Subjective: Patient is sitting upright in bed. Responds with the word no when asked about pain, however when asked other sentences her words are garbled not discernable. Patient's eyes are open and she is tracking my movement. Has continued R clonus of the arm. Squeezes left hand when asked, unable to follow other commands. No concerns overnight. - Objective MAR Reviewed: Yes Vital Signs & Weight: Vital Signs (12 hours) Temp Pulse Resp BP Pulse Ox 10/06/20 01:00 100 10/05/20 20:40 97.8 F 86 20 122/70 100 Weight Weight 69.9 kg Result Diagrams: 10/07/20 07:14 10/06/20 07:08 Phys Exam - Physical Examination alert but not oriented HEENT: PERRLA, moist MMs Respiratory: no wheezing, clear to auscultation bilateral Cardiovascular: RRR, no significant murmur Gastrointestinal: soft, no distention, positive bowel sounds trace nonpitting edema bilaterally squeezed left hand when prompted, however unable to follow other commands R arm clonus Dx/Plan - Plan Plan: This is a 74 y/o F with recent diagnosis of colon cancer who underwent total colectomy after perforation due to neoplasm, who presents with altered mental status. Acute encephalopathy Unclear etiology. DDx includes: stroke, seizure, brain metastasis. May also be metabolic encephalopathy related to UTI, although lower suspicion that this is the biggest contributing factor to current mental status. CT head with possible L MULTI OPERATION MACHINE OPERATOR infarct, f/u CTA with patent L MULTI OPERATION MACHINE OPERATOR. Not a candidate for TPA. GCS 10 on admission evaluation, improvement today, now able to squeeze hand when prompted, eyes open and verbally responding with garbled speech - seizure, fall precautions - consult to neurology Dr. Guerra - will see this am - Brain MRI W and WO contrast ordered, EEG ordered - consult to palliative care, appreciate assistance with discussing goals of care and prognosis as her clinical course unfolds - consult to POURER for swallow evaluation and cognitive assessment, pending improvement of current mental status Sepsis 2/2 UTI UA grossly positive. WBC 24. Tachycardia 90. Tachypnea 25. Hemodynamically stable. Procal 0.31 - f/u urine cx - will continue rocephin, de-escalate abx pending cx results - mIVF at 75 cc/hr, monitor respiratory status given hx heart failure Sacral Decubitus Ulcer - wound care consulted Acute hypoxic respiratory failure 96% on 2L NC, previously no O2 requirement. Consider atelectasis vs aspiration - speech consult - continue to monitor O2 sats, maintain >92% - will wean O2 as tolerated Colon cancer s/p total colectomy Recent surgery due to colon cancer w/perforation due to neoplasm, total colectomy 08/2020. Prolonged hospital course, recently discharged to [facility] on 09/30/20. - routine colostomy care - consider metastasis as possible contributing factor Hypercalcemia of malignancy Ca 11.2 when corrected for albumin. - continue IV fluids - recheck in the am Supraventricular tachycardia Post-operative SVT, was started on amiodarone and instructed to take for 30 days. - held on admission, consider resuming in AM RLE DVT Diagnosed during recent hospitalization 08/2020. - eliquis held due to unable to take PO, started th lovenox HTN Normotensive, borderline low BP. - hold home antihypertensives, resume as needed Heart failure Echo 08/2020 with EF 40-45%. Per [facility] chart review, diuretics held on day of admission due to hypotension. - held diuretics on admission due to borderline blood pressure - consider resuming in AM pending volume & respiratory status DVT ppx: see above GI ppx: not indicated CODE: DNAR IVF: LR 75 cc/hr Diet: NPO Dispo: Prognosis is guarded. GOC was discussed with daughter Lashawn Dunn and son Chance Lai. Jointly decided on DNAR code status on 10/05. Addendum - Attending - Attending Attestation Date/Time: 10/07/201954 I personally evaluated the patient and discussed the management with Dr. Kumar I agree with the History, Examination, Assessment and Plan documented above with any addition or exceptions noted below. Patient with acute event now semicomatose r/o CVA.
[2020-10-06 07:41] LABS: Mean Corpuscular HGB CONC 31.1 g/dL (32.0-36.0); Mean Platelet Volume 7.3 fL (7.4-10.4); Platelet Count 485 thou/uL (130-400); RBC Distribution Width 15.8 % (11.5-14.5); Red Blood Cell (RBC) Count 3.23 mill/uL (4.20-5.40)
[2020-10-06 07:47] LABS: ALT (SGPT) 20 U/L (8-55); AST (SGOT) 17 U/L (5-34); Albumin 2.4 g/dL (3.4-4.8); Alkaline Phosphatase 169 U/L (40-110); Anion Gap 14 mmol/L (10-20); BUN (Urea Nitrogen) 23 mg/dL (9.8-20.1); Bilirubin, Total 0.4 mg/dL (0.2-1.2); Calc. Creatinine Clearance 65 mL/min (70-130); Calcium 9.8 mg/dL (7.8-10.44); Carbon Dioxide 28 mmol/L (23-31); Chloride 103 mmol/L (98-107); Globulin 3.6 g/dL (2.4-3.5); Glucose 79 mg/dL (83-110); Sodium 141 mmol/L (136-145)
[2020-10-06] MEDS ORDERED: Magnevist 469MG/ML 20 ML VIAL ONE (08:35)
[2020-10-06] MEDS ORDERED: Lorazepam 2 MG/ML VIAL SLOW IVP PRN (09:30)
[2020-10-06 09:31] LABS: Band 2 % (5-11); Hypochromia SLIGHT = 6-15 cells (100X) (0-5/hpf); Lymphocytes 8 % (21-51); MDiff Complete? YES; Monocytes 5 % (0-10); Neutrophil 85 % (42-75); Ovalocytes SLIGHT = 2-5 cells (100X) (0-1/hpf); Platelet Morphology Comment Appears Increased; Polychromasia SLIGHT = 2-3 cells (100X) (0-2/hpf)
--- NOTE | 2020-10-06 09:33 | CON ---
DATE OF CONSULTATION: 10/06/2020 CONSULTING PHYSICIAN: Hospitalist Service. IMPRESSION: 1. 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 2. Possible sepsis. PLAN: Loading dose of Keppra followed by maintenance dose. Continue Eliquis. HISTORY OF PRESENT ILLNESS: Ms. Lai is a 74-year-old woman, who came in yesterday after being witnessed to have a seizure. Her CT and CT angiogram showed what appeared to be an old left occipital stroke. She was very lethargic when first evaluated since last night. She is awaken, but has had some persistent right upper extremity jerking movements. Her workup otherwise was notable for a white count of 24,000, hemoglobin of 10. Comprehensive metabolic panel was unremarkable. Her prolactin level was normal at 23. PAST HISTORY: Colon cancer, hypertension, DVT, SVT. ALLERGIES: SULFA. MEDICATIONS: Include Eliquis. Past echocardiogram showed a 40% to 45% ejection fraction. REVIEW OF SYSTEMS: Ten-system review of systems is otherwise unremarkable. PHYSICAL EXAMINATION: GENERAL: She is a well-nourished elderly lady, lying in bed, appearing to be a little lethargic. HEENT: Pupils are equal. Conjunctivae are clear. Eyes are conjugate. Oropharynx was clear. NECK: No lymphadenopathy noted. ABDOMEN: Soft and nontender. SKIN: Unremarkable. EXTREMITIES: There is some peripheral edema in both legs. NEUROLOGIC: She appeared to be awake. Her speech was a bit difficult to understand at times. There was no facial asymmetry. I did not elicit visual field deficit, though her cooperation was limited. There was extensor posturing of the right arm with flexion of the hand. There was some rhythmic jerking that was low amplitude and low frequency. Sensation was grossly intact. Plantar response was upgoing on the right, down on the left. Gait was not tested. SUMMARY: This elderly lady with a past stroke and is currently on Eliquis. She is having some focal seizures, and I would go ahead and start her on Keppra. I do not see any need for further vascular workup. It seems to be complete at this point. Job ID: [id number]
[2020-10-06] MEDS: levETIRAcetam in NS 1,000 MG in Premix Bag 1 BAG IVPB SCH ×2 (10:50→11:25)
[2020-10-06] MEDS: Lactated Ringer's 1,000 ML IV SCH ×2 (10:57→22:18)
[2020-10-06] MEDS ORDERED: Amiodarone 200 MG TAB PO SCH (12:15)
--- NOTE | 2020-10-06 14:06 | MRI ---
MRI BRAIN WITH AND WITHOUT CONTRAST: DATE: 10/06/2020 HISTORY: 74-year-old female with seizure and acute altered mental status COMPARISON: None TECHNIQUE: Multiplanar, multisequence MRI of the brain performed pre- and post-IV injection of gadolinium based contrast agent. FINDINGS: Images degraded by asymmetrical positioning, and patient motion. There is a patchy, moderate size gyriform, approximately 4.5 x 1.5 x 1.5 cm left medial occipital reg ion of serpentine enhancement with hyperintense signal intensity on FLAIR and T2 WI, representing an infarction. It has mildly restricted diffusion. No other regions of restricted diffusion. Ventricles are normal in size and configuration. No evidence of recent or remote major intra-axial hemorrhage. No mass effect, midline shift, or extra-axial fluid collection. IMPRESSION: moderate size left occipital subacute infarction in left posterior cerebral artery territory
[2020-10-06] MEDS ORDERED: cefTRIAXone\\ROCEPHIN 1 GM in Sodium Chloride 0.9% 100 ML IVPB SCH (17:00)
[2020-10-06] MEDS ORDERED: Aspirin 81 mg Enteric Coated Tablet PO SCH (17:30)
--- NOTE | 2020-10-06 18:47 | EEG ---
DATE OF SERVICE: DESCRIPTION OF THE RECORD: Waking background is a low amplitude, 8 to 9 hertz alpha frequency. There is fairly persistent sharp and slow wave discharges occurring approximately 1 per second in the left occipital area. There was some spread across the hemisphere, although it is predominantly occipital in location. Photic stimulation was unremarkable. No sleep was seen. IMPRESSION: This is an abnormal study for the findings of persistent periodic epileptiform discharges in the left occipital region. This appears consistent with focal seizure activity. Job ID: [id number]
[2020-10-06] MEDS ORDERED: Apixaban 5 MG TAB PO SCH (21:00)
[2020-10-06] MEDS: levETIRAcetam in NS 500 MG in Premix Bag 1 BAG IVPB SCH (22:08)
[2020-10-06] MEDS: Enoxaparin Sodium 80 MG/0.8 ML SYRINGE SC SCH (22:08)
[2020-10-06] MEDS: Pantoprazole 40 MG VIAL IVP SCH (22:09)
[2020-10-07 07:35] LABS: Hemoglobin 8.3 g/dL (12.0-16.0); Mean Corpuscular HGB CONC 30.9 g/dL (32.0-36.0); Mean Corpuscular Hemoglobin 28.4 pg (27.0-31.0); Mean Corpuscular Volume 92.2 fL (78.0-98.0); Mean Platelet Volume 7.2 fL (7.4-10.4); Platelet Count 376 thou/uL (130-400); RBC Distribution Width 15.7 % (11.5-14.5); Red Blood Cell (RBC) Count 2.93 mill/uL (4.20-5.40); White Blood Cell (WBC) Count 17.8 thou/uL (4.8-10.8)
[2020-10-07] MEDS: Amiodarone 200 MG TAB PO SCH (07:58)
[2020-10-07] MEDS: Aspirin 81 mg Enteric Coated Tablet PO SCH (07:59)
--- NOTE | 2020-10-07 08:03 | RAD ---
RADIOGRAPH CHEST 1 VIEW: DATE: 10/07/2020 TIME: 7:36 AM HISTORY: 74-year-old female with abnormal breath sounds: Basilar Rales COMPARISON: 10/05/2020 FINDINGS: Patient is again kyphotic, and lungs are hypoinflated, making this a limited study. There is progress ion of pulmonary densities at the left base, now with complete silhouetting of the left hemidiaphragm, and effacement of left lateral costophrenic angle. This extends into the left perihila r region. No pulmonary edema or pneumothorax. IMPRESSION: Interval worsening of left lower lobe consolidation with possible left pleural effusion.
[2020-10-07] MEDS ORDERED: Furosemide 20 MG/2 ML VIAL SLOW IVP SCH ×2 (09:00→14:30)
[2020-10-07] MEDS: Enoxaparin Sodium 80 MG/0.8 ML SYRINGE SC SCH ×2 (09:05→21:49)
[2020-10-07] MEDS: Dextrose 5%-Lactated Ringers 1,000 ML IV SCH (09:06)
[2020-10-07] MEDS: levETIRAcetam in NS 500 MG in Premix Bag 1 BAG IVPB SCH ×2 (09:07→20:45)
[2020-10-07 09:11] LABS: Band 2 % (5-11); Hypochromia SLIGHT = 6-15 cells (100X) (0-5/hpf); Lymphocytes 9 % (21-51); MDiff Complete? YES; Monocytes 3 % (0-10); Neutrophil 86 % (42-75); Platelet Morphology Comment Appears Adequate; Polychromasia SLIGHT = 2-3 cells (100X) (0-2/hpf)
--- NOTE | 2020-10-07 09:33 | PDOC.FM ---
- Subjective Subjective: Patient is sitting upright in bed. When asked how she felt, responded "I feel good.". When asked about pain, responded "no" however when asked other sentences her words were garbled and not understandable. Patient's eyes are open and she is tracking my movement. Has continued R clonus of the arm, although improved from yesterday. Lightly squeezes both hands when asked, unable to follow other commands. - Objective MAR Reviewed: Yes Vital Signs & Weight: Vital Signs (12 hours) Temp Pulse Resp BP BP Pulse Ox 10/07/20 09:02 98 F 92 20 116/61 93 L 10/07/20 03:52 99.0 F 84 23 H 113/57 L 96 10/07/20 01:26 97 10/06/20 23:47 97.8 F 87 25 H 102/52 L 86 L 10/06/20 22:04 98.0 F 92 14 111/57 L 97 Weight Admit Weight 69.9 kg Weight 69.853 kg I&O: 10/06/20 10/07/20 10/08/20 06:59 06:59 06:59 Intake Total 660 Output Total 900 Balance -240 Result Diagrams: 10/07/20 07:14 10/06/20 07:08 Phys Exam - Physical Examination alert but not oriented HEENT: PERRLA, moist MMs Bibasilar rackles Cardiovascular: RRR, no significant murmur Gastrointestinal: soft, non-tender, positive bowel sounds trace edema responded with full sentence, however other speech garbled clonus in R arm improved, follows a few commands Skin: no rash Dx/Plan - Plan Plan: This is a 74 y/o F with recent diagnosis of colon cancer who underwent total colectomy after perforation due to neoplasm, who presents with altered mental status. Acute encephalopathy 2/[address] head with possible L APPLIANCE SALES ASSOCIATE infarct, f/u CTA with patent L APPLIANCE SALES ASSOCIATE. GCS 10 on admission Patient has improved, able to form a few sentences with mixed in garbled speech, follows some commands, R arm clonus improved MRI Brain: Moderate size L occipital subacute infarction in L posterior cerebral artery territory EEG: Findings of perisistent periodic epileptiform discharges in the left occipital region. C/w Seizure activity - consult to neurology Dr. Guerra - shawn Charlton for seizures, appreciate recs - consult to palliative care, appreciate assistance with discussing goals of care and prognosis as her clinical course unfolds - consult to RAIL CAR REPAIRMAN for swallow evaluation and cognitive assessment - NIH stroke checks, fall precautions Sepsis 2/2 UTI UA grossly positive. WBC 24. Tachycardia 90. Tachypnea 25. Hemodynamically stable. Procal 0.31 UCx showed citrobacter freundii >100k; Resistant to Rocephin, Susceptible to Cefepime - Rocephin stopped, started Cefepime - mIVF at D5LR at 50 cc/hr, monitor respiratory status given hx heart failure LLL Consolidation and mild pleural effusion Repeated CXR today after worsening lung exam - showed worsening LLL Consolidation, appears fluid overloaded - will give 1x dose 10 mg IVP lasix - decreased mIVFs to D5LR @ 50cc/hr - continue to monitor respiratory status Sacral Decubitus Ulcer - wound care managing Acute hypoxic respiratory failure 96% on 3L NC, previously no O2 requirement, suspected d/t fluid overload vs aspiration - lasix as above, decreased mIVFs - speech consult pending - continue to monitor O2 sats, maintain >92% - will wean O2 as tolerated Colon cancer s/p total colectomy Recent surgery due to colon cancer w/perforation due to neoplasm, total colectomy 08/2020. Prolonged hospital course, recently discharged to [facility] bed on 09/30/20. - routine colostomy care - consider metastasis as possible contributing factor Hypercalcemia of malignancy Ca 11.2 when corrected for albumin. - continue IV fluids - recheck in the am Supraventricular tachycardia Post-operative SVT, was started on amiodarone and instructed to take for 30 days. - held on admission, restart today pending speech eval RLE DVT Diagnosed during recent hospitalization 08/2020. - eliquis held due to unable to take PO, started th lovenox HTN Normotensive, borderline low BP. - hold home antihypertensives, resume as needed Heart failure Echo 08/2020 with EF 40-45%. Per [place] chart review, diuretics held on day of admission due to hypotension. - held diuretics on admission due to borderline blood pressure - consider resuming in AM pending response to one time IV lasix dose today DVT ppx: see above GI ppx: not indicated CODE: DNAR IVF: D5LR @ 50cc/hr Diet: NPO, pending speech eval Dispo: Prognosis is guarded. GOC was discussed with daughter Lashawn Dunn and son Chance Lai. Jointly decided on DNAR code status on 10/05. Addendum - Attending - Attending Attestation Date/Time: 10/07/201945 I personally evaluated the patient and discussed the management with Dr. Kumar I agree with the History, Examination, Assessment and Plan documented above with any addition or exceptions noted below.
[2020-10-07 09:42] LABS: Hemoglobin A1c 4.9 % (4.0-6.0)
[2020-10-07 09:55] LABS: Cardiac Risk 2.9 (Less than 4.5)
[2020-10-07] MEDS: Cefepime 1 GM in Sodium Chloride 0.9% 100 ML IVPB SCH ×2 (10:28→20:37)
[2020-10-07] MEDS ORDERED: Amiodarone 450 MG, Admixture Fee 1 EACH in Dextrose 5% in Water 250 ML IVPB SCH (17:45)
[2020-10-07] MEDS: Pantoprazole 40 MG VIAL IVP SCH (20:46)
--- NOTE | 2020-10-08 06:56 | PDOC.FM ---
- Subjective Subjective: Pt awakens upon entry to room oriented to person and place only no acute overnight events - Objective MAR Reviewed: Yes Vital Signs & Weight: Vital Signs (12 hours) Temp Pulse Resp BP Pulse Ox 10/08/20 04:00 97.5 F L 89 125/63 99 10/08/20 00:00 98.2 F 99 16 124/70 93 L 10/07/20 20:00 98.1 F 98 117/58 L 94 L Weight Admit Weight 69.9 kg Weight 69.853 kg I&O: 10/06/20 10/07/20 10/08/20 06:59 06:59 06:59 Intake Total 660 965 Output Total 900 950 Balance -240 15 Result Diagrams: 10/07/20 07:14 10/06/20 07:08 Phys Exam - Physical Examination resting comfortably. gargles as she breathes with secretions in airway HEENT: moist MMs, sclera anicteric Neck: supple slight bibasilar crackles, gargled speech with increased oral secretions Cardiovascular: RRR, no significant murmur Gastrointestinal: soft, non-tender, positive bowel sounds Musculoskeletal: pulses present, edema present (BLE trace pitting edema ) oriented to person and place only. Skin: no rash, normal turgor Dx/Plan (1) UTI (urinary tract infection) Status: Acute (2) Cerebrovascular accident (CVA) due to occlusion of left posterior cerebral artery Code(s): I63.532 - CEREB INFRC D/T UNSP OCCLS OR STENOS OF LEFT POST CEREB ART Status: Acute - Plan Plan: Acute encephalopathy 2/[address] head with possible L GRANITE WORKER infarct, f/u CTA with patent L GRANITE WORKER. GCS 10 on admiss ion Patient has improved, able to form a few sentences with mixed in garbled speech, follows some commands, R arm clonus improved MRI Brain: Moderate size L occipital subacute infarction in L posterior cerebral artery territory EEG: Findings of persistent periodic epileptiform discharges in the left occipital region. C/w Seizure activity - consult to neurology Dr. Guerra - shawn Charlton for seizures, appreciate recs - consult to palliative care, appreciate assistance with discussing goals of ca re and prognosis as her clinical course unfolds - consult to ROTARY ENGINE ASSEMBLER for swallow evaluation and cognitive assessment - NIH stroke checks, fall precautions - Speech therapy recommending NPO. will discuss care goals with family today. Sepsis 2/2 UTI UA grossly positive. WBC 24. Tachycardia 90. Tachypnea 25. Hemodynamically stable. Procal 0.31 UCx showed citrobacter freundii >100k; Resistant to Rocephin, Susceptible to Cefepime - Rocephin stopped, started Cefepime - mIVF at D5LR at 50 cc/hr, monitor respiratory status given hx heart failure LLL Consolidation and mild pleural effusion Repeated CXR today after worsening lung exam - showed worsening LLL Consolidation, appears fluid overloaded - will give 1x dose 10 mg IVP lasix - decreased mIVFs to KVO. - continue to monitor respiratory status Sacral Decubitus Ulcer - wound care managing Acute hypoxic respiratory failure, improved with O2 96% on 3L NC, previously no O2 requirement, suspected d/t fluid overload vs aspiration - lasix as above, decreased mIVFs - speech consult pending - continue to monitor O2 sats, maintain >92% - will wean O2 as tolerated - turned IVF to KVO Colon cancer s/p total colectomy Recent surgery due to colon cancer w/perforation due to neoplasm, total colectomy 08/2020. Prolonged hospital course, recently discharged to [facility] bed on 09/30/20. - routine colostomy care - consider metastasis as possible contributing factor Hypercalcemia of malignancy Ca 11.2 when corrected for albumin. Supraventricular tachycardia Post-operative SVT, was started on amiodarone and instructed to take for 30 days. - held on admission, will consider restart if speech clears her for swallow RLE DVT Diagnosed during recent hospitalization 08/2020. - eliquis held due to unable to take PO, started th lovenox HTN Normotensive, borderline low BP. - hold home antihypertensives, resume as needed Heart failure Echo 08/2020 with EF 40-45%. Per [place] chart review, diuretics held on day of admission due to hypotension. - held diuretics on admission due to borderline blood pressure - consider resuming in AM pending response to one time IV lasix dose today DVT ppx: see above CODE: DNAR IVF: KVO Diet: NPO, per speech recs. Dispo: Prognosis is guarded. GOC was discussed with daughter Lashawn Dunn and son Chance Lai. Jointly decided on DNAR code status on 10/05. Addendum - Attending - Attending Attestation Date/Time: 10/08/20 5542 I personally evaluated the patient and discussed the management with Dr. Holliday. I agree with the History, Examination, Assessment and Plan documented above with any addition or exceptions noted below.
[2020-10-08] MEDS ORDERED: Dextrose 5%-Lactated Ringers 1,000 ML IV SCH (08:15)
[2020-10-08] MEDS ORDERED: DEXTROSE 5% IVPB SCH (09:00)
[2020-10-08] MEDS ORDERED: WATER IVPB SCH (09:00)
[2020-10-08] MEDS ORDERED: AMIODARONE IVPB SCH (09:00)
[2020-10-08] MEDS: Cefepime 1 GM in Sodium Chloride 0.9% 100 ML IVPB SCH ×2 (09:41→21:26)
[2020-10-08] MEDS: levETIRAcetam in NS 500 MG in Premix Bag 1 BAG IVPB SCH ×2 (09:41→21:25)
[2020-10-08] MEDS: Amiodarone 200 MG TAB PO SCH (09:41)
[2020-10-08] MEDS: Aspirin 81 mg Enteric Coated Tablet PO SCH (09:41)
[2020-10-08] MEDS: Enoxaparin Sodium 80 MG/0.8 ML SYRINGE SC SCH ×2 (09:42→21:26)
[2020-10-08] MEDS: Dextrose 5%-Lactated Ringers 1,000 ML IV SCH (09:55)
[2020-10-08] MEDS ORDERED: Furosemide 20 MG/2 ML VIAL SLOW IVP SCH (11:15)
--- NOTE | 2020-10-08 11:34 | PDOC.EEG ---
Neurology EEG Report - Report Report: FOLLOW UP EEG This EEG was performed using 24 channel Myla video EEG machine with 24 disc electrodes. This was an extended 2 hours 6 minutes of inpatient video EEG recording. Digital analysis of the EEG was done for spike and seizure detection which revealed no abnormalities. Background: There is a posterior background rhythm is 8-9 Hz. Minimal reactivity with eye opening and closure. Hyperventilation: Not performed. Photic Stimulation: No significant response. Sleep: No stage change is observed. Spells: None EEG Diagnosis: Generalized irregular theta activity with occasional sharps and sharply contoured delta in the left occipital region. Nonsustained posterior background rhythm. Clinical Interpretation: This EEG is consistent with interictal expression of partial epilepsy in the setting of moderate generalized nonspecific cerebral dysfunction. No elec trographic seizures captured during the recording. There is interval improvement since the prior study.
--- NOTE | 2020-10-08 14:38 | PDOC.NEUPN ---
- Subjective Encounter Date: 10/08/20 Subjective: Ms Mendoza is awake and follows commands intermittently - Objective Vital Signs & Weight: Vital Signs (12 hours) Temp Pulse Resp BP Pulse Ox 10/08/20 11:44 97.5 F L 97 22 H 135/72 93 L 10/08/20 08:00 99 10/08/20 07:57 97.2 F L 85 16 136/64 99 10/08/20 04:00 97.5 F L 89 125/63 99 Weight Admit Weight 154 lb 1.648 oz Weight 154 lb I&O: 10/07/20 10/08/20 10/09/20 06:59 06:59 06:59 Intake Total 660 965 Output Total 900 950 Balance -240 15 Result Diagrams: 10/07/20 07:14 10/06/20 07:08 Radiology Reviewed by me: Yes EKG Reviewed by me: Yes ROS - Review of Systems ROS unobtainable: due to mental status Neurological: reports: weakness, numbness, incoordination, change in speech, confusion - Medication Medications: Active Medications Generic Name Dose Route Start Last Admin Trade Name Shayq PRN Reason Stop Dose Admin Amiodarone HCl 400 mg 10/07/20 09:00 10/08/20 09:41 Amiodarone 200 Mg Tab PO Not Given QAM CAMRON Aspirin 81 mg 10/07/20 09:00 10/08/20 09:41 Aspirin 81 Mg Enteric Coated Tablet PO Not Given DAILY CAMRON Enoxaparin Sodium 70 mg 10/06/20 21:00 10/08/20 09:42 Enoxaparin Sodium 80 Mg/0.8 Ml Syringe SC 70 mg 0900,2100 CAMRON Administration Levetiracetam 500 mg/ Device 100 mls @ 200 mls/hr 10/06/20 21:00 10/08/20 09:41 IVPB 100 mls BID CAMRON Administration Cefepime HCl 1 gm/ Sodium 100 mls @ 200 mls/hr 10/07/20 09:00 10/08/20 09:41 Chloride IVPB 100 mls Q12HR CAMRON Administration Dextrose/Lactated Ringer's 1,000 mls @ 0 mls/hr 10/08/20 08:15 10/08/20 09:48 D5 Lr IV 1,000 mls .Q0M CAMRON Administration KVO Lorazepam 1 mg 10/06/20 09:30 10/06/20 11:52 Lorazepam 2 Mg/Ml Vial SLOW IVP 1 mg Q4H PRN Administration Seizures Pantoprazole Sodium 40 mg 10/05/20 21:00 10/07/20 20:46 Pantoprazole 40 Mg Vial IVP 40 mg HS CAMRON Administration Sodium Chloride 10 ml 10/05/20 18:59 10/06/20 23:04 Flush - Normal Saline 10 Ml Syringe IVF 10 ml PRN PRN Administration Saline Flush - Exam General Appearance: NAD Eye: PERRL ENT: normocephalic atraumatic Neck: supple Respiratory: CTAB Cardiovascular: RRR Gastrointestinal: soft Extremities: no cyanosis Skin: normal turgor Neurological: facial droop, hemiplegia, speech deficit Musculoskeletal: normal tone PSYCH: normal affect, normal behavior, not oriented Results - Labs Result Diagrams: 10/07/20 07:14 10/06/20 07:08 Lab results: WBC 17.8 thou/uL (4.8-10.8) H 10/07/20 07:14 Hgb 8.3 g/dL (12.0-16.0) L 10/07/20 07:14 Hct 27.0 % (36.0-47.0) L 10/07/20 07:14 MCV 92.2 fL (78.0-98.0) 10/07/20 07:14 Plt Count 376 thou/uL (130-400) 10/07/20 07:14 Band Neuts % (Manual) 2 % (5-11) L 10/07/20 07:14 Sodium 141 mmol/L (136-145) 10/06/20 07:08 Potassium 4.0 mmol/L (3.5-5.1) 10/06/20 07:08 Chloride 103 mmol/L (98-107) 10/06/20 07:08 Carbon Dioxide 28 mmol/L (23-31) 10/06/20 07:08 BUN 23 mg/dL (9.8-20.1) H 10/06/20 07:08 Creatinine 0.81 mg/dL (0.6-1.1) 10/06/20 07:08 Glucose 79 mg/dL (83-110) L 10/06/20 07:08 Lactic Acid 0.9 mmol/L (0.5-2.2) 10/05/20 15:48 Calcium 10.0 mg/dL (7.8-10.44) 10/07/20 06:35 Total Bilirubin 0.4 mg/dL (0.2-1.2) 10/06/20 07:08 AST 17 U/L (5-34) 10/06/20 07:08 ALT 20 U/L (8-55) 10/06/20 07:08 Alkaline Phosphatase 169 U/L (40-110) H 10/06/20 07:08 B-Natriuretic Peptide 48.6 pg/mL (0-100) 10/05/20 15:48 Serum Total Protein 6.0 g/dL (6.0-8.3) 10/06/20 07:08 Albumin 2.4 g/dL (3.4-4.8) L 10/06/20 07:08 Urine Ketones Trace mg/dL (Negative) A 10/05/20 15:35 Urine Blood Large (Negative) A 10/05/20 15:35 Urine Nitrite Positive (Negative) A 10/05/20 15:35 Ur Leukocyte Esterase Moderate (Negative) H 10/05/20 15:35 Urine RBC Greater than 50 HPF (0-3) A 10/05/20 15:35 Urine WBC Greater Than 50 HPF (0-3) A 10/05/20 15:35 Ur Squamous Epith Cells 0-3 HPF (0-3) 10/05/20 15:35 Urine Bacteria 4+ HPF (None Seen) A 10/05/20 15:35 - Radiology Interpretation CT scan - head Additional Comment: CT head with possible L PRETZEL PACKER infarct MRI - head Additional Comment: Moderate size left occipital subacute infarction in left posterior cerebral artery territory PN A/P (1) Partial seizure disorder Code(s): G40.109 - LOCAL-REL SYMPTC EPI W SIMP PRT SEIZ,NOT NTRCT, W/O STAT EPI Status: Acute (2) Cerebrovascular accident (CVA) due to occlusion of left posterior cerebral artery Code(s): I63.532 - CEREB INFRC D/T UNSP OCCLS OR STENOS OF LEFT POST CEREB ART Status: Acute (3) UTI (urinary tract infection) Status: Acute (4) Colon adenocarcinoma Code(s): C18.9 - MALIGNANT NEOPLASM OF COLON, UNSPECIFIED Status: Acute (5) Perforated bowel Code(s): K63.1 - PERFORATION OF INTESTINE (NONTRAUMATIC) Status: Acute - Plan Daily Plan: PT/OT, speech therapy, DVT proph w/SCDs Mrs. Will is a 74-year-old female who was consulted for stroke and altered mental status. Patient also has clinical seizures characterized by right arm rhythmic shaking. Patient speech is also improved today and she is follow able to follow commands intermittently EEG from 10/06/2020 reviewed which showed persistent. Headache epileptiform discharges emanating from the left occipital region consistent with seizures most likely secondary to stroke which is the seizure focus. Keppra initiated which did resolve the epileptiform discharges and no rhythmic right arm shaking was evident on exam. Follow-up EEG today showed resolution of epileptiform discharges so continue Keppra 500 mg twice daily. Observe seizure precautions. Ativan 2 mg IV for seizure greater than 2 minutes. Neurochecks every [address] head with possible left PRETZEL PACKER infarction , f/u CTA with patent left PRETZEL PACKER MRI Brain: Moderate size L occipital subacute infarction in L posterior cerebral artery territory Telemetry to rule out arrhythmias. 2D echo to evaluate for left ventricular ejection fraction. Consider rectal aspirin till cleared by speech. Start high intensity statin once cleared by speech Continue home medications. Palliative care consult to discuss the discharge goals Continue medical management per primary team. Plan discussed with the nursing staff.
--- NOTE | 2020-10-08 16:39 | PQF ---
CLINICAL DOCUMENTATION CLARIFICATION FORM: Dear Dr. Holliday/ Attending Dr. Hernandez Date: 10/08/2020 Please exercise your independent, professional judgment in responding to the clarification form. Clinical indicators are provided on the bottom of this form for your review. Please check appropriate box(es): [ ] Concur with Wound Care Assessment findings. POA: [ * ] Yes Left buttock Pressure Ulcer Stage III In addition, please specify: Present on Admission (POA): [ * ] Yes For continuity of documentation, please document condition throughout progress notes and discharge summary. Thank You. To be completed by CDI/Coding staff for physician review: CLINICAL INDICATORS - SIGNS / SYMPTOMS / LABS / RSULTS AND LOCATION IN MR *10/06 pn (Kumar) Sacral decubitus ulcer. *Wound Care Assessment 06/06: Left buttock Pressure Ulcer Stage III RISK FACTORS / RSULTS AND LOCATION IN MR H&P 10/05 (Rehg) A/P: 74 yo F with recent dx of colon cancer who underwent total colectomy after perforation due to neoplasm. RLE DVT. Heart failure. TREATMENTS / RSULTS AND LOCATION IN MR *10/06 pn (Kumar): wound care consulted *Wound Care Assessment 06/06: Recommendations: Follow Nursing Wound Care Protocol Specialty bed: Low Air Loss Mattress Pre-ulcer skin changes limited to persistent focal edema (Stage 1) Abrasion, blister, partial thickness skin loss involving epidermis and/or dermis (Stage 2) Full thickness skin loss involving damage or necrosis of SQ tissue. (Stage 3) Necrosis of soft tissue through to underlying muscle, tendon, or bone. (Stage 4) Purple or maroon discolored skin or blood filled blister PRESSURE ULCER STAGES Stage I: Erythema Stage II: Partial thickness Stage III: Full thickness Stage IV: Necrosis to muscle/bone Thank you, Marina Gottlieb RN, BSN [email or web address] This is a permanent part of the Medical Record [facility]
[2020-10-08] MEDS: Pantoprazole 40 MG VIAL IVP SCH (21:27)
--- NOTE | 2020-10-09 07:41 | PDOC.FM ---
- Subjective Subjective: Pt's care was transitioned to hospice care after family meeting on 10/08. [facility] lmeet with fmjosey this morning @ 9 AM for further arrangements. Pt is tachycardic upon exam and febrile 100.8 initiated a 500 ml D5LR bolus and VT tylenol. Pt yeung snot respond to commands today and yeung snot speak. awakens to voice. - Objective MAR Reviewed: Yes Vital Signs & Weight: Vital Signs (12 hours) Pulse Ox 10/09/20 05:20 100 10/08/20 20:00 100 Weight Admit Weight 69.9 kg Weight 69.853 kg I&O: 10/08/20 10/09/20 10/10/20 06:59 06:59 06:59 Intake Total 965 Output Total 950 675 Balance 15 -675 Result Diagrams: 10/07/20 07:14 10/09/20 08:11 Phys Exam - Physical Examination non-verbal, does not respond to commands. dry MM. opens eyes spontaneously Neck: no JVD, supple diffuse coarse rhonichi auscultated tachycardic Gastrointestinal: soft, no distention Musculoskeletal: no edema, pulses present folcal jerking involuntary movement of RUE Deviation from normal: non-verbal, does not follow commands Skin: no rash Dx/Plan (1) UTI (urinary tract infection) Status: Acute (2) Cerebrovascular accident (CVA) due to occlusion of left posterior cerebral artery Code(s): I63.532 - CEREB INFRC D/T UNSP OCCLS OR STENOS OF LEFT POST CEREB ART Status: Acute - Plan Plan: Acute encephalopathy 2/[address] head with possible L DIE FILER infarct, f/u CTA with patent L DIE FILER. GCS 10 on ad mission MRI Brain: Moderate size L occipital subacute infarction in L posterior cerebral artery territory EEG: Findings of persistent periodic epileptiform discharges in the left occipital region. C/w Seizure activity - consult to neurology Dr. Guerra - added Keppra for seizures, appreciate recs f/u EEG: improvement in seizure activity, continue keppra 500 mg bid. - consult to palliative care, care plan meeting with family on 10/08. Decision to move forward with hospice transfer of care. Further meeting to set up care on 10/09. - consult to SAND CONDITIONER for swallow evaluation: recommending NPO. Family does not think pt desires feeding tube. - NIH stroke checks, fall precautions Sepsis 2/2 UTI UA grossly positive. WBC 24. Tachycardia 90. Tachypnea 25. Hemodynamically sta ble. Procal 0.31 UCx showed citrobacter freundii >100k; Resistant to Rocephin, Susceptible to Cefepime - Rocephin stopped, started Cefepime - mIVF at D5LR at 50 cc/hr decreased to KVO open on 10/08, monitor respiratory and fluid status given hx heart failure - Pt tachycardic and febrile AM of 10/09. gave tylenol VT and 500 mL D5LR bolus. Hypernatremia - most likely hypovolemic - gave D5LR 500 mL bolus order. LLL Consolidation and mild pleural effusion Repeated CXR1/10 after worsening lung exam - showed worsening LLL Consolidation, appears fluid overloaded - restarted home dose of lasix @ 20 mg IV once daily. - decreased mIVFs to KVO. - continue to monitor respiratory status Stage III L gluteal decubitus pressure ulcer. - wound care managing, refer to documentation for further details. Acute hypoxic respiratory failure, improved 96% on 3L NC on admission. previously no O2 requirement, suspected d/t fluid overload vs aspiration - lasix as above, decreased mIVFs - speech consult pending - continue to monitor O2 sats, maintain >92% - will wean O2 as tolerated Colon cancer s/p total colectomy Recent surgery due to colon cancer w/perforation due to neoplasm, total colectomy 08/2020. Prolonged hospital course, recently discharged to [facility] bed on 09/30/20. - routine colostomy care - consider metastasis as possible contributing factor Hypercalcemia of malignancy Ca 11.2 when corrected for albumin. Supraventricular tachycardia Post-operative SVT, was started on amiodarone and instructed to take for 30 days. - held on admission, will consider restart if speech clears her for swallow RLE DVT Diagnosed during recent hospitalization 08/2020. - eliquis held due to unable to take PO, started th lovenox HTN Normotensive, borderline low BP. - hold home antihypertensives, resume as needed Heart failure Echo 08/2020 with EF 40-45%. Per [place] chart review, diuretics held on day of admission due to hypotension. - held diuretics on admission due to borderline blood pressure - consider resuming in AM pending response to one time IV lasix dose today DVT ppx: see above CODE: DNAR IVF: KVO Diet: NPO, per speech recs. Dispo: Prognosis is guarded. GOC was discussed with daughter Lashawn Dunn and son Chance Lai. Jointly decided on DNAR code status on 10/05. Transfer of care to hospice planned from family discussion on 10/08. Pending transfer to [facility] hospice 10/09. Addendum - Attending - Attending Attestation Date/Time: 10/09/20 1050 I personally evaluated the patient and discussed the management with Dr. Holliday. I agree with the History, Examination, Assessment and Plan documented above with any addition or exceptions noted below.
[2020-10-09 07:54] VITALS: BP 114/58; TEMP 100.8
[2020-10-09 08:39] LABS: Anion Gap 14 mmol/L (10-20); BUN (Urea Nitrogen) 13 mg/dL (9.8-20.1); Calc. Creatinine Clearance 82 mL/min (70-130); Calcium 10.1 mg/dL (7.8-10.44); Carbon Dioxide 28 mmol/L (23-31); Chloride 112 mmol/L (98-107); Glucose 99 mg/dL (83-110); Potassium 3.3 mmol/L (3.5-5.1); Sodium 151 mmol/L (136-145)
[2020-10-09] MEDS ORDERED: Acetaminophen 650 MG Suppository PR PRN (08:52)
[2020-10-09] MEDS ORDERED: Furosemide 20 MG/2 ML VIAL SLOW IVP SCH (09:00)
[2020-10-09] MEDS: Aspirin 81 mg Enteric Coated Tablet PO SCH (10:06)
[2020-10-09] MEDS: Amiodarone 200 MG TAB PO SCH (10:06)
[2020-10-09] MEDS: levETIRAcetam in NS 500 MG in Premix Bag 1 BAG IVPB SCH (10:07)
[2020-10-09] MEDS: Enoxaparin Sodium 80 MG/0.8 ML SYRINGE SC SCH (10:07)
[2020-10-09] MEDS: Cefepime 1 GM in Sodium Chloride 0.9% 100 ML IVPB SCH (10:07)
--- NOTE | 2020-10-10 02:20 | DIS ---
DATE OF ADMISSION: 10/05/2020 DATE OF DISCHARGE: 10/09/2020 RESIDENT: Lori Holliday DO. ADMITTING ATTENDING: Malaika Abdullahi MD DISCHARGE ATTENDING: Michael Hernandez MD CONSULTS: 1. Neurology, Dr. Yoo. 2. Case Management. 3. PT/OT eval and treat. 4. Palliative Care. 5. PT eval. 6. Wound Care. 7. Hospice. PROCEDURES PERFORMED: CT am[facility] of [place] angio with contrast on 10/05, no acute abnormalities demonstrated. Brain MRI on 10/06 showed moderate-sized left occipital subacute infarction in the left posterior cerebral artery territory. EEG on 10/06 showed abnormal study for the findings of persistent periodic epileptiform discharges in the left occipital region. This appears to be consistent with focal seizure activity. EEG on 10/08 showed that it was consistent with interictal expression of partial epilepsy in the setting of moderate generalized nonspecific cerebral dysfunction. No electrographic seizures captured during this recording. There is interval improvement since the prior study stated by Dr. Harrell. DIAGNOSES: 1. Acute encephalopathy secondary to left posterior cerebral artery acute infarction. 2. Sepsis secondary to urinary tract infection from bacteria, Citrobacter freundii. 3. Hypernatremia. 4. Left lower lobe consolidation and pleural effusions. 5. Stage III left gluteal decubitus pressure ulcer. Refer to wound care documentation for further details. 6. Acute hypoxic respiratory failure. 7. Colon cancer, status post total colectomy. 8. Hypercalcemia malignancy. 9. Supraventricular tachycardia history. 10. Right lower extremity deep venous thrombosis, on chronic anticoagulation therapy. 11. Hypertension. 12. Heart failure with reduced ejection fraction of 40% to 45%. DISCHARGE MEDICATIONS: None per the discretion of hospice care and will be doing comfort measures. Discontinue medications at hospice discretion. HISTORY OF PRESENT ILLNESS/HOSPITAL COURSE: Ms. Estefania Lai is a 74-year-old female, who suffered a moderate-sized left occipital subacute infarction of the left posterior cerebral artery CVA and also had sepsis secondary to UTI. Her hospital course showed a grim prognosis as she continued to not be able to pass speech exams to prove an efficient or safe swallow, and her mental status also declined during her hospital course. She had wishes to not be fed via feeding tube per the family. Multiple family conversations with palliative care as well as myself led to the decision for the patient to be placed in hospice care. Before this, she was treated for her UTI first with Rocephin and then switched to cefepime as the urine culture showed Rocephin-resistant Citrobacter freundii greater than 100,000 colonies, and she was also being treated for an LIU and possible CKD. However, due to her heart failure, her fluid status was very difficult to maintain. The fluids were discontinued and she was started back on her home dose of Lasix, which was originally 40 p.o. She was given 20 IV on 10/08. On the morning of 10/09, she is tachycardic, febrile, and tachypneic. She was given a baby bolus of LR D5, 500 mL for comfort measures as well as DE Tylenol. Hospice care took over shortly after 10 a.m. this morning and taking care of the patient to meet her hospice needs. Family is at bedside currently as it is likely she will pass soon. DISPOSITION: Grim prognosis. Transferred to hospice care for end of life care. DISCHARGE INSTRUCTIONS: 1. Location: To [facility] inpatient [facility]. 2. Diet, Activity, and Followup: Per hospice discretion. Job ID: [id number] MTDD
--- NOTE | 2020-10-10 13:40 | CT ---
CT arteriogram neck with IV contrast and 3-D imaging CT arteriogram head with IV contrast and 3-D imaging CT brain with and without IV contrast HISTORY: CVA. Seizure. COMPARISON: Noncontrast exam from earlier on the same date. FINDINGS: There is no evidence of acute intracranial hemorrhage. On the noncontrast study, the subtle area of decreased density at the medial aspect of the left occipital lobe has not changed significantly since the most recent exam. After contrast administration, however, vessels are seen wi thin this area, suggesting that it may represent an old area of infarct. No enhancing brain lesions apparent. Good contrast flow at the aortic arch with normal branching of the great vessels. Good flow into each carotid and vertebral system. No significant plaque. Each internal carotid artery is widely patent. Three [facility] [place] is intact. Right CLIENT SUPPORT CONSULTANT fed primarily from persistent origin right posterior comm unicating artery. Good flow into each cerebral and cerebellar system. No filling defect of the left CLIENT SUPPORT CONSULTANT evident. IMPRESSION : No acute abnormalities are demonstrated. Findings were called to Dr. Lam in the emergency department at 1628 hours. Code CR. Transcribed Date/Time: 10/10/2020 1:40 PM
== END 2020-10-09 10:53 | disposition hospice, inpatient (51) | DRG 64 ==
LOC: ERS 15:01 → 3SE 18:16
PROVIDERS: ADMIT Student in an Organized Health Care Education/Training Program; ATTEND Family Medicine
DX: I63.532 Cerebral infarction due to unspecified occlusion or stenosis of left posterior cerebral artery (principal); L89.153 Pressure ulcer of sacral region, stage 3; A41.9 Sepsis, unspecified organism; J96.01 Acute respiratory failure with hypoxia; K63.1 Perforation of intestine (nontraumatic); R40.2212 Coma scale, best verbal response, none, at arrival to emergency department; I50.22 Chronic systolic (congestive) heart failure; N39.0 Urinary tract infection, site not specified; I47.1 Supraventricular tachycardia; I82.401 Acute embolism and thrombosis of unspecified deep veins of right lower extremity; E87.0 Hyperosmolality and hypernatremia; G93.49 Other encephalopathy; G40.109 Localization-related (focal) (partial) symptomatic epilepsy and epileptic syndromes with simple partial seizures, not intractable, without status epilepticus; I11.0 Hypertensive heart disease with heart failure; E83.52 Hypercalcemia; Z66 Do not resuscitate; B96.89 Other specified bacterial agents as the cause of diseases classified elsewhere; R40.2352 Coma scale, best motor response, localizes pain, at arrival to emergency department; R40.2142 Coma scale, eyes open, spontaneous, at arrival to emergency department; Z88.2 Allergy status to sulfonamides; Z79.01 Long term (current) use of anticoagulants; Z79.51 Long term (current) use of inhaled steroids; Z79.899 Other long term (current) drug therapy; Z85.038 Personal history of other malignant neoplasm of large intestine; Z90.49 Acquired absence of other specified parts of digestive tract; Z90.710 Acquired absence of both cervix and uterus; Z93.3 Colostomy status; Z86.73 Personal history of transient ischemic attack (TIA), and cerebral infarction without residual deficits
CPT/HCPCS: 36415; 36416; 70496; 70498; 70553; 71045; 80048; 80053; 80061; 82310; 83036; 83605; 83880; 84145; 84146; 84443; 85025; 87040; 87077; 87086; 87186; 93005; 94760; 95712; 95816; 95819; 95957; 96365; 96367; A9579; C9113; J0692; J0696; J1650; J1940; J1953; J2060; J3370; J3490; Q9967

== ENCOUNTER 2020-10-09 10:58 | Inpatient (IN) | payer OTHER ==
[2020-10-09 11:39] VITALS: BMI 27.3
[2020-10-09] MEDS ORDERED: Lorazepam 2 MG/ML VIAL SLOW IVP PRN (11:41)
[2020-10-09] MEDS ORDERED: Morphine 2 MG/ML VIAL SLOW IVP PRN (11:42)
[2020-10-09] MEDS ORDERED: Scopolamine 1.5 mg/72 hour Patch TOP SCH (11:45)
[2020-10-09] MEDS: Morphine 2 MG/ML VIAL SLOW IVP SCH ×3 (12:12→23:30)
[2020-10-09] MEDS: Lorazepam 2 MG/ML VIAL SLOW IVP SCH ×3 (12:13→23:29)
[2020-10-10] MEDS: Lorazepam 2 MG/ML VIAL SLOW IVP SCH ×3 (05:14→18:18)
[2020-10-10] MEDS: Morphine 2 MG/ML VIAL SLOW IVP SCH ×3 (05:14→18:18)
[2020-10-10 09:36] VITALS: BP 79/37; TEMP 98.2
== END 2020-10-10 20:00 | disposition expired | DRG 951 ==
LOC: 3SE 10:58 → ONC 18:58
PROVIDERS: ADMIT Family Medicine; ATTEND Family Medicine
DX: Z51.5 Encounter for palliative care (principal); L89.323 Pressure ulcer of left buttock, stage 3; A41.9 Sepsis, unspecified organism; J96.01 Acute respiratory failure with hypoxia; G93.41 Metabolic encephalopathy; N39.0 Urinary tract infection, site not specified; I50.22 Chronic systolic (congestive) heart failure; Z85.038 Personal history of other malignant neoplasm of large intestine; I11.0 Hypertensive heart disease with heart failure; Z86.718 Personal history of other venous thrombosis and embolism
CPT/HCPCS: J2060; J2270